=== PATIENT | male | born 1960 | race Caucasian/White ===

== ENCOUNTER 2016-04-03 13:30 | Emergency (ER) | payer SELFPAY ==
[~2016-04-03] VITALS: Ht 172.7 cm; Wt 60.0 kg
[~2016-04-03 13:30] MED LIST: BACT2OIN TOP; DARV PO; LISI10TA PO; METOPROLOL PO; SULF1TAB47 PO
[2016-04-03 13:31] VITALS: BP 193/124; PULSE 123; RESP 16; TEMP 98.2; O2SAT 97
== END 2016-04-03 14:47 | disposition left against medical advice (07) ==
LOC: NED 13:30
DX: R68.89 Other general symptoms and signs (principal); Z53.21 Procedure and treatment not carried out due to patient leaving prior to being seen by health care provider
CPT/HCPCS: 99281

== ENCOUNTER 2016-06-21 16:33 | Emergency (ER) | payer OTHER ==
[~2016-06-21] VITALS: Ht 175.3 cm; Wt 58.0 kg
[2016-06-21 17:09] VITALS: BP 201/123; PULSE 113; RESP 16; TEMP 98.8; O2SAT 98
[2016-06-21] MEDS ORDERED: LISI-519 PO (17:21)
[2016-06-21] MEDS ORDERED: OMEP40CA2 PO (17:21)
[2016-06-21] MEDS ORDERED: HYDR50TA94 PO (17:21)
[2016-06-21] MEDS ORDERED: OMEP20CA2 (17:21)
[2016-06-21] MEDS ORDERED: TRAZ50TA12 PO (17:21)
[2016-06-21] MEDS ORDERED: LISI2.5T3 PO (17:21)
[2016-06-21] MEDS ORDERED: FOLI5CAP PO (17:21)
[2016-06-21 17:22] VITALS: BP 201/123; PULSE 108; RESP 20; O2SAT 95
[2016-06-21] MEDS ORDERED: cloNIDine HCL 0.2 MG TAB PO ONE (17:30)
[2016-06-21] MEDS ORDERED: SODIUM CHLORIDE 0.9% FLUSH 10 ML FLUSH IVF PRN (17:30)
[2016-06-21] MEDS ORDERED: SODIUM CHLOR 0.9% 1000 ML INJ 1,000 ML IV ONE ×2 (17:30)
[2016-06-21] MEDS ORDERED: LORazepam 2 MG/ML VIAL IV PUSH ONE (17:45)
--- NOTE | 2016-06-21 17:46 | PD ---
HPI Chief Complaint: Hypertension Time Seen by Provider: 17:09 Travel History International Travel<30 days: No Contact w/Intl Traveler<30days: No Traveled to known affect area: No History of Present Illness HPI Patient is a 55-year-old male with history of alcohol abuse, hypertension, drug abuse, COPD with "chronic bronchitis" who presents to emergency room for evaluation of hypertension. Patient reports that he was sent to the [facility] at the [facility] as he went for checkup today. Patient reports that he currently is taking lisinopril 7.5 mg daily, patient is unsure if he took his medications this morning. Patient was told to emergency room as his blood pressure was elevated. Patient reports that he does have a slight frontal headache at this time, patient denies vision changes, denies nausea or vomiting. Patient denies chest pain or shortness of breath. Patient denies any abdominal pain, no other complaints at this time. Patient endorses that he is an alcoholic, reports that he did drink around 2 beers today as well as a shot of whiskey, he reports that he is hungry as he did not eat anything all day. Patient also endorses that he abused opioids in the past. Patient reports that he took himself off his opioids 3 months ago "Cold turkey." Patient with no other complaints. PFSH Past Medical History Cardiovascular Problems: Yes (HTN) Diminished Hearing: No Hypertension: Yes Ulcer: Yes Past Surgical History Tonsillectomy: Yes Social History Alcohol Use: Yes Tobacco Use: Yes (2 PPD) Substance Use: No Allergies-Medications (Allergen,Severity, Reaction): Coded Allergies: No Known Allergies (Verified , 09/17/07) Reported Meds & Prescriptions Reported Meds & Active Scripts Active Bactroban 2% Oint (22 gm) (Mupirocin) 22 Gm Oint 2 % TOP BID 7 Days APPLY TO AFFECTED AREAS Bactrim Ds (Trimethoprim/Sulfamethoxazole) Tab 1 Tab PO BID Darvocet-N 100 (Propoxyphene Napsylate/Acetam) Tab 1 Tab PO Q6HPRN FOR PAIN Reported Trazodone (Trazodone HCl) 50 Mg Tab 75 Mg PO HS Lisinopril 5 Mg Tab 5 Mg PO DAILY Lisinopril 2.5 Mg Tab 2.5 Mg PO DAILY Hydroxyzine HCl 50 Mg Tab 50 Mg PO HS Folic Acid 5 Mg Cap 1 Mg PO DAILY Omeprazole 40 Mg Cap 40 Mg PO DAILY Omeprazole 20 Mg Cap [Metoprolol] 25 Mg PO BID Lisinopril/Hctz 10 mg/12.5 mg 10 mg/12.5 mg Tab 1 Tab PO DAILY Review of Systems General / Constitutional: No: Fever, Chills Eyes: No: Diploplia, Visual changes HENT: Positive: Headaches Cardiovascular: No: Chest Pain or Discomfort Respiratory: Positive: Cough, Shortness of Breath Gastrointestinal: No: Abdominal Pain Genitourinary: No: Dysuria Musculoskeletal: No: Pain Skin: No Rash Neurologic: No: Weakness Psychiatric: No: Depression Endocrine: No: Polydipsia Hematologic/Lymphatic: No: Easy Bruising Physical Exam Narrative GENERAL: pt intoxicated SKIN: Focused skin assessment warm/dry. HEAD: Atraumatic. Normocephalic. EYES: Pupils equal and round. No scleral icterus. No injection or drainage. ENT: No nasal bleeding or discharge. Mucous membranes pink and moist. NECK: Trachea midline. No JVD. CARDIOVASCULAR: tachycardia. No murmur appreciated. RESPIRATORY: No accessory muscle use. scattered wheezing on exam GASTROINTESTINAL: Abdomen soft, non-tender, nondistended. Hepatic and splenic margins not palpable. MUSCULOSKELETAL: No obvious deformities. No clubbing. No cyanosis. No edema. NEUROLOGICAL: Awake and alert. No obvious cranial nerve deficits. Motor grossly within normal limits. Normal speech. PSYCHIATRIC: Appropriate mood and affect; insight and judgment normal. Data Data Last Documented VS Vital Signs Date Time Temp Pulse Resp B/P Pulse Ox O2 Delivery O2 Flow Rate FiO2 06/21/16 18:30 100 18 188/100 99 Room Air 06/21/16 17:09 98.8 Orders Electrocardiogram (06/21/16 17:26) Prothrombin Time / Inr (Pt) (06/21/16 17:26) Act Partial Throm Time (Ptt) (06/21/16 17:26) Complete Blood Count With Diff (06/21/16 17:26) Comprehensive Metabolic Panel (06/21/16 17:26) Drug Screen, Random Urine (06/21/16 17:26) Urinalysis - C+S If Indicated (06/21/16 17:26) Ct Brain W/O Iv Contrast(Rout) (06/21/16 17:26) Chest, Single Ap (06/21/16 17:26) Ecg Monitoring (06/21/16 17:26) Iv Access Insert/Monitor (06/21/16 17:26) Oximetry (06/21/16 17:26) Sodium Chloride 0.9% Flush (Ns Flush) (06/21/16 17:30) Sodium Chlor 0.9% 1000 Ml Inj (Ns 1000 M (06/21/16 17:30) Clonidine (Catapres) (06/21/16 17:30) Sodium Chlor 0.9% 1000 Ml Inj (Ns 1000 M (06/21/16 17:30) Lorazepam Inj (Ativan Inj) (06/21/16 17:45) Alcohol (Ethanol) (06/21/16 17:45) Labs Laboratory Tests Test 06/21/16 06/21/16 17:30 17:45 Urine Color YELLOW Urine Turbidity CLEAR Urine pH 5.5 Urine Specific [place] 1.013 Urine Protein TRACE mg/dL Urine Glucose (UA) 150 mg/dL Urine Ketones NEG mg/dL Urine Occult Blood NEG Urine Nitrite NEG Urine Bilirubin NEG Urine Urobilinogen LESS THAN 2.0 MG/DL Urine Leukocyte Esterase NEG Urine WBC 1 /hpf Urine Hyaline Casts 2 /lpf Urine Mucus FEW /lpf Microscopic Urinalysis Comment CATH-CULT NOT IND Urine Opiates Screen NEG Urine Barbiturates Screen NEG Urine Amphetamines Screen NEG Urine Benzodiazepines Screen NEG Urine Cocaine Screen NEG Urine Cannabinoids Screen POS White Blood Count 5.4 TH/MM3 Red Blood Count 3.73 MIL/MM3 Hemoglobin 13.5 GM/DL Hematocrit 38.8 % Mean Corpuscular Volume 104.0 FL Mean Corpuscular Hemoglobin 36.3 PG Mean Corpuscular Hemoglobin 34.9 % Concent Red Cell Distribution Width 14.3 % Platelet Count 234 TH/MM3 Mean Platelet Volume 8.0 FL Neutrophils (%) (Auto) 61.7 % Lymphocytes (%) (Auto) 27.0 % Monocytes (%) (Auto) 9.1 % Eosinophils (%) (Auto) 1.0 % Basophils (%) (Auto) 1.2 % Neutrophils # (Auto) 3.3 TH/MM3 Lymphocytes # (Auto) 1.4 TH/MM3 Monocytes # (Auto) 0.5 TH/MM3 Eosinophils # (Auto) 0.1 TH/MM3 Basophils # (Auto) 0.1 TH/MM3 CBC Comment DIFF FINAL Differential Comment Prothrombin Time 10.4 SEC Prothromb Time International 0.9 RATIO Ratio Activated Partial 24.5 SEC Thromboplast Time Sodium Level 144 MEQ/L Potassium Level 3.4 MEQ/L Chloride Level 111 MEQ/L Carbon Dioxide Level 22.2 MEQ/L Anion Gap 11 MEQ/L Blood Urea Nitrogen 4 MG/DL Creatinine 0.62 MG/DL Estimat Glomerular Filtration 135 ML/MIN Rate Random Glucose 62 MG/DL Calcium Level 8.0 MG/DL Total Bilirubin 0.3 MG/DL Aspartate Amino Transf 45 U/L (AST/SGOT) Alanine Aminotransferase 23 U/L (ALT/SGPT) Alkaline Phosphatase 83 U/L Total Protein 6.8 GM/DL Albumin 4.0 GM/DL Ethyl Alcohol Level 318 MG/DL [facility] Medical Decision Making Medical Screen Exam Complete: Yes Emergency Medical Condition: Yes Interpretation(s) EKG at 1735: Sinus tach at 102bpm, qt/qtc: 340/399, no acute st or t wave changes Vital Signs Date Time Temp Pulse Resp B/P Pulse Ox O2 Delivery O2 Flow Rate FiO2 06/21/16 17:22 24 95 06/21/16 17:22 108 20 201/123 95 Room Air 06/21/16 17:09 98.8 113 16 201/123 98 Differential Diagnosis Hypertensive urgency, alcohol abuse, electrolyte abnormality Narrative Course Patient is a 55-year-old male who has history of hypertension, alcohol abuse, drug abuse, COPD, presents to emergency room with complaints of hypertension. Patient reports that he has been compliant with his medications and has been taking lisinopril 7.5 mg daily, patient was at the [facility] for a checkup after last being seen 1.5 years ago. Patient was told to go to the emergency room as his blood pressure was elevated today at 201/123. Patient's heart rate was 113. Patient unsure if he took his blood pressure medications today. Patient does admit to drinking today, reports that he had 2 beers and 1 shot of whiskey. Patient's only complaint at this time is a mild frontal headache as well as "I am hungry." Plan to obtain labs and studies as well ct of head to evaluate for intracranial process. Plan to monitor patient Vital Signs Date Time Temp Pulse Resp B/P Pulse Ox O2 Delivery O2 Flow Rate FiO2 06/21/16 18:30 100 18 188/100 99 Room Air 06/21/16 17:22 24 95 06/21/16 17:22 108 20 201/123 95 Room Air 06/21/16 17:09 98.8 113 16 201/123 98 Laboratory Tests Test 06/21/16 06/21/16 17:30 17:45 Urine Color YELLOW (YELLW/STRAW) Urine Turbidity CLEAR (CLEAR) Urine pH 5.5 (5.0-8.5) Urine Specific [place] 1.013 (1.002-1.035) Urine Protein TRACE mg/dL (NEG-TRACE) Urine Glucose (UA) 150 mg/dL (NEG) Urine Ketones NEG mg/dL (NEG) Urine Occult Blood NEG (NEG) Urine Nitrite NEG (NEG) Urine Bilirubin NEG (NEG) Urine Urobilinogen LESS THAN 2.0 MG/DL (LESS THAN 2.0) Urine Leukocyte Esterase NEG (NEG) Urine WBC 1 /hpf (0-5) Urine Hyaline Casts 2 /lpf (RARE) Urine Mucus FEW /lpf (OCC) Microscopic Urinalysis Comment CATH-CULT NOT IND Urine Opiates Screen NEG (NEG) Urine Barbiturates Screen NEG (NEG) Urine Amphetamines Screen NEG (NEG) Urine Benzodiazepines Screen NEG (NEG) Urine Cocaine Screen NEG (NEG) Urine Cannabinoids Screen POS (NEG) White Blood Count 5.4 TH/MM3 (4.0-11.0) Red Blood Count 3.73 MIL/MM3 (4.50-5.90) Hemoglobin 13.5 GM/DL (13.0-17.0) Hematocrit 38.8 % (39.0-51.0) Mean Corpuscular Volume 104.0 FL (80.0-100.0) Mean Corpuscular Hemoglobin 36.3 PG (27.0-34.0) Mean Corpuscular Hemoglobin 34.9 % Concent (32.0-36.0) Red Cell Distribution Width 14.3 % (11.6-17.2) Platelet Count 234 TH/MM3 (150-450) Mean Platelet Volume 8.0 FL (7.0-11.0) Neutrophils (%) (Auto) 61.7 % (16.0-70.0) Lymphocytes (%) (Auto) 27.0 % (9.0-44.0) Monocytes (%) (Auto) 9.1 % (0.0-8.0) Eosinophils (%) (Auto) 1.0 % (0.0-4.0) Basophils (%) (Auto) 1.2 % (0.0-2.0) Neutrophils # (Auto) 3.3 TH/MM3 (1.8-7.7) Lymphocytes # (Auto) 1.4 TH/MM3 (1.0-4.8) Monocytes # (Auto) 0.5 TH/MM3 (0-0.9) Eosinophils # (Auto) 0.1 TH/MM3 (0-0.4) Basophils # (Auto) 0.1 TH/MM3 (0-0.2) CBC Comment DIFF FINAL Differential Comment Prothrombin Time 10.4 SEC (9.8-11.6) Prothromb Time International 0.9 RATIO Ratio Activated Partial 24.5 SEC Thromboplast Time (24.3-30.1) Sodium Level 144 MEQ/L (136-145) Potassium Level 3.4 MEQ/L (3.5-5.1) Chloride Level 111 MEQ/L (98-107) Carbon Dioxide Level 22.2 MEQ/L (21.0-32.0) Anion Gap 11 MEQ/L (5-15) Blood Urea Nitrogen 4 MG/DL (7-18) Creatinine 0.62 MG/DL (0.60-1.30) Estimat Glomerular Filtration 135 ML/MIN Rate (>89) Random Glucose 62 MG/DL (74-106) Calcium Level 8.0 MG/DL (8.5-10.1) Total Bilirubin 0.3 MG/DL (0.2-1.0) Aspartate Amino Transf 45 U/L (15-37) (AST/SGOT) Alanine Aminotransferase 23 U/L (12-78) (ALT/SGPT) Alkaline Phosphatase 83 U/L (45-117) Total Protein 6.8 GM/DL (6.4-8.2) Albumin 4.0 GM/DL (3.4-5.0) Ethyl Alcohol Level 318 MG/DL (0-5) Last Impressions Head CT 06/21/161725 Signed Impressions: Service Date/Time: Tuesday, June 21, 2016 18:22 - CONCLUSION: No acute abnormality seen. There does appear to be some suspected atrophy. Ed Caicedo MD Chest X-Ray 06/21/161725 Signed Impressions: Service Date/Time: Tuesday, June 21, 2016 17:28 - CONCLUSION: No acute disease. Solomon Magdaleno MD lab work reviewed, etoh 318, cannabis is positive vss at this time. plan to dc patient to home with outpt follow up reviewed all labs and studies with patient in detail. patient will follow up with pcp and will return to ER plan to add norvasc to htn meds Diagnosis Primary Impression: Hypertension Qualified Code: I10 - Essential hypertension Additional Impressions: Alcohol intoxication Hypokalemia Drug abuse Patient Instructions: General Instructions Additional Instructions: Please follow-up with your primary care doctor tomorrow for blood pressure recheck Please take all medications as prescribed Return to emergency with symptoms worsen or progress Return to emergency room as needed Please drink alcohol responsibly Med/Other Pt SpecificInfo: Prescription(s) given Scripts Amlodipine (Norvasc)5 Mg Tab5 Mg PO DAILY #30 TAB Ref 0 Prov:Bri Miller DO 06/21/16 Disposition: 01 DISCHARGE HOME Condition: Stable Bri Miller DO Jun 21, 2016 17:46
--- NOTE | 2016-06-21 17:53 | RADRPT ---
EXAM DATE/TIME: 06/21/2016 17:28 [facility] COMPARISON: No previous studies available for comparison. INDICATIONS : Shortness of breath. MEDICAL HISTORY : Hypertension. SURGICAL HISTORY : None. ENCOUNTER: Initial ACUITY: 1 day PAIN SCORE: 0/10 LOCATION: Bilateral chest FINDINGS: A single view of the chest demonstrates the lungs to be symmetrically aerated without evidence of mas s, infiltrate or effusion. The cardiomediastinal contours are unremarkable. Osseous structures are intact. CONCLUSION: No acute disease. Solomon Magdaleno MD on June 21, 2016 at 17:50 Board Certified Radiologist. This report was verified electronically.
[2016-06-21 18:02] LABS: AUTOMATED NEUTROPHIL # 3.3 TH/MM3 (1.8-7.7); BASOPHIL # 0.1 TH/MM3 (0-0.2); BASOPHIL % 1.2 % (0.0-2.0); EOSINOPHIL # 0.1 TH/MM3 (0-0.4); HEMATOCRIT 38.8 % (39.0-51.0); HEMO FLAGS DIFF FINAL; LYMPHOCYTE # 1.4 TH/MM3 (1.0-4.8); MEAN CORPUSCULAR HEMOGLOBIN 36.3 PG (27.0-34.0); MEAN CORPUSCULAR HGB CONC 34.9 % (32.0-36.0); MONO % 9.1 % (0.0-8.0); NEUT % 61.7 % (16.0-70.0); PLATELET COUNT 234 TH/MM3 (150-450); RED BLOOD COUNT 3.73 MIL/MM3 (4.50-5.90); RED CELL DISTRIBUTION WIDTH 14.3 % (11.6-17.2); WHITE BLOOD COUNT 5.4 TH/MM3 (4.0-11.0)
[2016-06-21 18:11] LABS: APTT (PATIENT) 24.5 SEC (24.3-30.1); INTERNATIONAL NORMALIZED RATIO 0.9 RATIO; PROTHROMBIN TIME - PATIENT 10.4 SEC (9.8-11.6)
[2016-06-21 18:28] LABS: ALT (GPT) 23 U/L (12-78); ANION GAP 11 MEQ/L (5-15); AST (GOT) 45 U/L (15-37); BICARBONATE 22.2 MEQ/L (21.0-32.0); BLOOD UREA NITROGEN 4 MG/DL (7-18); CHLORIDE 111 MEQ/L (98-107); GLOMERULAR FILTRATION RATE 135 ML/MIN (>89); POTASSIUM 3.4 MEQ/L (3.5-5.1); SODIUM (NA) 144 MEQ/L (136-145)
[2016-06-21 18:30] VITALS: BP 188/100; PULSE 100; RESP 18; O2SAT 99
[2016-06-21 18:32] LABS: ALKALINE PHOSPHATASE 83 U/L (45-117); TOTAL BILIRUBIN ADULT 0.3 MG/DL (0.2-1.0)
[2016-06-21 18:39] LABS: BLOOD, URINE NEG (NEG); GLUCOSE,URINE 150 mg/dL (NEG); HYALINE CAST, URINE 2 /lpf (RARE); KETONE, URINE NEG (NEG); MUCUS URINE FEW /lpf (OCC); NITRITE,URINE NEG (NEG); PH, URINE 5.5 (5.0-8.5); URINE COLOR YELLOW (YELLW/STRAW)
[2016-06-21 18:44] LABS: AMPHETAMINE, URINE NEG (NEG); BARBITURATES, URINE NEG (NEG); COCAINE, URINE NEG (NEG)
[2016-06-21 18:49] LABS: COMMENT (UR) CATH-CULT NOT IND; CULTURE IF INDICATED CATH CULTURE NOT IND
--- NOTE | 2016-06-21 19:00 | RADRPT ---
EXAM DATE/TIME: 06/21/2016 18:22 [facility] COMPARISON: No previous studies available for comparison. INDICATIONS : Dizziness. RADIATION DOSE: 36.05 CTDIvol (mGy) MEDICAL HISTORY : Hypertension. Cardiovascular disease SURGICAL HISTORY : None. ENCOUNTER: Initial ACUITY: 1 day PAIN SCALE: 0/10 LOCATION: cranial TECHNIQUE: Multiple contiguous axial images were obtained of the head. Using automated exposure control and adj ustment of the mA and/or kV according to patient size, radiation dose was kept as low as reasonably a chievable to obtain optimal diagnostic quality images. FINDINGS: CEREBRUM: The ventricles and cortical sulci are mildly widened. There is some expansion of the extra-axial spac es over the frontal lobes. No evidence of midline shift, mass lesion, hemorrhage or acute infarctio n. No focal extra-axial fluid collections are seen. POSTERIOR FOSSA: The cerebellum and brainstem are intact. The 4th ventricle is midline. The cerebellopontine angle i s unremarkable. EXTRACRANIAL: The visualized portion of the orbits is intact. SKULL: The calvaria is intact. No evidence of skull fracture. CONCLUSION: No acute abnormality seen. There does appear to be some suspected atrophy. Ed Caicedo MD on June 21, 2016 at 18:56 Board Certified Radiologist. This report was verified electronically.
[2016-06-21] MEDS ORDERED: AMLO5 PO (19:32)
--- NOTE | 2016-06-22 19:21 | EKG ---
Date Performed: 06/21/2016 Time Performed: 17:35:42 PTAGE: 55 years EKG: SINUS TACHYCARDIA ABNORMAL RHYTHM ECG NO PREVIOUS TRACING DOCTOR: Nahomi Lawson Interpretating Date/Time 06/22/2016 19:20:38
== END 2016-06-21 20:23 | disposition home or self-care (01) ==
LOC: NEPD 16:33
DX: I10 Essential (primary) hypertension (principal); F10.129 Alcohol abuse with intoxication, unspecified; E87.6 Hypokalemia; F19.10 Other psychoactive substance abuse, uncomplicated; R00.0 Tachycardia, unspecified; R51 Headache; F17.200 Nicotine dependence, unspecified, uncomplicated; Z87.09 Personal history of other diseases of the respiratory system; Z87.19 Personal history of other diseases of the digestive system
CPT/HCPCS: 70450; 71010; 80053; 80307; 81001; 85025; 85610; 85730; 93005; 96361; 96374; 99284; J2060; J7030

== ENCOUNTER 2016-07-30 22:45 | Emergency (ER) | payer OTHER ==
[~2016-07-30 22:45] MED LIST changes: +AMLO5 PO; +FOLI5CAP PO; +HYDR50TA94 PO; +LISI-519 PO; +LISI2.5T3 PO; +OMEP20CA2; +OMEP40CA2 PO; +TRAZ50TA12 PO
[2016-07-30 22:55] VITALS: BP 189/109; PULSE 112; RESP 18; TEMP 98.4; O2SAT 99
[2016-07-30] MEDS ORDERED: GABA400C5 PO (22:59)
[2016-07-30] MEDS ORDERED: LISI-519 PO (22:59)
[2016-07-30] MEDS ORDERED: oxyCODONE/ACETAMINOPHEN 10 MG/325 MG TAB PO ONE (23:00)
--- NOTE | 2016-07-30 23:26 | PD ---
HPI Chief Complaint: Pain: Acute or Chronic Time Seen by Provider: 22:56 Travel History International Travel<30 days: No Contact w/Intl Traveler<30days: No Traveled to known affect area: No History of Present Illness HPI 56yo M with alcohol abuse, COPD, HTN here because he ran out of his percocet today. States he broke his L5 and has a brace on and went to [facility] for this on July 13. States he was discharge with percocet and followed up with his PMD at the [facility]. However, states they only gave him gabapentin at the [facility] and it is not helping. Denies any new injury, fever, new weakness or numbness, chest pain, sob, n/v, urinary complaints. Pt has shooting pain down left leg and this is not new. PFSH Past Medical History Cardiovascular Problems: Yes (HTN) Diminished Hearing: No Gastrointestinal Disorders: Yes (ulcers) GERD: Yes (ulcer) Hypertension: Yes Musculoskeletal: Yes (BACK FX 07/13/16) Immunizations Current: Yes Ulcer: Yes Past Surgical History Tonsillectomy: Yes Other Surgery: Yes (egd) Social History Alcohol Use: Yes (beer daily) Tobacco Use: Yes Substance Use: Yes (occu. last time 3 days ago) Allergies-Medications (Allergen,Severity, Reaction): Coded Allergies: No Known Allergies (Verified , 07/30/16) Reported Meds & Prescriptions Reported Meds & Active Scripts Active Reported Lisinopril 5 Mg Tab 5 Mg PO DAILY Gabapentin 400 Mg Cap 400 Cap PO TID Review of Systems Except as stated in HPI: all other systems reviewed are Neg Physical Exam Narrative GENERAL: 56yo M in moderate distress. SKIN: Focused skin assessment warm/dry. HEAD: Atraumatic. Normocephalic. CARDIOVASCULAR: Regular rate and rhythm. No murmur appreciated. RESPIRATORY: No accessory muscle use. Clear to auscultation. Breath sounds equal bilaterally. GASTROINTESTINAL: Abdomen soft, non-tender, nondistended. BACK: No step off. No hematoma, erythema. +TTP L5. TLSO brace on. MUSCULOSKELETAL: No obvious deformities. No clubbing. No cyanosis. Trace bilateral lower ext edema. NEUROLOGICAL: Awake and alert. No obvious cranial nerve deficits. Muscle strength equal. Sensation equal in bilateral lower ext. Positive straight leg test on left. Not new. Normal speech. PSYCHIATRIC: Appropriate mood and affect; insight and judgment normal. Data Data Last Documented VS Vital Signs Date Time Temp Pulse Resp B/P Pulse Ox O2 Delivery O2 Flow Rate FiO2 07/30/16 22:55 98.4 112 18 189/109 99 Orders Oxycodone-Acetamin 10-325 Mg (Percocet 1 (07/30/16 23:00) MDM Medical Decision Making Medical Screen Exam Complete: Yes Emergency Medical Condition: Yes Differential Diagnosis Malingering vs. chronic pain secondary to L5 fracture Narrative Course 56yo M with recent history of L5 fracture in a back brace here because he ran out of his percocet this afternoon. He states that [facility] would not give him any more pain medication. Denies any new trauma. Denies any fever, IVDA, new weakness or numbness or urinary complaints. Pt given percocet 10-325mg here and states pain has improved. Pt states he needs more pain medication to go home with. However, I looked him up on [place] [facility] Monitoring [facility] and he was prescribed #30 percocet 10-[address] Mason Marmolejo on 07/23/16 and #12 percocet 10-325 on 07/20/[address] Arroyo. Pt instructed to follow up with pain management as outpatient for further pain management. Diagnosis Primary Impression: Chronic pain Qualified Code: G89.29 - Other chronic pain Patient Instructions: General Instructions, Narcotic given in the ED Departure Forms: Tests/Procedures Additional Instructions: Please follow up with your PMD or pain management as outpatient. Return to the ED if symptoms worsen. Med/Other Pt SpecificInfo: Prescription(s) given Scripts Ibuprofen 400 Mg [id number] Mg PO Q8H PRN (PAIN SCALE 1 TO 4) #20 TAB Ref 0 Prov:Selena Em DO 07/31/16 Disposition: 01 DISCHARGE HOME Condition: Stable Selena Em DO Jul 30, 2016 23:26
[2016-07-31] MEDS ORDERED: IBUP400T20 PO (00:31)
[2016-07-31 01:55] VITALS: BP 190/119; PULSE 103; RESP 16; O2SAT 96
[2016-07-31] MEDS ORDERED: LISINOPRIL 5 MG TAB PO ONE (02:30)
[2016-07-31 03:31] VITALS: BP 174/92; PULSE 98; RESP 16; O2SAT 97
== END 2016-07-31 06:14 | disposition home or self-care (01) ==
LOC: NEPC 22:45
DX: G89.29 Other chronic pain (principal); M54.5 Low back pain; Z87.81 Personal history of (healed) traumatic fracture; Z91.81 History of falling; I10 Essential (primary) hypertension; K21.9 Gastro-esophageal reflux disease without esophagitis; Z87.891 Personal history of nicotine dependence
CPT/HCPCS: 99283

== ENCOUNTER 2016-08-15 06:26 | Emergency (ER) | payer OTHER ==
[~2016-08-15] VITALS: Ht 172.7 cm; Wt 60.0 kg
[~2016-08-15 06:26] MED LIST changes: -AMLO5 PO; -BACT2OIN TOP; -DARV PO; -FOLI5CAP PO; +GABA400C5 PO; -HYDR50TA94 PO; +IBUP400T20 PO; -LISI10TA PO; -LISI2.5T3 PO; -METOPROLOL PO; -OMEP20CA2; -OMEP40CA2 PO; -SULF1TAB47 PO; -TRAZ50TA12 PO
[2016-08-15 06:37] VITALS: BP 169/120; PULSE 110; RESP 16; TEMP 98.8; O2SAT 98
[2016-08-15 06:44] VITALS: BP 169/120; PULSE 110; RESP 14; O2SAT 99
--- NOTE | 2016-08-15 06:54 | PD ---
HPI Chief Complaint: Psychiatric Symptoms Time Seen by Provider: 06:50 Travel History International Travel<30 days: No Contact w/Intl Traveler<30days: No Traveled to known affect area: No History of Present Illness HPI Patient is a 56 year old male presenting to the emergency Department under [place] act for making suicidal ideations after he called 911 seeking help for his broken back. He told the plating operator that he was "close to committing suicide ". Patient takes that he has a fractured lumbar vertebrae, this was diagnosed in June at [facility]. Patient admits drinking alcohol today, he denies any suicidal or homicidal ideations. PFSH Past Medical History Cardiovascular Problems: Yes (HTN) Diminished Hearing: No Gastrointestinal Disorders: Yes (ulcers) GERD: Yes (ulcer) Hypertension: Yes Musculoskeletal: Yes (BACK FX 07/13/16) Immunizations Current: Yes Ulcer: Yes Past Surgical History Tonsillectomy: Yes Other Surgery: Yes (egd) Social History Alcohol Use: Yes (beer daily) Tobacco Use: Yes Substance Use: Yes (not in the last 30 days) Allergies-Medications (Allergen,Severity, Reaction): Coded Allergies: No Known Allergies (Verified , 08/18/16) Reported Meds & Prescriptions Reported Meds & Active Scripts Active Ibuprofen 400 Mg Tab 400 Mg PO Q8H PRN Reported Lisinopril 5 Mg Tab 5 Mg PO DAILY Gabapentin 400 Mg Cap 400 Cap PO TID Review of Systems Except as stated in HPI: all other systems reviewed are Neg Psychiatric: Positive: Suicidal Ideations, Substance Abuse Physical Exam Exam Limitations: Intoxication Narrative GENERAL: Thin, well-developed, alert male. Resting comfortably in no acute distress SKIN: Focused skin assessment warm/dry. HEAD: Atraumatic. Normocephalic. EYES: Pupils equal and round. No scleral icterus. No injection or drainage. ENT: No nasal bleeding or discharge. Mucous membranes pink and moist. NECK: Trachea midline. No JVD. CARDIOVASCULAR: Regular rate and rhythm. No murmur appreciated. RESPIRATORY: No accessory muscle use. Clear to auscultation. Breath sounds equal bilaterally. GASTROINTESTINAL: Abdomen soft, non-tender, nondistended. Hepatic and splenic margins not palpable. MUSCULOSKELETAL: No obvious deformities. No clubbing. No cyanosis. No edema. NEUROLOGICAL: Awake and alert. No obvious cranial nerve deficits. Motor grossly within normal limits. Normal speech. PSYCHIATRIC: Appropriate mood and affect; insight and judgment normal. Data Data Last Documented VS Vital Signs Date Time Temp Pulse Resp B/P Pulse Ox O2 Delivery O2 Flow Rate FiO2 08/15/16 11:15 120 18 144/105 97 Room Air 08/15/16 06:37 98.8 Orders Complete Blood Count With Diff (08/15/16 06:44) Comprehensive Metabolic Panel (08/15/16 06:44) Psych Screen (08/15/16 06:44) Drug Screen, Random Urine (08/15/16 06:44) Alcohol (Ethanol) (08/15/16 06:44) Salicylates (Aspirin) (08/15/16 06:44) Tylenol (Acetaminophen) (08/15/16 06:44) Ibuprofen (Motrin) (08/15/16 07:00) Special Diet Instructions (08/15/16 08:03) Diet Regular Basic (08/15/16 Breakfast) Labs Laboratory Tests Test 08/15/16 08/15/16 06:45 07:15 White Blood Count 6.8 TH/MM3 Red Blood Count 3.92 MIL/MM3 Hemoglobin 13.8 GM/DL Hematocrit 39.9 % Mean Corpuscular Volume 101.8 FL Mean Corpuscular Hemoglobin 35.2 PG Mean Corpuscular Hemoglobin 34.6 % Concent Red Cell Distribution Width 13.7 % Platelet Count 460 TH/MM3 Mean Platelet Volume 8.0 FL Neutrophils (%) (Auto) 56.4 % Lymphocytes (%) (Auto) 29.6 % Monocytes (%) (Auto) 10.9 % Eosinophils (%) (Auto) 1.8 % Basophils (%) (Auto) 1.3 % Neutrophils # (Auto) 3.8 TH/MM3 Lymphocytes # (Auto) 2.0 TH/MM3 Monocytes # (Auto) 0.7 TH/MM3 Eosinophils # (Auto) 0.1 TH/MM3 Basophils # (Auto) 0.1 TH/MM3 CBC Comment DIFF FINAL Differential Comment Sodium Level 135 MEQ/L Potassium Level 3.2 MEQ/L Chloride Level 100 MEQ/L Carbon Dioxide Level 21.2 MEQ/L Anion Gap 14 MEQ/L Blood Urea Nitrogen 4 MG/DL Creatinine 0.60 MG/DL Estimat Glomerular Filtration 140 ML/MIN Rate Random Glucose 94 MG/DL Calcium Level 9.2 MG/DL Total Bilirubin 0.2 MG/DL Aspartate Amino Transf 22 U/L (AST/SGOT) Alanine Aminotransferase 20 U/L (ALT/SGPT) Alkaline Phosphatase 116 U/L Total Protein 7.0 GM/DL Albumin 3.6 GM/DL Salicylates Level 4.2 MG/DL Acetaminophen Level LESS THAN 2.0 MCG/ML Ethyl Alcohol Level 277 MG/DL Urine Opiates Screen NEG Urine Barbiturates Screen NEG Urine Amphetamines Screen NEG Urine Benzodiazepines Screen NEG Urine Cocaine Screen NEG Urine Cannabinoids Screen NEG MDM Medical Decision Making Medical Screen Exam Complete: Yes Emergency Medical Condition: Yes Interpretation(s) Vital Signs Date Time Temp Pulse Resp B/P Pulse Ox O2 Delivery O2 Flow Rate FiO2 08/15/16 06:44 110 14 169/120 99 Room Air 08/15/16 06:37 98.8 110 16 169/120 98 Differential Diagnosis Mood disorder versus substance abuse versus suicidal ideations versus chronic pain versus malingering versus other Narrative Course Patient is a 56-year-old male presenting to the emergency Department under [place] act for making suicidal statements to a tying machine operator. Mental health screening discussed with the patient. Psychiatric screen ordered. Ibuprofen ordered for pain. Care of patient transferred to Paulino LOPEZ, he will determine patient's disposition. Babita Hoffman Aug 15, 2016 06:53
[2016-08-15] MEDS ORDERED: IBUPROFEN 800 MG TAB PO ONE (07:00)
[2016-08-15 07:13] LABS: AUTOMATED NEUTROPHIL # 3.8 TH/MM3 (1.8-7.7); BASOPHIL # 0.1 TH/MM3 (0-0.2); BASOPHIL % 1.3 % (0.0-2.0); EOSINOPHIL # 0.1 TH/MM3 (0-0.4); EOSINOPHIL % 1.8 % (0.0-4.0); HEMATOCRIT 39.9 % (39.0-51.0); HEMO FLAGS DIFF FINAL; LYMPH % 29.6 % (9.0-44.0); MEAN CELL VOLUME 101.8 FL (80.0-100.0); MEAN CORPUSCULAR HEMOGLOBIN 35.2 PG (27.0-34.0); MEAN CORPUSCULAR HGB CONC 34.6 % (32.0-36.0); MONO % 10.9 % (0.0-8.0); NEUT % 56.4 % (16.0-70.0); PLATELET COUNT 460 TH/MM3 (150-450); RED BLOOD COUNT 3.92 MIL/MM3 (4.50-5.90); RED CELL DISTRIBUTION WIDTH 13.7 % (11.6-17.2); WHITE BLOOD COUNT 6.8 TH/MM3 (4.0-11.0)
[2016-08-15 07:26] LABS: ANION GAP 14 MEQ/L (5-15); AST (GOT) 22 U/L (15-37); BICARBONATE 21.2 MEQ/L (21.0-32.0); BLOOD UREA NITROGEN 4 MG/DL (7-18); CHLORIDE 100 MEQ/L (98-107); GLOMERULAR FILTRATION RATE 140 ML/MIN (>89); POTASSIUM 3.2 MEQ/L (3.5-5.1); SODIUM (NA) 135 MEQ/L (136-145)
[2016-08-15 07:27] LABS: ALT (GPT) 20 U/L (12-78)
[2016-08-15 07:29] LABS: ACETAMINOPHEN LESS THAN 2.0 MCG/ML (10.0-30.0); ALKALINE PHOSPHATASE 116 U/L (45-117); TOTAL BILIRUBIN ADULT 0.2 MG/DL (0.2-1.0)
[2016-08-15 07:38] LABS: AMPHETAMINE, URINE NEG (NEG); BARBITURATES, URINE NEG (NEG); COCAINE, URINE NEG (NEG)
[2016-08-15 09:44] VITALS: RESP 16; O2SAT 99
--- NOTE | 2016-08-15 11:11 | PD ---
History of Present Illness Chief Complaint: Psychiatric Symptoms Time Seen by Provider: 11:00 Travel History International Travel<30 Days: No Contact w/Intl Traveler<30days: No Known affected area: No Legal Status Legal Status: Lees Act Lees Act Signed By: History of Present Illness: 69-year-old 56-year-old male calling 911 for help with his broken back. Apparently he told the extrusion operator that he was close to committing suicide. He was then Lees acted by law enforcement. Patient apparently was drinking alcohol on this day and has a fractured lumbar vertebrae diagnosed last month. He is denying any suicidal or homicidal ideation plan or intent at this time. He is no longer intoxicated. His cognition is intact. He demonstrates no psychotic symptoms and is felt to be competent. He is verbally leonie for safety. PFSH Past Medical History Cardiovascular Problems: Yes (HTN) Diminished Hearing: No Gastrointestinal Disorders: Yes (ulcers) GERD: Yes (ulcer) Hypertension: Yes Musculoskeletal: Yes (BACK FX 07/13/16) Immunizations Current: Yes Ulcer: Yes Past Surgical History Tonsillectomy: Yes Other Surgery: Yes (egd) Psychiatric History Psychiatric History Hx Psychiatric Treatment: Denies History of Inpatient Treatment: No Guns or firearms in home: No Social History Hx Alcohol Use: Yes (beer daily) Hx Tobacco Use: Yes Hx Substance Use: Yes (not in the last 30 days) Hx of Substance Use Treatment: No Allergies-Medications (Allergen,Severity, Reaction): Coded Allergies: No Known Allergies (Verified , 08/15/16) Reported Meds & Prescriptions Reported Meds & Active Scripts Active Ibuprofen 400 Mg Tab 400 Mg PO Q8H PRN Reported Lisinopril 5 Mg Tab 5 Mg PO DAILY Gabapentin 400 Mg Cap 400 Cap PO TID Review of Systems Except as stated in HPI: all other systems reviewed are Neg Musculoskeletal: COMPLAINS OF: Back pain Exam Alert: Yes [place]: Person, Place, Date, Situation Mood: Calm Affect: Appropriate Speech: Clear, Logical Eye Contact: Normal Memory Intact: Immediate, Recent, Remote Insight/Judgement Adequate MDM Medical Decision Making Medical Record Reviewed: Yes Assessment/Plan This physician spoke with the patient's nurse. Apparently he has several problems which include newly diagnosed back pain, a history of alcohol abuse and significant current frustration with a lack of treatment for what is reported to be a fractured vertebrae. However, the patient is no longer intoxicated and he is competent to contract for safety. He would like to be treated for his back pain on an outpatient basis. Despite the fact that the patient made suicidal comments and is abusing alcohol, it is felt he does not meet Lees act criteria or inpatient psychiatric criteria. He was referred to [facility] for assistance with alcoholism. Orders Complete Blood Count With Diff (08/15/16 06:44) Comprehensive Metabolic Panel (08/15/16 06:44) Psych Screen (08/15/16 06:44) Drug Screen, Random Urine (08/15/16 06:44) Alcohol (Ethanol) (08/15/16 06:44) Salicylates (Aspirin) (08/15/16 06:44) Tylenol (Acetaminophen) (08/15/16 06:44) Ibuprofen (Motrin) (08/15/16 07:00) Special Diet Instructions (08/15/16 08:03) Diet Regular Basic (08/15/16 Breakfast) Results Vital Signs Date Time Temp Pulse Resp B/P Pulse Ox O2 Delivery O2 Flow Rate FiO2 08/15/16 09:44 16 99 Room Air 08/15/16 09:17 14 08/15/16 06:44 110 14 169/120 99 Room Air 08/15/16 06:37 98.8 110 16 169/120 98 Laboratory Tests Test 08/15/16 08/15/16 06:45 07:15 White Blood Count 6.8 Red Blood Count 3.92 Hemoglobin 13.8 Hematocrit 39.9 Mean Corpuscular Volume 101.8 Mean Corpuscular Hemoglobin 35.2 Mean Corpuscular Hemoglobin 34.6 Concent Red Cell Distribution Width 13.7 Platelet Count 460 Mean Platelet Volume 8.0 Neutrophils (%) (Auto) 56.4 Lymphocytes (%) (Auto) 29.6 Monocytes (%) (Auto) 10.9 Eosinophils (%) (Auto) 1.8 Basophils (%) (Auto) 1.3 Neutrophils # (Auto) 3.8 Lymphocytes # (Auto) 2.0 Monocytes # (Auto) 0.7 Eosinophils # (Auto) 0.1 Basophils # (Auto) 0.1 CBC Comment DIFF FINAL Differential Comment Sodium Level 135 Potassium Level 3.2 Chloride Level 100 Carbon Dioxide Level 21.2 Anion Gap 14 Blood Urea Nitrogen 4 Creatinine 0.60 Estimat Glomerular Filtration 140 Rate Random Glucose 94 Calcium Level 9.2 Total Bilirubin 0.2 Aspartate Amino Transf 22 (AST/SGOT) Alanine Aminotransferase 20 (ALT/SGPT) Alkaline Phosphatase 116 Total Protein 7.0 Albumin 3.6 Salicylates Level 4.2 Acetaminophen Level LESS THAN 2.0 Ethyl Alcohol Level 277 Urine Opiates Screen NEG Urine Barbiturates Screen NEG Urine Amphetamines Screen NEG Urine Benzodiazepines Screen NEG Urine Cocaine Screen NEG Urine Cannabinoids Screen NEG Diagnosis Primary Impression: Adjustment disorder with mixed disturbance of emotions and conduct Additional Impression: Alcohol abuse Problem Qualifiers Eagle Rainey MD Aug 15, 2016 11:11
[2016-08-15 11:15] VITALS: BP 144/105; PULSE 120; RESP 18; O2SAT 97
== END 2016-08-15 11:36 | disposition home or self-care (01) ==
LOC: NEPD 06:26 → NEPJ 11:36
DX: F43.25 Adjustment disorder with mixed disturbance of emotions and conduct (principal); F10.129 Alcohol abuse with intoxication, unspecified; Y90.8 Blood alcohol level of 240 mg/100 ml or more; I10 Essential (primary) hypertension; K21.9 Gastro-esophageal reflux disease without esophagitis; Z72.0 Tobacco use
CPT/HCPCS: 80053; 80307; 85025; 99283

== ENCOUNTER 2016-08-18 16:23 | Inpatient (IN) | payer OTHER ==
[~2016-08-18] VITALS: Ht 170.2 cm; Wt 51.8 kg
[2016-08-18] VITALS (8 sets, daily range): BP systolic 127–183; BP diastolic 64–132; PULSE 55–116; RESP 14–23; TEMP 97.5–98.5; O2SAT 95–100
[2016-08-18] MEDS ORDERED: SODIUM CHLOR 0.9% 1000 ML INJ 1,000 ML IV SCH (16:49)
--- NOTE | 2016-08-18 16:54 | PD ---
HPI Chief Complaint: Altered Mental Status Time Seen by Provider: 16:47 Travel History International Travel<30 days: No Contact w/Intl Traveler<30days: No Traveled to known affect area: No History of Present Illness HPI 56yo M with PMH of alcohol abuse presents to the ED with altered mental status today. Pt was seen at [facility] on 08/15/16 as a Lees Act for suicidal ideation and was clear for discharge by psych. Pt apparently went to his girlfriend's house after discharge and has been in her yard since then. Pt dug a hole in her yard and has been laying there since then and she decided to call [facility] today. Pt is AAOx1, disheveled and not following commands. Pt moving all extremities. PFSH Past Medical History Cardiovascular Problems: Yes (HTN) Diminished Hearing: No Gastrointestinal Disorders: Yes (ulcers) GERD: Yes (ulcer) Hypertension: Yes Musculoskeletal: Yes (BACK FX 07/13/16) Immunizations Current: Yes Ulcer: Yes Past Surgical History Surgical History: Unable to Obtain Tonsillectomy: Yes Other Surgery: Yes (egd) Social History Alcohol Use: Yes (beer daily) Tobacco Use: Yes Substance Use: Yes (not in the last 30 days) Allergies-Medications (Allergen,Severity, Reaction): Coded Allergies: No Known Allergies (Verified , 08/18/16) Reported Meds & Prescriptions Reported Meds & Active Scripts Active Ibuprofen 400 Mg Tab 400 Mg PO Q8H PRN Reported Lisinopril 5 Mg Tab 5 Mg PO DAILY Gabapentin 400 Mg Cap 400 Cap PO TID Review of Systems ROS Limitations: Altered Mental Status Physical Exam Narrative GENERAL: 56yo M in distress. SKIN: Focused skin assessment warm/dry. HEAD: Atraumatic. Normocephalic. EYES: Pupils equal and round at 4mm bilaterally. No scleral icterus. No injection or drainage. ENT: No nasal bleeding or discharge. Mucous membranes dry. NECK: Trachea midline. No JVD. CARDIOVASCULAR: Regular rate and rhythm. No murmur appreciated. RESPIRATORY: No accessory muscle use. Clear to auscultation. Breath sounds equal bilaterally. GASTROINTESTINAL: Abdomen soft, non-tender, nondistended. MUSCULOSKELETAL: No obvious deformities. No clubbing. No cyanosis. No edema. NEUROLOGICAL: Awake and staring in space and only states his name. Does not follow commands and exam is limited due to mental status. Moving all extremities. PSYCHIATRIC: Inappropriate mood and affect; poor insight and judgment. Data Data Last Documented VS Vital Signs Date Time Temp Pulse Resp B/P Pulse Ox O2 Delivery O2 Flow Rate FiO2 08/18/16 18:30 55 17 148/64 97 Room Air 08/18/16 18:29 98.5 Orders Electrocardiogram (08/18/16 16:49) Ammonia (08/18/16 16:49) Complete Blood Count With Diff (08/18/16 16:49) Comprehensive Metabolic Panel (08/18/16 16:49) Creatine Kinase (Cpk) (08/18/16 16:49) Prothrombin Time / Inr (Pt) (08/18/16 16:49) Act Partial Throm Time (Ptt) (08/18/16 16:49) Troponin I (08/18/16 16:49) Thyroid Stimulating Hormone (08/18/16 16:49) Urinalysis - C+S If Indicated (08/18/16 16:49) Lactic Acid Sepsis Protocol (08/18/16 16:49) Blood Culture (08/18/16 16:49) Chest, Single Ap (08/18/16 16:49) Blood Glucose (08/18/16 16:49) Ecg Monitoring (08/18/16 16:49) Iv Access Insert/Monitor (08/18/16 16:49) Cath For Specimen (08/18/16 16:49) Oximetry (08/18/16 16:49) Sodium Chloride 0.9% Flush (Ns Flush) (08/18/16 17:00) Sodium Chlor 0.9% 1000 Ml Inj (Ns 1000 M (08/18/16 16:49) Drug Screen, Random Urine (08/18/16 16:49) Alcohol (Ethanol) (08/18/16 16:49) Tylenol (Acetaminophen) (08/18/16 16:49) Salicylates (Aspirin) (08/18/16 16:49) Urinary Catheter Insert/Apply (08/18/16 16:54) Urine Culture (08/18/16 16:55) Hydralazine Inj (Apresoline Inj) (08/18/16 18:00) Sodium Chlor 0.9% 1000 Ml Inj (Ns 1000 M (08/18/16 18:00) Sodium Chlor 0.9% 1000 Ml Inj (Ns 1000 M (08/18/16 18:00) Vancomycin Inj (Vancomycin Inj) (08/18/16 18:00) Piperacil-Tazo 3.375 Gm Premix (Zosyn 3. (08/18/16 18:00) Thiamine Inj (Thiamine Inj) (08/18/16 18:00) CKMB (08/18/16 16:50) CKMB% (08/18/16 16:50) Arterial Blood Gas (Abg) (08/18/16 ) Calcium Gluconate Inj (Calcium Gluconate (08/18/16 19:00) Potassium Chlor 20 Meq Premix (Kcl 20 Me (08/18/16 19:00) Admit Order (Ed Use Only) (08/18/16 18:54) Labs Laboratory Tests Test 08/18/16 08/18/16 08/18/16 08/18/16 16:50 16:55 17:20 18:55 White Blood Count 20.0 TH/MM3 Red Blood Count 3.87 MIL/MM3 Hemoglobin 13.5 GM/DL Hematocrit 39.5 % Mean Corpuscular Volume 102.1 FL Mean Corpuscular Hemoglobin 35.0 PG Mean Corpuscular Hemoglobin 34.3 % Concent Red Cell Distribution Width 14.1 % Platelet Count 452 TH/MM3 Mean Platelet Volume 8.4 FL Neutrophils (%) (Auto) 89.5 % Lymphocytes (%) (Auto) 3.1 % Monocytes (%) (Auto) 7.2 % Eosinophils (%) (Auto) 0.0 % Basophils (%) (Auto) 0.2 % Neutrophils # (Auto) 17.9 TH/MM3 Lymphocytes # (Auto) 0.6 TH/MM3 Monocytes # (Auto) 1.4 TH/MM3 Eosinophils # (Auto) 0.0 TH/MM3 Basophils # (Auto) 0.0 TH/MM3 CBC Comment DIFF FINAL Differential Comment Prothrombin Time 11.3 SEC Prothromb Time International 1.0 RATIO Ratio Activated Partial 22.9 SEC Thromboplast Time Sodium Level 147 MEQ/L Potassium Level 2.9 MEQ/L Chloride Level 99 MEQ/L Carbon Dioxide Level 26.7 MEQ/L Anion Gap 21 MEQ/L Blood Urea Nitrogen 45 MG/DL Creatinine 7.32 MG/DL Estimat Glomerular Filtration 8 ML/MIN Rate Random Glucose 120 MG/DL Lactic Acid Level 1.8 mmol/L Calcium Level 6.3 MG/DL Protein Corrected Calcium 6.2 MG/DL Total Bilirubin 0.2 MG/DL Aspartate Amino Transf 27 U/L (AST/SGOT) Alanine Aminotransferase 19 U/L (ALT/SGPT) Alkaline Phosphatase 105 U/L Ammonia 49 MCMOL/L Total Creatine Kinase 598 U/L Creatine Kinase MB 6.0 NG/ML Creatine Kinase MB % 1.0 % Troponin I 0.06 NG/ML Total Protein 7.4 GM/DL Albumin 3.7 GM/DL Thyroid Stimulating Hormone 0.550 uIU/ML 3rd Gen Acetaminophen Level LESS THAN 2.0 MCG/ML Ethyl Alcohol Level LESS THAN 3 MG/DL Urine Color YELLOW Urine Turbidity HAZY Urine pH 5.5 Urine Specific [place] 1.023 Urine Protein 100 mg/dL Urine Glucose (UA) TRACE mg/dL Urine Ketones NEG mg/dL Urine Occult Blood MOD Urine Nitrite NEG Urine Bilirubin NEG Urine Urobilinogen LESS THAN 2.0 MG/DL Urine Leukocyte Esterase NEG Urine RBC 3 /hpf Urine WBC 15 /hpf Urine Squamous Epithelial 1 /hpf Cells Urine Amorphous Sediment RARE Urine Bacteria OCC /hpf Urine Hyaline Casts 69 /lpf Urine Mucus FEW /lpf Microscopic Urinalysis Comment CATH-CULTURE IND Urine Opiates Screen NEG Urine Barbiturates Screen NEG Urine Amphetamines Screen NEG Urine Benzodiazepines Screen NEG Urine Cocaine Screen NEG Urine Cannabinoids Screen POS Serum Osmolality 323 MOSM/KG Salicylates Level 2.1 MG/DL Blood Gas Puncture Site RT FEMORAL Blood Gas Patient Temperature 98.6 Blood Gas HCO3 21 mmol/L Blood Gas Base Excess -3.4 mmol/L Blood Gas Oxygen Saturation 92 % Arterial Blood pH 7.41 Arterial Blood Partial 33 mmHg Pressure CO2 Arterial Blood Partial 77 mmHG Pressure O2 Arterial Blood Oxygen Content 15.9 Vol % Arterial Blood 0.7 % Carboxyhemoglobin Arterial Blood Methemoglobin 0.6 % Blood Gas Hemoglobin 12.2 G/DL Oxygen Delivery Device NASAL CANNULA Blood Gas Liter Flow 1 L/M MDM Medical Decision Making Medical Screen Exam Complete: Yes Emergency Medical Condition: Yes Interpretation(s) EKG: Sinus tachycardia at 115bpm. STD II, III, aVF, V3-V6. LVH. Differential Diagnosis Hepatic encephalopathy vs. metabolic encephalopathy vs. psychosis vs. ICH Narrative Course 56yo M here with altered mental status. Pt appears dehydrated, is tachycardic and hypertensive. NS IVF x3 ordered. Afebrile. Pt is saturating at 98% on RA but not following commands. AAOx1. Pt is maintaining airway and easily arousable, although not following command. Labs reviewed, leukocytosis at 20, 000. K: 2.9, replaced with 20mEq KCl. Pt with acute kidney injury at 45/7.32 compared to 4/0.6. Lactic acid 1.8. CPK is 598. Ammonia mildly elevated at 49. Troponin mildly elevated at 0.06. Calcium low at 6.2, replaced with calcium gluconate 1gm IV. Discussed with trail maintenance worker Dr. Hanks and he recommends IV hydration. Will consult. CO2 is normal. Pt is not acidotic, pH is 7.40. CXR negative. Discussed with Dr. Aguila and accepted to his service. CT brain is still pending. UA postiive bacteria. Pt given vancomycin and zoysn empirically. Also given hydralazine 10mg IV for elevated blood pressure. Given thiamine 100mg IV. Critical Care Narrative Aggregate critical care time was 90 minutes. Time to perform other separately billable procedures was not included in the critical care time. My time did not include minutes spent treating any other patients simultaneously or on activities that did not directly contribute to the patient's treatment. The services I provided to this patient were to treat and/or prevent clinically significant deterioration that could result in: cardiovascular collapse or . I provided critical care services requiring my management, as noted below: Chart data review, documentation time, medication orders and management, vital sign assessments/reviewing monitor data, ordering and reviewing lab tests, ordering and interpreting/reviewing x-rays and diagnostic studies, care of the patient and discussion of the patient with the admitting physicians. Diagnosis Primary Impression: Altered mental status Qualified Code: R41.82 - Altered mental status, unspecified altered mental status type Additional Impressions: JOE (acute kidney injury) Hypocalcemia Admitting Information Admitting Physician Requests: Admit Selena Em DO Aug 18, 2016 16:54
[2016-08-18] MEDS ORDERED: SODIUM CHLORIDE 0.9% FLUSH 5 ML FLUSH IV FLUSH PRN (17:00)
[2016-08-18 17:13] LABS: AUTOMATED NEUTROPHIL # 17.9 TH/MM3 (1.8-7.7); BASOPHIL % 0.2 % (0.0-2.0); HEMATOCRIT 39.5 % (39.0-51.0); HEMO FLAGS DIFF FINAL; LYMPH % 3.1 % (9.0-44.0); LYMPHOCYTE # 0.6 TH/MM3 (1.0-4.8); MEAN CELL VOLUME 102.1 FL (80.0-100.0); MEAN CORPUSCULAR HGB CONC 34.3 % (32.0-36.0); MONO % 7.2 % (0.0-8.0); NEUT % 89.5 % (16.0-70.0); PLATELET COUNT 452 TH/MM3 (150-450); RED BLOOD COUNT 3.87 MIL/MM3 (4.50-5.90); RED CELL DISTRIBUTION WIDTH 14.1 % (11.6-17.2)
--- NOTE | 2016-08-18 17:19 | RADRPT ---
EXAM DATE/TIME: 08/18/2016 17:12 [facility] COMPARISON: CHEST SINGLE AP, June 21, 2016, 17:28. INDICATIONS : Shortness of Breath MEDICAL HISTORY : Hypertension. SURGICAL HISTORY : None. ENCOUNTER: Initial ACUITY: 1 day PAIN SCORE: Non-responsive. LOCATION: Bilateral chest FINDINGS: A single view of the chest demonstrates the lungs to be symmetrically aerated without evidence of mas s, infiltrate or effusion. The cardiomediastinal contours are unremarkable. Old right rib fractures are stable. Scoliosis of the thoracic spine is noted. CONCLUSION: No acute cardiopulmonary disease. Mihir Palmer MD on August 18, 2016 at 17:16 Board Certified Radiologist. This report was verified electronically.
[2016-08-18 17:22] LABS: APTT (PATIENT) 22.9 SEC (24.3-30.1); PROTHROMBIN TIME - PATIENT 11.3 SEC (9.8-11.6)
[2016-08-18 17:22] LABS: BACTERIA, URINE OCC /hpf; BLOOD, URINE MOD (NEG); GLUCOSE,URINE TRACE mg/dL (NEG); HYALINE CAST, URINE 69 /lpf (RARE); KETONE, URINE NEG (NEG); MUCUS URINE FEW /lpf (OCC); NITRITE,URINE NEG (NEG); PH, URINE 5.5 (5.0-8.5); SQUAMOUS EPITHELIAL CELL URINE 1 /hpf (0-5); URINE COLOR YELLOW (YELLW/STRAW)
[2016-08-18 17:24] LABS: COMMENT (UR) CATH-CULTURE IND; CULTURE IF INDICATED CATH CULTURE IND
[2016-08-18] MEDS ORDERED: hydrALAZINE HCL 20 MG/ML VIAL IV PUSH ONE (18:00)
[2016-08-18] MEDS ORDERED: THIAMINE INJ 100 MG in SODIUM CHLORIDE 0.9% INJ 100 ML IV ONE (18:00)
[2016-08-18] MEDS ORDERED: SODIUM CHLOR 0.9% 1000 ML INJ 1,000 ML IV ONE ×2 (18:00)
[2016-08-18] MEDS ORDERED: PIPERACIL-TAZO 3.375 GM PREMIX 50 ML IV ONE (18:00)
[2016-08-18] MEDS ORDERED: VANCOMYCIN INJ 1,000 MG in SODIUM CHLOR 0.9% 250 ML INJ 250 ML IV ONE (18:00)
[2016-08-18 18:21] LABS: ALKALINE PHOSPHATASE 105 U/L (45-117); ALT (GPT) 19 U/L (12-78); ANION GAP 21 MEQ/L (5-15); AST (GOT) 27 U/L (15-37); BICARBONATE 26.7 MEQ/L (21.0-32.0); BLOOD UREA NITROGEN 45 MG/DL (7-18); CHLORIDE 99 MEQ/L (98-107); CREATINE KINASE 598 U/L (39-308); GLOMERULAR FILTRATION RATE 8 ML/MIN (>89); SODIUM (NA) 147 MEQ/L (136-145); TOTAL BILIRUBIN ADULT 0.2 MG/DL (0.2-1.0)
[2016-08-18 18:22] LABS: ACETAMINOPHEN LESS THAN 2.0 MCG/ML (10.0-30.0)
[2016-08-18 18:32] LABS: CALCIUM-PROTEIN CORRECTED 6.2 MG/DL (8.5-10.1); POTASSIUM 2.9 MEQ/L (3.5-5.1)
[2016-08-18 18:40] LABS: AMPHETAMINE, URINE NEG (NEG); BARBITURATES, URINE NEG (NEG); COCAINE, URINE NEG (NEG)
[2016-08-18] MEDS: CALCIUM GLUCONATE INJ 1 GM in DEXTROSE 5% IN WATER 100ML INJ 100 ML IV ONE ×4 (19:00→19:55)
[2016-08-18] MEDS ORDERED: POTASSIUM CHLOR 20 MEQ PREMIX 100 ML IV ONE (19:00)
--- NOTE | 2016-08-18 19:20 | HHI.HP ---
HPI Service Critical Care Medicine Primary Care Physician Unknown Admission Diagnosis AMS, JOE Diagnosis: Chief Complaint: Lees Act Travel History International Travel<30 Days: No Contact w/Intl Traveler <30 Da: No Traveled to Known Affected Are: No History of Present Illness 56 y/o man has been hiding in a hole in his girlfriends back yard for 2-3 days and arrives to ED by EMS with severe kidney failure and dehydration. He is encephalopathic and disheveled. The rapidity of renal deterioration from his baseline 4 days ago implicates a possible nephrotoxin. We will check his osmolality and pursue the possibility of ingested poisons. Leave K uncorrected for now until we know he makes urine. Lees Act back in effect. Recent admission 4 days ago involved ETOH binging and suicidal ideation. He was cleared by psych prior to discharge. Review of Systems ROS Unobtainable, confused. No family. Past Family Social History Allergies: Coded Allergies: No Known Allergies (Verified , 08/18/16) Past Medical History Past Medical History Cardiovascular Problems: Yes (HTN) Diminished Hearing: No Gastrointestinal Disorders: Yes (ulcers) GERD: Yes (ulcer) Hypertension: Yes Musculoskeletal: Yes (BACK FX 07/13/16) Immunizations Current: Yes Ulcer: Yes Past Surgical History Surgical History: Unable to Obtain Tonsillectomy: Yes Other Surgery: Yes (egd) Social History Alcohol Use: Yes (beer daily) Tobacco Use: Yes Substance Use: Yes (not in the last 30 days) Allergies-Medications Allergies-Medications (Allergen,Severity, Reaction): Coded Allergies: No Known Allergies (Verified , 08/18/16) Reported Meds & Prescriptions Reported Meds & Active Scripts Active Ibuprofen 400 Mg Tab 400 Mg PO Q8H PRN Reported Lisinopril 5 Mg Tab 5 Mg PO DAILY Gabapentin 400 Mg Cap 400 Cap PO TID Physical Exam Vital Signs Vital Signs Date Time Temp Pulse Resp B/P Pulse Ox O2 Delivery O2 Flow Rate FiO2 08/18/16 18:30 55 17 148/64 97 Room Air 08/18/16 18:29 98.5 08/18/16 17:03 116 23 183/130 100 Room Air 08/18/16 16:54 98 Room Air 08/18/16 16:36 94 14 172/132 97 Physical Exam Gen: Lethargic, disheveled. Head: Minor superficial abrasions. Neck: Supple, airway widely patent. Lungs: Scattered rhonchi, good [place] air movement, strong cough. Heart: NL S1S2, RRR, no m,r. No JVD. Abdomen: Soft, no guarding. BS active. Extremities: Multiple bug bites and scratches, well perfused. Neuro: Moves 4 limbs spontaneously with 5/5 strength. DRAKE. Groans. Laboratory Laboratory Tests Test 08/18/16 08/18/16 08/18/16 16:50 16:55 17:20 White Blood Count 20.0 Red Blood Count 3.87 Hemoglobin 13.5 Hematocrit 39.5 Mean Corpuscular Volume 102.1 Mean Corpuscular Hemoglobin 35.0 Mean Corpuscular Hemoglobin 34.3 Concent Red Cell Distribution Width 14.1 Platelet Count 452 Mean Platelet Volume 8.4 Neutrophils (%) (Auto) 89.5 Lymphocytes (%) (Auto) 3.1 Monocytes (%) (Auto) 7.2 Eosinophils (%) (Auto) 0.0 Basophils (%) (Auto) 0.2 Neutrophils # (Auto) 17.9 Lymphocytes # (Auto) 0.6 Monocytes # (Auto) 1.4 Eosinophils # (Auto) 0.0 Basophils # (Auto) 0.0 CBC Comment DIFF FINAL Differential Comment Prothrombin Time 11.3 Prothromb Time International 1.0 Ratio Activated Partial 22.9 Thromboplast Time Sodium Level 147 Potassium Level 2.9 Chloride Level 99 Carbon Dioxide Level 26.7 Anion Gap 21 Blood Urea Nitrogen 45 Creatinine 7.32 Estimat Glomerular Filtration 8 Rate Random Glucose 120 Lactic Acid Level 1.8 Calcium Level 6.3 Protein Corrected Calcium 6.2 Total Bilirubin 0.2 Aspartate Amino Transf 27 (AST/SGOT) Alanine Aminotransferase 19 (ALT/SGPT) Alkaline Phosphatase 105 Ammonia 49 Total Creatine Kinase 598 Creatine Kinase MB 6.0 Creatine Kinase MB % 1.0 Troponin I 0.06 Total Protein 7.4 Albumin 3.7 Thyroid Stimulating Hormone 0.550 3rd Gen Acetaminophen Level LESS THAN 2.0 Ethyl Alcohol Level LESS THAN 3 Urine Color YELLOW Urine Turbidity HAZY Urine pH 5.5 Urine Specific [place] 1.023 Urine Protein 100 Urine Glucose (UA) TRACE Urine Ketones NEG Urine Occult Blood MOD Urine Nitrite NEG Urine Bilirubin NEG Urine Urobilinogen LESS THAN 2.0 Urine Leukocyte Esterase NEG Urine RBC 3 Urine WBC 15 Urine Squamous Epithelial 1 Cells Urine Amorphous Sediment RARE Urine Bacteria OCC Urine Hyaline Casts 69 Urine Mucus FEW Microscopic Urinalysis Comment CATH-CULTURE IND Urine Opiates Screen NEG Urine Barbiturates Screen NEG Urine Amphetamines Screen NEG Urine Benzodiazepines Screen NEG Urine Cocaine Screen NEG Urine Cannabinoids Screen POS Salicylates Level 2.1 Date/Time Procedure Status Source Growth 08/18/16 16:55 Urine Culture Worksheet Urine Catheterized Urine Pending 08/18/16 16:55 Aerobic Blood Culture Received Blood Peripheral Pending 08/18/16 16:55 Anaerobic Blood Culture Received Blood Peripheral Pending Result Diagram: 08/18/16 1650 08/18/16 1650 Assessment and Plan Assessment and Plan Assessment: 1. Metabolic encephalopathy. 2. JOE. 3. Dehydration, severe. 4. Rhabdomyolysis. 5. Suicidal ideation. Plan: 1. Aggressive hydration. 2. Stat serum osmolality. 3. Check for alcohol poisons if osmo gap. 4. Protonix. 5. Hold antibiotics - likely just dehydration. 6. Hydralazine. 7. Stop BENNY-I. 8. Watch for ETOH withdrawal. Overall impression: Patient is critically ill from environmental exposure, dehydration, severe kidney injury, and possible poison ingestion. Prognosis is guarded. Critical care 44 mins Howard Youssef MD Aug 18, 2016 19:20
[2016-08-18] MEDS: SODIUM CHLOR 0.9% 1000 ML INJ 1,000 ML IV SCH ×2 (19:25→19:55)
[2016-08-18] MEDS ORDERED: ONDANSETRON HCL 4 MG/2 ML VIAL IV PRN (19:30)
[2016-08-18] MEDS ORDERED: CHLORHEXIDINE GLUCONATE 2 % 1 PACK (2 CLOTHS) TOP PRN (19:30)
[2016-08-18] MEDS ORDERED: MISCELLANEOUS NURSING INFORMATION XX SCH (19:30)
[2016-08-18] MEDS ORDERED: RESP: ALBUTEROL 2.5 MG/IPRATROPIUM 0.5 MG NEB (PRN) INH (19:30)
[2016-08-18] MEDS ORDERED: SENNOSIDES 8.6 MG TAB PO PRN (19:30)
[2016-08-18] MEDS ORDERED: BISACODYL 10 MG SUPP RECTAL PRN (19:30)
[2016-08-18] MEDS ORDERED: MAGNESIUM HYDROXIDE SUSP 30 ML CUP PO PRN (19:30)
[2016-08-18] MEDS ORDERED: LACTULOSE SYRUP 20 GM/30 ML CUP PO PRN (19:30)
[2016-08-18 20:34] LABS: BLOOD GAS BASE EXCESS -3.4 mmol/L (-2-2); BLOOD GAS CARBOXYHEMOGLOBIN 0.7 % (0-4); BLOOD GAS HCO3 21 mmol/L (22-26); BLOOD GAS METHEMOGLOBIN 0.6 % (0-2); BLOOD GAS O2 HGB SATURATION 92 % (90-100); BLOOD GAS OXYGEN CONTENT 15.9 Vol % (12.0-20.0); BLOOD GAS PCO2 33 mmHg (38-42); BLOOD GAS PO2 77 mmHG (61-120); BLOOD GAS TOTAL HGB 12.2 G/DL (12.0-16.0); TEMP CORR TO 98.6
[2016-08-18 20:35] LABS: CRITICAL VALUE NO; DRAW SITE RT FEMORAL; LITER FLOW 1 L/M; NUMBER OF ARTERIAL PUNCTURES 1; OXYGEN DEVICE NASAL CANNULA; STAT YES
[2016-08-18] MEDS: DOCUSATE SODIUM 50 MG/SENNA 8.6 MG TAB PO SCH (21:00)
[2016-08-18] MEDS: HEPARIN SODIUM - SQ 10,000 UNITS/ML VIAL SQ SCH (21:46)
[2016-08-18] MEDS: hydrALAZINE HCL 25 MG TAB PO SCH (21:47)
[2016-08-18] MEDS: LORazepam 2 MG/ML VIAL IV PUSH PRN (23:15)
[2016-08-19] VITALS (25 sets, daily range): BP systolic 110–224; BP diastolic 58–106; PULSE 81–128; RESP 14–40; TEMP 97.8–100.5; O2SAT 86–100
[2016-08-19 01:18] LABS: CKMB 11.1 NG/ML (0.5-3.6)
[2016-08-19] MEDS: LORazepam 2 MG/ML VIAL IV PUSH PRN ×3 (01:35→22:36)
[2016-08-19] MEDS: hydrALAZINE HCL 20 MG/ML VIAL IV PUSH PRN ×2 (03:39→22:12)
[2016-08-19] MEDS: CHLORHEXIDINE GLUCONATE 2 % 1 PACK (2 CLOTHS) TOP SCH (04:00)
[2016-08-19 04:45] LABS: AUTOMATED NEUTROPHIL # 20.2 TH/MM3 (1.8-7.7); BASOPHIL % 0.1 % (0.0-2.0); HEMATOCRIT 36.5 % (39.0-51.0); HEMO FLAGS DIFF FINAL; LYMPH % 5.1 % (9.0-44.0); LYMPHOCYTE # 1.2 TH/MM3 (1.0-4.8); MEAN CELL VOLUME 103.7 FL (80.0-100.0); MEAN CORPUSCULAR HEMOGLOBIN 34.9 PG (27.0-34.0); MEAN CORPUSCULAR HGB CONC 33.6 % (32.0-36.0); MONO % 5.6 % (0.0-8.0); NEUT % 89.2 % (16.0-70.0); PLATELET COUNT 375 TH/MM3 (150-450); RED BLOOD COUNT 3.52 MIL/MM3 (4.50-5.90); RED CELL DISTRIBUTION WIDTH 14.1 % (11.6-17.2); WHITE BLOOD COUNT 22.6 TH/MM3 (4.0-11.0)
[2016-08-19] MEDS: hydrALAZINE HCL 25 MG TAB PO SCH ×4 (06:00→22:00)
[2016-08-19 06:15] LABS: BICARBONATE 24.1 MEQ/L (21.0-32.0); MAGNESIUM 1.7 MG/DL (1.5-2.5); POTASSIUM 3.1 MEQ/L (3.5-5.1); TOTAL BILIRUBIN ADULT 0.3 MG/DL (0.2-1.0)
[2016-08-19 07:12] LABS: CKMB 14.7 NG/ML (0.5-3.6)
[2016-08-19] MEDS: PANTOPRAZOLE SODIUM 40 MG VIAL IV SCH ×2 (08:20→08:22)
[2016-08-19] MEDS: HEPARIN SODIUM - SQ 10,000 UNITS/ML VIAL SQ SCH ×2 (08:20→21:27)
[2016-08-19] MEDS: DOCUSATE SODIUM 50 MG/SENNA 8.6 MG TAB PO SCH ×2 (08:21→21:00)
[2016-08-19] MEDS ORDERED: LACTATED RINGER'S 1000 ML INJ 1,000 ML IV SCH (10:00)
[2016-08-19 10:14] LABS: BLOOD GAS BASE EXCESS -6.1 mmol/L (-2-2); BLOOD GAS CARBOXYHEMOGLOBIN 0.9 % (0-4); BLOOD GAS HCO3 19 mmol/L (22-26); BLOOD GAS METHEMOGLOBIN 1.3 % (0-2); BLOOD GAS O2 HGB SATURATION 96 % (90-100); BLOOD GAS OXYGEN CONTENT 16.9 Vol % (12.0-20.0); BLOOD GAS PCO2 41 mmHg (38-42); BLOOD GAS PO2 134 mmHg (61-120); BLOOD GAS TOTAL HGB 12.4 G/DL (12.0-16.0); CRITICAL VALUE NO; DRAW SITE RT RADIAL; LITER FLOW 2 L/M; NUMBER OF ARTERIAL PUNCTURES 1; OXYGEN DEVICE NASAL CANNULA; STAT NO; TEMP CORR TO 98.6; ULNAR PULSE PRESENT
[2016-08-19] MEDS ORDERED: Vancomycin Consult Pharmacy 1 EA OTHER SCH (10:15)
[2016-08-19] MEDS ORDERED: MISCELLANEOUS NURSING INFORMATION XX SCH (10:15)
[2016-08-19] MEDS ORDERED: DEXTROSE 50% IN WATER 50 ML VIAL(D50) IV PRN (10:15)
[2016-08-19] MEDS ORDERED: GLUCAGON 1 MG/ML VIAL OTHER PRN (10:15)
--- NOTE | 2016-08-19 10:17 | HHI.CCPN ---
Subjective Remarks/Hospital Course 56 y/o man has been hiding in a hole in his girlfriends back yard for 2-3 days and arrives to ED by EMS with severe kidney failure and dehydration. He is encephalopathic and disheveled. The rapidity of renal deterioration from his baseline 4 days ago implicates a possible nephrotoxin. We will check his osmolality and pursue the possibility of ingested poisons. Leave K uncorrected for now until we know he makes urine. [place] Act back in effect. Recent admission 4 days ago involved ETOH binging and suicidal ideation. He was cleared by psych prior to discharge. Subjective: Tmax 101.5. Patient extremely lethargic this a.m., not responding to commands. The patient received overnight approximately [address] scan of brain ordered this a.m., results pending. Creatinine kinase continues to be elevated, patient's IV fluids changed to lactated Ringer's at continuous rate 150cc/hour. Urinary retention was noted this a.m. with condom catheter, Saez placed, immediate output 600 cc. Patient continues to have electrolyte imbalances currently being corrected. Objective Vital Signs Date Time Temp Pulse Resp B/P Pulse Ox O2 Delivery O2 Flow Rate FiO2 08/19/16 08:15 99 Nasal Cannula 3.00 08/19/16 06:00 114 08/19/16 04:00 100.5 24 142/79 Intake and Output 08/18/16 08/18/16 08/19/16 08:00 16:00 00:00 Intake Total 748 ml Output Total 0 ml Balance 748 ml Result Diagram: 08/19/16 0403 08/19/16 0403 Other Results Laboratory Tests Test 08/18/16 18:55 Blood Gas Puncture Site RT FEMORAL Blood Gas Patient Temperature 98.6 Blood Gas HCO3 21 mmol/L (22-26) Blood Gas Base Excess -3.4 mmol/L (-2-2) Blood Gas Oxygen Saturation 92 % (90-100) Arterial Blood pH 7.41 (7.380-7.420) Arterial Blood Partial 33 mmHg (38-42) Pressure CO2 Arterial Blood Partial 77 mmHG Pressure O2 (61-120) Arterial Blood Oxygen Content 15.9 Vol % (12.0-20.0) Arterial Blood 0.7 % (0-4) Carboxyhemoglobin Arterial Blood Methemoglobin 0.6 % (0-2) Blood Gas Hemoglobin 12.2 G/DL (12.0-16.0) Oxygen Delivery Device NASAL CANNULA Blood Gas Liter Flow 1 L/M Objective Remarks GENERAL: Malnourished, extremely lethargic male with multiple superficial bruises/abrasions upper and lower extremities SKIN: Warm and dry. Multiple abrasions noted HEAD: Atraumatic. Normocephalic. EYES: Pupils equal and round, currently miosis noted bilateral No scleral icterus. No injection or drainage. ENT: No nasal bleeding or discharge. Mucous membranes pink and moist. NECK: Trachea midline. No JVD. CARDIOVASCULAR: Normal rate, regular rhythm. RESPIRATORY: No accessory muscle use. Clear to auscultation. Breath sounds equal bilaterally. GASTROINTESTINAL: Abdomen soft, non-tender, nondistended. No guarding. MUSCULOSKELETAL: Extremities without clubbing, cyanosis, or edema. No obvious deformities. NEUROLOGICAL: Extremely lethargic, movement of extremities to sternal rub Gen: Lethargic, disheveled. Head: Minor superficial abrasions. Neck: Supple, airway widely patent. Lungs: Scattered rhonchi, good [place] air movement, strong cough. Heart: NL S1S2, RRR, no m,r. No JVD. Abdomen: Soft, no guarding. BS active. Extremities: Multiple bug bites and scratches, well perfused. Neuro: Moves 4 limbs spontaneously with 5/5 strength. DRAKE. Groans. Procedures Pending CT of brain Urinary Catheter: Yes Assessment to: Continue Saez insert reason: Measure Accurate Output Date of Insertion: Aug 19, 2016 Vascular Central Line Catheter: No A/P Assessment and Plan Assessment: 1. Metabolic encephalopathy. 2. OJE. 3. Dehydration, severe. 4. Rhabdomyolysis. 5. Suicidal ideation. 6. Hypocalcemia 7. Hypomagnesemia 8. Leukocytosis Plan: Plan by systems: Neurologic: -Neurochecks per ICU protocol -Hold Ativan -Restraints 4 as needed -Monitor for DTs- seizure precaution -Continue thiamine and folate daily - Reconsult psychiatry when clinically appropriate Respiratory: -Obtain O2 sat greater than 92% -Obtain ABG, rule out CO2 narcosis -O2 via nasal cannula -Obtain head of bed 30 Cardiovascular: -Maintain map greater than 65 mmHg -Patient has history of hypertension- hydralazine every 6 hours PRN Renal: -Insert Saez catheter -Creatinine kinase elevated at 1539, continue to monitor serial CK levels -- Strict I/Os FEN/GI: -Replete electrolytes -Maintain nothing by mouth status -[place] IV multivitamins, thiamine and folate Heme/ID: - Begin empiric antibiotics cefepime and vancomycin will de-escalate -Blood urine culture pending Endocrine: Glucose monitoring per ICU protocol -- SSI Prophylaxis: GI Prophylaxis Protonix DVT Prophylaxis -- SCDs Heparin twice a day Lines: Peripheral lines, central line if indicated Dispo: Discussed with EMISSION SPECIALIST at bedside. This patient remains critically ill with one or more organ systems which are or may become a threat to life. I have spent in excess of 30 minutes discontinuously in the care and management of this patient. This time is exclusive of procedures, and includes, but is not limited to, evaluation of the patient, review of the medical record, discussions with family, consultants, nursing staff, or respiratory therapy, and documentation in the medical record. Patient continues critically ill secondary to severe kidney injury noted rhabdomyolysis, altered mental status possible poison ingestion, dehydration, multiple electrolyte imbalances. Physician Katherine Thurman MD Aug 19, 2016 10:16
[2016-08-19] MEDS ORDERED: CALCIUM GLUCONATE INJ 2 GM in SODIUM CHLORIDE 0.9% INJ 100 ML IV ONE (11:00)
--- NOTE | 2016-08-19 11:05 | RADRPT ---
EXAM DATE/TIME: 08/19/2016 10:48 [facility] COMPARISON: CT BRAIN W/O CONTRAST, June 21, 2016, 18:22. INDICATIONS : Altered mental status. RADIATION DOSE: 62.08 CTDIvol (mGy) MEDICAL HISTORY : Cardiovascular disease. Hypertension. SURGICAL HISTORY : None. ENCOUNTER: Initial ACUITY: 1 day PAIN SCALE: 0/10 LOCATION: cranial TECHNIQUE: Multiple contiguous axial images were obtained of the head. Using automated exposure control and adj ustment of the mA and/or kV according to patient size, radiation dose was kept as low as reasonably a chievable to obtain optimal diagnostic quality images. DICOM format image data is available electro nically for review and comparison. FINDINGS: The study is mildly degraded by patient motion. Grossly, there is no evidence of intracranial mass or hemorrhage. There is nothing to suggest acute infarction. Ventricles are stable symmetric and normal . The extracranial structures are grossly benign intact. CONCLUSION: Motion degraded exam grossly negative for acute process. Ed oMnaco MD on August 19, 2016 at 11:00 Board Certified Radiologist. This report was verified electronically.
--- NOTE | 2016-08-19 11:11 | PD.CONS ---
HPI Service Nephrology Consult Requested By Dr. Em Reason for Consult JOE Primary Care Physician Unknown History of Present Illness The patient is a 56 yo [place] male who was brought to this facility yesterday evening via [facility]. He is sedated at this time as he was conbative this morning, but according to records, has dug a hole in his girlfriend's backyard up to his neck and remained there for 3 days before she called [facility]. Was in the ED on with complaints of "fractured spine" and "almost ready to commit suicide". Uncertain if any chemicals ingested. Tox screen positive for cannaboids Admitting SCr 7.32 that improved to 5.39 at consult SCr on 08/15 ED visit 0.60 MENTAL HEALTH CASE MANAGER says that when Saez placed, he had a significant amount of UOP. Review of Systems ROS Limitations: Clinical Condition Past Family Social History Allergies: Coded Allergies: No Known Allergies (Verified , 08/18/16) Past Medical History Per charts: HTN COPD L5 fx Gastric Ulcerations Recent ED visit for suicidal ideations Past Surgical History Not obtainable Per charts, tonsillectomy Reported Medications Reported Meds & Active Scripts Active Ibuprofen 400 Mg Tab 400 Mg PO Q8H PRN Reported Lisinopril 5 Mg Tab 5 Mg PO DAILY Gabapentin 400 Mg Cap 400 Cap PO TID Active Ordered Medications Current Medications Medications (Trade) Dose Ordered Sig/Florentin Route Start Time Stop Time Status Last Admin (NS Flush) 2 ml UNSCH PRN IV FLUSH 08/18/16 17:00 (Tylenol) 650 mg Q6H PRN PO 08/18/16 19:30 (Protonix Inj) 40 mg DAILY IV 08/18/16 19:30 08/19/16 08:22 (Zofran Inj) 4 mg Q6H PRN IV 08/18/16 19:30 (Heparin Inj) 5,000 units Q12H SQ 08/18/16 20:00 08/19/16 08:20 Miscellaneous Information 1 [id number] XX 08/18/16 19:30 (Chlorhexidine 2% Cloth) 3 pack Taper DAILY@04 TOP 08/19/16 04:00 08/15/17 03:59 08/19/16 04:00 (Chlorhexidine 2% Cloth) 3 pack UNSCH PRN TOP 08/18/16 19:30 (Sanaz-Colace) 1 tab BID PO 08/18/16 21:00 (Milk Of Magnesia Liq) 30 ml Q12H PRN PO 08/18/16 19:30 (Senokot) 17.2 mg Q12H PRN PO 08/18/16 19:30 (Dulcolax Supp) 10 mg DAILY PRN RECTAL 08/18/16 19:30 (Lactulose Liq) 30 ml DAILY PRN PO 08/18/16 19:30 (Apresoline Inj) 10 mg Q2H PRN IV PUSH 08/18/16 19:30 08/19/16 03:39 (Apresoline) 25 mg Q8HR PO 08/18/16 22:00 Lorazepam 1 mg 1 mg Q2H PRN IV PUSH 08/18/16 23:00 08/19/16 03:40 Magnesium Sulfate/ Dextrose 100 ml @ 100 mls/hr Q1H IV 08/19/16 10:00 08/19/16 11:59 Calcium Gluconate 2 gm/Sodium Chloride 120 ml @ 120 mls/hr ONCE ONCE IV 08/19/16 11:00 08/19/16 11:59 (Lr 1000 ml Inj) 1,000 ml @ 150 mls/hr Q6H40M IV 08/19/16 10:00 (D50w (Vial) Inj) 50 ml UNSCH PRN IV 08/19/16 10:15 Glucagon 1 mg 1 mg UNSCH PRN OTHER 08/19/16 10:15 Multivitamins 10 ml/Folic Acid 1 mg/Sodium Chloride 510.2 ml @ 125 mls/hr Q24H IV 08/19/16 11:00 08/24/16 10:59 Thiamine HCl 100 mg/Sodium Chloride 101 ml @ 100 mls/hr Q24H IV 08/19/16 11:00 08/22/16 10:59 Pharmacy Profile Note 0 ml @ 0 mls/hr UNSCH OTHER 08/19/16 10:15 Cefepime HCl 2000 mg/Sodium Chloride 100 ml @ 200 mls/hr Q24H IV 08/19/16 11:00 (Sodium Bicarbonate 8.4% Inj/D5W 1000 ml Inj) 1,000 ml @ 75 mls/hr [id number] IV 08/19/16 10:30 Family History Not obtainable Social History Not obtainable Per charts + tobacco use + EtOH use - illicits Physical Exam Vital Signs Vital Signs Date Time Temp Pulse Resp B/P Pulse Ox O2 Delivery O2 Flow Rate FiO2 08/19/16 08:15 99 Nasal Cannula 3.00 08/19/16 06:00 114 08/19/16 04:00 128 08/19/16 04:00 100.5 128 24 142/79 94 08/19/16 02:00 109 08/19/16 00:00 97.8 100 20 124/78 93 08/19/16 00:00 100 08/18/16 22:00 99 08/18/16 21:13 97.5 104 20 144/80 100 08/18/16 20:33 Nasal Cannula 1.00 08/18/16 19:30 69 17 95 Nasal Cannula 08/18/16 19:30 95 17 127/79 95 Room Air 08/18/16 18:30 55 17 148/64 97 Room Air 08/18/16 18:29 98.5 08/18/16 17:03 116 23 183/130 100 Room Air 08/18/16 16:54 98 Room Air 08/18/16 16:36 94 14 172/132 97 Physical Exam GENERAL: Pt sleeping in bed. Weathered. Appearing older than stated age SKIN: Warm and dry. HEAD: Atraumatic. Normocephalic. EYES: Pupils equal and round. No scleral icterus. No injection or drainage. ENT: No nasal bleeding or discharge. Mucous membranes pink and moist. NECK: Trachea midline. No JVD. CARDIOVASCULAR: Regular rate and rhythm. RESPIRATORY: No accessory muscle use. Clear to auscultation. Breath sounds equal bilaterally. GASTROINTESTINAL: Abdomen soft, non-tender, nondistended. Hepatic and splenic margins not palpable. MUSCULOSKELETAL: Extremities without clubbing, cyanosis, or edema. No obvious deformities. NEUROLOGICAL: Sedated PSYCHIATRIC: Sedated Laboratory Laboratory Tests Test 08/18/16 08/18/16 08/18/16 08/18/16 16:50 16:55 17:20 18:55 White Blood Count 20.0 Red Blood Count 3.87 Hemoglobin 13.5 Hematocrit 39.5 Mean Corpuscular Volume 102.1 Mean Corpuscular Hemoglobin 35.0 Mean Corpuscular Hemoglobin 34.3 Concent Red Cell Distribution Width 14.1 Platelet Count 452 Mean Platelet Volume 8.4 Neutrophils (%) (Auto) 89.5 Lymphocytes (%) (Auto) 3.1 Monocytes (%) (Auto) 7.2 Eosinophils (%) (Auto) 0.0 Basophils (%) (Auto) 0.2 Neutrophils # (Auto) 17.9 Lymphocytes # (Auto) 0.6 Monocytes # (Auto) 1.4 Eosinophils # (Auto) 0.0 Basophils # (Auto) 0.0 CBC Comment DIFF FINAL Differential Comment Prothrombin Time 11.3 Prothromb Time International 1.0 Ratio Activated Partial 22.9 Thromboplast Time Sodium Level 147 Potassium Level 2.9 Chloride Level 99 Carbon Dioxide Level 26.7 Anion Gap 21 Blood Urea Nitrogen 45 Creatinine 7.32 Estimat Glomerular Filtration 8 Rate Random Glucose 120 Lactic Acid Level 1.8 Calcium Level 6.3 Protein Corrected Calcium 6.2 Total Bilirubin 0.2 Aspartate Amino Transf 27 (AST/SGOT) Alanine Aminotransferase 19 (ALT/SGPT) Alkaline Phosphatase 105 Ammonia 49 Total Creatine Kinase 598 Creatine Kinase MB 6.0 Creatine Kinase MB % 1.0 Troponin I 0.06 Total Protein 7.4 Albumin 3.7 Thyroid Stimulating Hormone 0.550 3rd Gen Acetaminophen Level LESS THAN 2.0 Ethyl Alcohol Level LESS THAN 3 Urine Color YELLOW Urine Turbidity HAZY Urine pH 5.5 Urine Specific [place] 1.023 Urine Protein 100 Urine Glucose (UA) TRACE Urine Ketones NEG Urine Occult Blood MOD Urine Nitrite NEG Urine Bilirubin NEG Urine Urobilinogen LESS THAN 2.0 Urine Leukocyte Esterase NEG Urine RBC 3 Urine WBC 15 Urine Squamous Epithelial 1 Cells Urine Amorphous Sediment RARE Urine Bacteria OCC Urine Hyaline Casts 69 Urine Mucus FEW Microscopic Urinalysis Comment CATH-CULTURE IND Urine Opiates Screen NEG Urine Barbiturates Screen NEG Urine Amphetamines Screen NEG Urine Benzodiazepines Screen NEG Urine Cocaine Screen NEG Urine Cannabinoids Screen POS Serum Osmolality 323 Salicylates Level 2.1 Blood Gas Puncture Site RT FEMORAL Blood Gas Patient Temperature 98.6 Blood Gas HCO3 21 Blood Gas Base Excess -3.4 Blood Gas Oxygen Saturation 92 Arterial Blood pH 7.41 Arterial Blood Partial 33 Pressure CO2 Arterial Blood Partial 77 Pressure O2 Arterial Blood Oxygen Content 15.9 Arterial Blood 0.7 Carboxyhemoglobin Arterial Blood Methemoglobin 0.6 Blood Gas Hemoglobin 12.2 Oxygen Delivery Device NASAL CANNULA Blood Gas Liter Flow 1 Test 08/18/16 08/19/16 08/19/16 08/19/16 21:15 00:06 04:03 10:00 Nasal Screen MRSA (PCR) MRSA NOT DETECTED Total Creatine Kinase 905 1539 Creatine Kinase MB 11.1 14.7 Creatine Kinase MB % 1.2 1.0 White Blood Count 22.6 Red Blood Count 3.52 Hemoglobin 12.3 Hematocrit 36.5 Mean Corpuscular Volume 103.7 Mean Corpuscular Hemoglobin 34.9 Mean Corpuscular Hemoglobin 33.6 Concent Red Cell Distribution Width 14.1 Platelet Count 375 Mean Platelet Volume 8.2 Neutrophils (%) (Auto) 89.2 Lymphocytes (%) (Auto) 5.1 Monocytes (%) (Auto) 5.6 Eosinophils (%) (Auto) 0.0 Basophils (%) (Auto) 0.1 Neutrophils # (Auto) 20.2 Lymphocytes # (Auto) 1.2 Monocytes # (Auto) 1.3 Eosinophils # (Auto) 0.0 Basophils # (Auto) 0.0 CBC Comment DIFF FINAL Differential Comment Sodium Level 152 Potassium Level 3.1 Chloride Level 111 Carbon Dioxide Level 24.1 Anion Gap 17 Blood Urea Nitrogen 46 Creatinine 5.39 Estimat Glomerular Filtration 11 Rate Random Glucose 79 Lactic Acid Level 1.0 Calcium Level 5.7 Protein Corrected Calcium 6.0 Phosphorus Level 4.9 Magnesium Level 1.7 Total Bilirubin 0.3 Aspartate Amino Transf 54 (AST/SGOT) Alanine Aminotransferase 21 (ALT/SGPT) Alkaline Phosphatase 87 Ammonia 30 Total Protein 6.3 Albumin 3.1 Blood Gas Puncture Site RT RADIAL Blood Gas Patient Temperature 98.6 Blood Gas HCO3 19 Blood Gas Base Excess -6.1 Blood Gas Oxygen Saturation 96 Arterial Blood pH 7.30 Arterial Blood Partial 41 Pressure CO2 Arterial Blood Partial 134 Pressure O2 Arterial Blood Oxygen Content 16.9 Arterial Blood 0.9 Carboxyhemoglobin Arterial Blood Methemoglobin 1.3 Blood Gas Hemoglobin 12.4 Oxygen Delivery Device NASAL CANNULA Blood Gas Liter Flow 2 Date/Time Procedure Status Source Growth 08/18/16 16:55 Urine Culture Worksheet Urine Catheterized Urine Pending 08/18/16 16:55 Aerobic Blood Culture Received Blood Peripheral Pending 08/18/16 16:55 Anaerobic Blood Culture Received Blood Peripheral Pending Result Diagram: 08/19/16 0403 08/19/16 0403 Imaging Last Impressions Chest X-Ray 08/18/16 8739 Signed Impressions: Service Date/Time: Thursday, August 18, 2016 17:12 - CONCLUSION: No acute cardiopulmonary disease. Mihir Palmer MD Assessment and Plan Problem List: (1) JOE (acute kidney injury) Plan: By history, likely related to volume depletion and environmental exposure. Uncertain if any illicits substances were ingested. Apparently had brisk UOP once Saez was inserted, so a potential for bladder outlet obstruction is also in differential. Continue on IVF. Change to 1/2NS given hypernatremia Check renal US Medications should be adjusted for the patient's renal decline. Avoid nephrotoxic agents such as iodinated contrast and NSAIDs. Avoid gadolinium when eGFR <30. (2) Hypertension Plan: Continue on current regimen (3) Hypokalemia Plan: Repletion ordered (4) Hypocalcemia Plan: Repletion ordered. Check Mg level (5) Leukocytosis Mayda Millard Aug 19, 2016 11:11
[2016-08-19] MEDS: CEFEPIME INJ 2,000 MG in SODIUM CHLORIDE 0.9% INJ 100 ML IV SCH (11:34)
[2016-08-19] MEDS: SODIUM BICARBONATE 8.4% INJ 150 MEQ in DEXTROSE 5% IN WATE 1000ML INJ 850 ML IV SCH ×4 (11:34→22:15)
[2016-08-19] MEDS: MAGNESIUM SULFATE 1 GM PREMIX 100 ML IV SCH ×2 (11:35→14:26)
--- NOTE | 2016-08-19 12:20 | RADRPT ---
EXAM DATE/TIME: 08/19/2016 11:41 [facility] COMPARISON: No previous studies available for comparison. INDICATIONS : Increased BUN/Creatinine. MEDICAL HISTORY : Gastroesophageal reflux disease. Hypertension. Back fracture. Ulcer. SURGICAL HISTORY : Tonsillectomy. ENCOUNTER: Initial ACUITY: 1 day PAIN SCORE: Nonresponsive. LOCATION: Bilateral flank MEASUREMENTS: RIGHT KIDNEY: 10.5 x 4.9 x 5.8 cm LEFT KIDNEY: 12.7 x 5.0 x 5.7 cm FINDINGS: RIGHT KIDNEY: Diffuse mild increase in renal cortical echogenicity and mild cortical thinning. No evidence of stone , mass or hydronephrosis. LEFT KIDNEY: Diffuse mild increase in renal cortical echogenicity and mild cortical thinning. No evidence of stone , mass or hydronephrosis BLADDER: Decompressed with Saez catheter CONCLUSION: Increased renal cortical echogenicity. No hydronephrosis Ed Monaco MD on August 19, 2016 at 12:16 Board Certified Radiologist. This report was verified electronically.
[2016-08-19 13:53] LABS: CKMB 10.7 NG/ML (0.5-3.6)
[2016-08-19] MEDS ORDERED: MAGNESIUM SULFATE 1 GM PREMIX 100 ML ONE (14:24)
[2016-08-19] MEDS: MULTIVITAMIN INJ 10 ML, FOLIC ACID INJ 1 MG in SODIUM CHLORID 0.9% 500 ML INJ 500 ML IV SCH (14:25)
[2016-08-19] MEDS: THIAMINE INJ 100 MG in SODIUM CHLORIDE 0.9% INJ 100 ML IV SCH (14:25)
[2016-08-19] MEDS: SODIUM CHLOR 0.45% 1000 ML INJ 1,000 ML IV SCH ×2 (14:30→19:48)
[2016-08-19 14:41] LABS: BLOOD GAS BASE EXCESS -2.8 mmol/L (-2-2); BLOOD GAS CARBOXYHEMOGLOBIN 1.1 % (0-4); BLOOD GAS HCO3 22 mmol/L (22-26); BLOOD GAS METHEMOGLOBIN 1.3 % (0-2); BLOOD GAS O2 HGB SATURATION 96 % (90-100); BLOOD GAS OXYGEN CONTENT 16.3 Vol % (12.0-20.0); BLOOD GAS PCO2 41 mmHg (38-42); BLOOD GAS PO2 120 mmHg (61-120); TEMP CORR TO 98.6
[2016-08-19 14:42] LABS: CRITICAL VALUE NO; DRAW SITE RT RADIAL; LITER FLOW 2 L/M; NUMBER OF ARTERIAL PUNCTURES 1; OXYGEN DEVICE NASAL CANNULA; STAT NO; ULNAR PULSE PRESENT
[2016-08-19 18:08] LABS: CKMB 9.2 NG/ML (0.5-3.6)
[2016-08-19 23:19] LABS: MAGNESIUM 2.6 MG/DL (1.5-2.5)
[2016-08-19 23:34] LABS: CKMB 10.3 NG/ML (0.5-3.6)
[2016-08-20] VITALS (27 sets, daily range): BP systolic 133–199; BP diastolic 72–132; PULSE 59–120; RESP 14–59; TEMP 97.6–98.3; O2SAT 88–100
[2016-08-20] MEDS: LORazepam 2 MG/ML VIAL IV PUSH PRN ×4 (00:18→08:39)
[2016-08-20] MEDS: SODIUM CHLOR 0.45% 1000 ML INJ 1,000 ML IV SCH ×2 (00:35→08:39)
[2016-08-20] MEDS ORDERED: FLUMAZENIL 0.5 MG/5 ML VIAL IV PUSH PRN (00:45)
[2016-08-20] MEDS: CHLORHEXIDINE GLUCONATE 2 % 1 PACK (2 CLOTHS) TOP SCH ×2 (04:00→22:21)
[2016-08-20 05:11] LABS: BLOOD GAS BASE EXCESS 2.5 mmol/L (-2-2); BLOOD GAS CARBOXYHEMOGLOBIN 1.4 % (0-4); BLOOD GAS HCO3 26 mmol/L (22-26); BLOOD GAS METHEMOGLOBIN 1.1 % (0-2); BLOOD GAS O2 HGB SATURATION 94 % (90-100); BLOOD GAS OXYGEN CONTENT 17.7 Vol % (12.0-20.0); BLOOD GAS PCO2 35 mmHg (38-42); BLOOD GAS PO2 90 mmHg (61-120); BLOOD GAS TOTAL HGB 13.3 G/DL (12.0-16.0); CRITICAL VALUE NO; LITER FLOW 2 L/M; OXYGEN DEVICE NASAL CANNULA; TEMP CORR TO 98.6
[2016-08-20 05:12] LABS: DRAW SITE RT RADIAL; NUMBER OF ARTERIAL PUNCTURES 1; STAT NO; ULNAR PULSE PRESENT
[2016-08-20] MEDS: hydrALAZINE HCL 20 MG/ML VIAL IV PUSH PRN ×2 (05:52→15:56)
[2016-08-20 07:07] LABS: BASOPHIL # 0.1 TH/MM3 (0-0.2); BASOPHIL % 0.5 % (0.0-2.0); EOSINOPHIL % 0.1 % (0.0-4.0); HEMATOCRIT 42.2 % (39.0-51.0); HEMO FLAGS DIFF FINAL; LYMPH % 9.6 % (9.0-44.0); LYMPHOCYTE # 1.6 TH/MM3 (1.0-4.8); MEAN CORPUSCULAR HEMOGLOBIN 35.4 PG (27.0-34.0); MONO % 5.3 % (0.0-8.0); NEUT % 84.5 % (16.0-70.0); PLATELET COUNT 339 TH/MM3 (150-450); RED BLOOD COUNT 4.06 MIL/MM3 (4.50-5.90); RED CELL DISTRIBUTION WIDTH 14.5 % (11.6-17.2); WHITE BLOOD COUNT 16.6 TH/MM3 (4.0-11.0)
[2016-08-20 07:52] LABS: BICARBONATE 28.7 MEQ/L (21.0-32.0); MAGNESIUM 2.5 MG/DL (1.5-2.5)
[2016-08-20 08:11] LABS: POTASSIUM 2.7 MEQ/L (3.5-5.1)
[2016-08-20 08:12] LABS: CALCIUM-PROTEIN CORRECTED 7.3 MG/DL (8.5-10.1)
--- NOTE | 2016-08-20 08:35 | EKG ---
Date Performed: 08/18/2016 Time Performed: 16:53:35 PTAGE: 56 years EKG: SINUS TACHYCARDIA VOLTAGE CRITERIA FOR LVH NONSPECIFIC ST & T-WAVE ABNORMALITY ABNORMAL ECG INTERPRETATION BASED ON A DEFAULT AGE OF 40 YEARS PREVIOUS TRACING : 06/21/2016 17.35 DOCTOR: Celeste Perdomo Interpretating Date/Time 08/20/2016 08:34:08
[2016-08-20] MEDS: HEPARIN SODIUM - SQ 10,000 UNITS/ML VIAL SQ SCH ×2 (08:38→22:20)
[2016-08-20] MEDS: PANTOPRAZOLE SODIUM 40 MG VIAL IV SCH (08:38)
[2016-08-20] MEDS: DOCUSATE SODIUM 50 MG/SENNA 8.6 MG TAB PO SCH ×2 (08:38→22:20)
[2016-08-20] MEDS ORDERED: VANCOMYCIN 1,000 MG/NS 250 ML IV ONE ×2 (10:00)
[2016-08-20] MEDS ORDERED: METOPROLOL TARTRATE 5 MG/5 ML VIAL IV PUSH ONE (10:30)
[2016-08-20] MEDS ORDERED: POTASSIUM CHLOR 20 MEQ PREMIX 100 ML IV ONE (10:30)
[2016-08-20] MEDS: CEFEPIME INJ 2,000 MG in SODIUM CHLORIDE 0.9% INJ 100 ML IV SCH (10:54)
[2016-08-20] MEDS ORDERED: POTASSIUM CHLORIDE 25 MEQ EFFERVESCENT TAB PO ONE (11:15)
--- NOTE | 2016-08-20 11:30 | HHI.NPPN ---
Subjective History of Present Illness The patient is a 56 yo [place] male who was brought to this facility yesterday evening via [facility]. He is sedated at this time as he was conbative this morning, but according to records, has dug a hole in his girlfriend's backyard up to his neck and remained there for 3 days before she called [facility]. Was in the ED on with complaints of "fractured spine" and "almost ready to commit suicide". Uncertain if any chemicals ingested. 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 Interval History Pt more aware, but confused. Review of Systems General General Remarks Unable to obtain 2/2 to clinical condition Objective Data Data 08/19/16 08/20/16 19:00 07:00 Intake Total 1959 ml 3401 ml Output Total 1000 ml 2325 ml Balance 959 ml 1076 ml Intake IV Total 1959 ml 3401 ml Output Urine Total 1000 ml 2325 ml # Bowel Movements 1 Vital Signs Date Time Temp Pulse Resp B/P Pulse Ox O2 Delivery O2 Flow Rate FiO2 08/20/16 08:15 100 Nasal Cannula 2.00 08/20/16 08:00 103 08/20/16 08:00 97.6 103 28 143/72 100 08/20/16 06:01 103 08/20/16 06:01 103 33 199/98 93 08/20/16 06:00 100 26 88 08/20/16 06:00 100 08/20/16 05:51 92 08/20/16 05:51 92 27 190/132 97 08/20/16 05:01 99 08/20/16 05:01 99 35 192/99 99 08/20/16 05:00 96 33 98 08/20/16 05:00 96 08/20/16 04:00 80 08/20/16 04:00 98.3 80 15 167/97 100 08/20/16 03:00 79 15 152/82 100 08/20/16 03:00 79 08/20/16 02:00 85 08/20/16 02:00 85 14 150/88 100 08/20/16 01:12 95 08/20/16 01:12 95 17 137/73 100 08/20/16 01:00 120 52 99 08/20/16 01:00 120 08/20/16 00:02 118 08/20/16 00:02 118 47 142/115 97 08/20/16 00:00 112 08/20/16 00:00 98.1 112 59 98 08/19/16 23:06 113 08/19/16 23:06 113 25 158/89 94 08/19/16 23:01 122 08/19/16 23:01 122 34 224/87 91 08/19/16 23:00 122 08/19/16 23:00 122 40 89 08/19/16 22:39 113 08/19/16 22:39 113 35 213/79 94 08/19/16 22:33 116 08/19/16 22:33 116 35 178/106 92 08/19/16 22:04 84 15 190/86 98 08/19/16 22:04 84 08/19/16 22:00 92 08/19/16 22:00 92 15 203/96 97 08/19/16 21:28 94 Nasal Cannula 2.00 08/19/16 21:00 88 14 166/76 96 08/19/16 21:00 88 08/19/16 20:00 95 08/19/16 20:00 98.4 95 15 162/77 98 08/19/16 19:26 118 08/19/16 19:26 118 39 115/90 91 08/19/16 19:00 99 31 96 08/19/16 19:00 99 08/19/16 18:01 114 24 148/96 86 08/19/16 18:00 120 08/19/16 18:00 110 37 89 08/19/16 17:00 84 15 132/80 100 08/19/16 16:00 98.3 82 22 132/80 98 08/19/16 16:00 81 08/19/16 14:00 89 08/19/16 12:00 98.0 91 24 120/77 99 08/19/16 12:00 109 -: 08/20/16 0629 08/20/16 0629 Imaging Last Impressions Renal Ultrasound 08/19/16 0000 Signed Impressions: Service Date/Time: Friday, August 19, 2016 11:41 - CONCLUSION: Increased renal cortical echogenicity. No hydronephrosis Ed Monaco MD Head CT 08/19/16 0000 Signed Impressions: Service Date/Time: Friday, August 19, 2016 10:48 - CONCLUSION: Motion degraded exam grossly negative for acute process. Ed Monaco MD Chest X-Ray 08/18/16 1649 Signed Impressions: Service Date/Time: Thursday, August 18, 2016 17:12 - CONCLUSION: No acute cardiopulmonary disease. Mihir Palmer MD Medication Review Current Medications Medications (Trade) Dose Ordered Sig/Florentin Route Start Time Stop Time Status Last Admin (NS Flush) 2 ml UNSCH PRN IV FLUSH 08/18/16 17:00 (Tylenol) 650 mg Q6H PRN PO 08/18/16 19:30 (Protonix Inj) 40 mg DAILY IV 08/18/16 19:30 08/20/16 08:38 (Zofran Inj) 4 mg Q6H PRN IV 08/18/16 19:30 (Heparin Inj) 5,000 units Q12H SQ 08/18/16 20:00 08/20/16 08:38 Miscellaneous Information 1 Q361D XX 08/18/16 19:30 (Chlorhexidine 2% Cloth) 3 pack Taper DAILY@04 TOP 08/19/16 04:00 08/15/17 03:59 08/20/16 04:00 (Chlorhexidine 2% Cloth) 3 pack UNSCH PRN TOP 08/18/16 19:30 (Sanaz-Colace) 1 tab BID PO 08/18/16 21:00 08/20/16 08:38 (Milk Of Magnesia Liq) 30 ml Q12H PRN PO 08/18/16 19:30 (Senokot) 17.2 mg Q12H PRN PO 08/18/16 19:30 (Dulcolax Supp) 10 mg DAILY PRN RECTAL 08/18/16 19:30 (Lactulose Liq) 30 ml DAILY PRN PO 08/18/16 19:30 (Apresoline Inj) 10 mg Q2H PRN IV PUSH 08/18/16 19:30 08/20/16 05:52 (Apresoline) 25 mg Q8HR PO 08/18/16 22:00 (D50w (Vial) Inj) 50 ml UNSCH PRN IV 08/19/16 10:15 Glucagon 1 mg 1 mg UNSCH PRN OTHER 08/19/16 10:15 Multivitamins 10 ml/Folic Acid 1 mg/Sodium Chloride 510.2 ml @ 125 mls/hr Q24H IV 08/19/16 11:00 08/24/16 10:59 08/19/16 14:25 Thiamine HCl 100 mg/Sodium Chloride 101 ml @ 100 mls/hr Q24H IV 08/19/16 11:00 08/22/16 10:59 08/19/16 14:25 Pharmacy Profile Note 0 ml @ 0 mls/hr UNSCH OTHER 08/19/16 10:15 Cefepime HCl 2000 mg/Sodium Chloride 100 ml @ 200 mls/hr Q24H IV 08/19/16 11:00 08/20/16 10:54 Sodium Bicarbonate 150 meq/Dextrose 1,000 ml @ 75 mls/hr [id number] IV 08/19/16 10:30 08/19/16 22:15 (1/2 NS 1000 ml Inj) 1,000 ml @ 150 mls/hr Q6H40M IV 08/19/16 11:15 08/20/16 08:39 (Romazicon Inj) 0.2 mg Q1M PRN IV PUSH 08/20/16 00:45 (Ativan) 1 mg Q4H PRN PO 08/20/16 00:45 (Ativan Inj) 1 mg Q4H PRN IV PUSH 08/20/16 00:45 08/20/16 05:23 (Ativan) 2 mg Q2H PRN PO 08/20/16 00:45 (Ativan Inj) 2 mg Q2H PRN IV PUSH 08/20/16 00:45 (Ativan Inj) 2 mg Q1H PRN IV PUSH 08/20/16 00:45 08/20/16 08:39 Lorazepam 2 mg 2 mg Q15M PRN IV PUSH 08/20/16 00:45 08/20/16 00:52 (KCl 20 Meq Premix Inj) 100 ml @ 50 mls/hr ONCE ONCE IV 08/20/16 10:30 08/20/16 12:29 08/20/16 10:53 Physical Exam General Appearance: Anxious, Malnourished Neck Neck Exam: Neck Supple, Trachea Midline Pulmonary Resp Exam: Clear Bilaterally, Breath Sounds Equal Cardiology CV Exam: Regular, Normal Sinus Rhythm Gastrointestinal/Abdomen GI Exam: Soft, Non-Tender Extremeties Extremities Exam: No Edema Assessment/Plan Problem List: (1) JOE (acute kidney injury) Plan: By history, likely related to volume depletion and environmental exposure. Uncertain if any illicits substances were ingested. Apparently had brisk UOP once Saez was inserted, so a potential for bladder outlet obstruction is also in differential. Adjust IVF---D/C 1/2NS (as BP elevated and hypernatremia persisting), continue on D5W, D/C bicarb additive Medications should be adjusted for the patient's renal decline. Avoid nephrotoxic agents such as iodinated contrast and NSAIDs. Avoid gadolinium when eGFR <30. (2) Hypertension Plan: Adjust medications as very elevated Amlodipine 5mg QD. Continue on Hydralazine (3) Hypokalemia Plan: Repletion ordered (4) Hypocalcemia Plan: Improved po Oscal (5) Hypophosphatemia Plan: Monitor. Replete if needed. (6) Leukocytosis Mayda Millard Aug 20, 2016 11:30
[2016-08-20] MEDS: hydrALAZINE HCL 25 MG TAB PO SCH ×2 (12:05→22:21)
[2016-08-20] MEDS: MULTIVITAMIN INJ 10 ML, FOLIC ACID INJ 1 MG in SODIUM CHLORID 0.9% 500 ML INJ 500 ML IV SCH (12:05)
[2016-08-20] MEDS: THIAMINE INJ 100 MG in SODIUM CHLORIDE 0.9% INJ 100 ML IV SCH (12:05)
[2016-08-20] MEDS ORDERED: OLANZapine IM 10 MG VIAL IM PRN (13:30)
--- NOTE | 2016-08-20 13:40 | PD.CONS ---
Provisional Diagnosis Admission Date Aug 18, 2016 at 18:56 [place] I. Alcohol induced mood disorder, alcohol and marijuana use disorder [place] II. Deferred [place] III. No significant medical history History of Present Illness Service Psychiatry Consult Requested By Primary Care Physician Unknown HPI The patient is a 56 y/o man, domiciled alone, , he has 1 kid, unemployed, without any previous psychiatric history, no previous psychiatric hospitalizations, no previous suicidal attempts, alcohol use disorder, cannabis use disorder, no significant medical history, who has been hiding in a hole in his girlfriends back yard for 2-3 days and arrives to ED by EMS with severe kidney failure and dehydration. He is encephalopathic and disheveled. The rapidity of renal deterioration from his baseline 4 days ago implicates a possible nephrotoxin. We will check his osmolality and pursue the possibility of ingested poisons. Leave K uncorrected for now until we know he makes urine. Lees Act back in effect. Recent admission 4 days ago involved ETOH binging and suicidal ideation. He was cleared by psych prior to discharge. Patient is restrained in 4 point, poorly cooperative, no providing significant information for the psychiatric assessment, combative, no making much sense. He has visible fluctuation of consciousness, attention deficit, he is disoriented, for delirium. He is verbally hostile, his ex- is at bedside and she provides a useful collateral information. Review of Systems ROS Limitations: Unresponsive, Uncooperative Past Family Social History Coded Allergies: No Known Allergies (Verified , 08/18/16) Active Scripts Ibuprofen 400 Mg [id number] Mg PO Q8H PRN (PAIN SCALE 1 TO 4) #20 TAB Ref 0 Prov:Selena Em DO 07/31/16 Reported Medications Lisinopril 5 Mg Tab5 Mg PO DAILY #30 TAB Ref 0 07/30/16 Gabapentin 400 Mg [id number] Cap PO TID #30 CAP Ref 0 07/30/16 Current Medications Medications (Trade) Dose Ordered Sig/Florentin Route Start Time Stop Time Status Last Admin (NS Flush) 2 ml UNSCH PRN IV FLUSH 08/18/16 17:00 (Tylenol) 650 mg Q6H PRN PO 08/18/16 19:30 (Protonix Inj) 40 mg DAILY IV 08/18/16 19:30 08/20/16 08:38 (Zofran Inj) 4 mg Q6H PRN IV 08/18/16 19:30 (Heparin Inj) 5,000 units Q12H SQ 08/18/16 20:00 08/20/16 08:38 Miscellaneous Information 1 Q361D XX 08/18/16 19:30 (Chlorhexidine 2% Cloth) 3 pack Taper DAILY@04 TOP 08/19/16 04:00 08/15/17 03:59 08/20/16 04:00 (Chlorhexidine 2% Cloth) 3 pack UNSCH PRN TOP 08/18/16 19:30 (Sanaz-Colace) 1 tab BID PO 08/18/16 21:00 08/20/16 08:38 (Milk Of Magnesia Liq) 30 ml Q12H PRN PO 08/18/16 19:30 (Senokot) 17.2 mg Q12H PRN PO 08/18/16 19:30 (Dulcolax Supp) 10 mg DAILY PRN RECTAL 08/18/16 19:30 (Lactulose Liq) 30 ml DAILY PRN PO 08/18/16 19:30 (Apresoline) 25 mg Q8HR PO 08/18/16 22:00 08/20/16 12:05 (D50w (Vial) Inj) 50 ml UNSCH PRN IV 08/19/16 10:15 Glucagon 1 mg 1 mg UNSCH PRN OTHER 08/19/16 10:15 Multivitamins 10 ml/Folic Acid 1 mg/Sodium Chloride 510.2 ml @ 125 mls/hr Q24H IV 08/19/16 11:00 08/24/16 10:59 08/20/16 12:05 Thiamine HCl 100 mg/Sodium Chloride 101 ml @ 100 mls/hr Q24H IV 08/19/16 11:00 08/22/16 10:59 08/20/16 12:05 Pharmacy Profile Note 0 ml @ 0 mls/hr UNSCH OTHER 08/19/16 10:15 (Maxipime Inj/NS Inj) 100 ml @ 200 mls/hr Q24H IV 08/19/16 11:00 08/20/16 10:54 (Romazicon Inj) 0.2 mg Q1M PRN IV PUSH 08/20/16 00:45 (Ativan) 1 mg Q4H PRN PO 08/20/16 00:45 (Ativan Inj) 1 mg Q4H PRN IV PUSH 08/20/16 00:45 08/20/16 05:23 (Ativan) 2 mg Q2H PRN PO 08/20/16 00:45 (Ativan Inj) 2 mg Q2H PRN IV PUSH 08/20/16 00:45 (Ativan Inj) 2 mg Q1H PRN IV PUSH 08/20/16 00:45 08/20/16 08:39 Lorazepam 2 mg 2 mg Q15M PRN IV PUSH 08/20/16 00:45 08/20/16 00:52 (D5W 1000 ml Inj) 850 ml @ 125 mls/hr Q6H48M IV 08/21/16 12:30 (Oscal) 500 mg DAILY PO 08/21/16 09:00 (Norvasc) 5 mg DAILY PO 08/21/16 09:00 (Apresoline Inj) 20 mg Q6H PRN IV PUSH 08/20/16 12:00 (Librium) 10 mg TID PO 08/20/16 13:00 (ZyPREXA) 5 mg Q12HR PO 08/20/16 13:30 UNV (ZyPREXA INJ) 10 mg Q12H PRN IM 08/20/16 13:30 UNV Family History No known family psychiatric history Social History Patient was born and raised in [place], he lives in [place] alone, is unemployed, supported by making some art work, , he has one adult kids, his highest level of education is 12th grade Patient's Strengths (min. 2) Under observation Physical Exam Vital Signs Vital Signs Date Time Temp Pulse Resp B/P Pulse Ox O2 Delivery O2 Flow Rate FiO2 08/20/16 08:15 100 Nasal Cannula 2.00 08/20/16 08:00 103 08/20/16 08:00 97.6 28 143/72 I/O 08/19/16 08/19/16 08/20/16 08:00 16:00 00:00 Intake Total 831 ml 1959 ml 1862 ml Output Total 250 ml 1000 ml 1000 ml Balance 581 ml 959 ml 862 ml Lab Results Laboratory Tests Test 08/18/16 08/18/16 08/18/16 16:50 16:55 17:20 White Blood Count 20.0 Red Blood Count 3.87 Hemoglobin 13.5 Hematocrit 39.5 Mean Corpuscular Volume 102.1 Mean Corpuscular Hemoglobin 35.0 Mean Corpuscular Hemoglobin 34.3 Concent Red Cell Distribution Width 14.1 Platelet Count 452 Mean Platelet Volume 8.4 Neutrophils (%) (Auto) 89.5 Lymphocytes (%) (Auto) 3.1 Monocytes (%) (Auto) 7.2 Eosinophils (%) (Auto) 0.0 Basophils (%) (Auto) 0.2 Neutrophils # (Auto) 17.9 Lymphocytes # (Auto) 0.6 Monocytes # (Auto) 1.4 Eosinophils # (Auto) 0.0 Basophils # (Auto) 0.0 CBC Comment DIFF FINAL Differential Comment Prothrombin Time 11.3 Prothromb Time International 1.0 Ratio Activated Partial 22.9 Thromboplast Time Sodium Level 147 Potassium Level 2.9 Chloride Level 99 Carbon Dioxide Level 26.7 Anion Gap 21 Blood Urea Nitrogen 45 Creatinine 7.32 Estimat Glomerular Filtration 8 Rate Random Glucose 120 Lactic Acid Level 1.8 Calcium Level 6.3 Protein Corrected Calcium 6.2 Total Bilirubin 0.2 Aspartate Amino Transf 27 (AST/SGOT) Alanine Aminotransferase 19 (ALT/SGPT) Alkaline Phosphatase 105 Ammonia 49 Total Creatine Kinase 598 Creatine Kinase MB 6.0 Creatine Kinase MB % 1.0 Troponin I 0.06 Total Protein 7.4 Albumin 3.7 Thyroid Stimulating Hormone 0.550 3rd Gen Acetaminophen Level LESS THAN 2.0 Ethyl Alcohol Level LESS THAN 3 Urine Color YELLOW Urine Turbidity HAZY Urine pH 5.5 Urine Specific [place] 1.023 Urine Protein 100 Urine Glucose (UA) TRACE Urine Ketones NEG Urine Occult Blood MOD Urine Nitrite NEG Urine Bilirubin NEG Urine Urobilinogen LESS THAN 2.0 Urine Leukocyte Esterase NEG Urine RBC 3 Urine WBC 15 Urine Squamous Epithelial 1 Cells Urine Amorphous Sediment RARE Urine Bacteria OCC Urine Hyaline Casts 69 Urine Mucus FEW Microscopic Urinalysis Comment CATH-CULTURE IND Urine Opiates Screen NEG Urine Barbiturates Screen NEG Urine Amphetamines Screen NEG Urine Benzodiazepines Screen NEG Urine Cocaine Screen NEG Urine Cannabinoids Screen POS Salicylates Level 2.1 Date/Time Procedure Status Source Growth 08/18/16 16:55 Urine Culture Worksheet Urine Catheterized Urine Pending 08/18/16 16:55 Aerobic Blood Culture Received Blood Peripheral Pending 08/18/16 16:55 Anaerobic Blood Culture Received Blood Peripheral Pending Result Diagram: 08/18/16 1650 08/18/16 1650 Mental Status Examination Limited due to lack of cooperation, disorganization, delirium Appearance Patient is disheveled, with poor hygiene, he looks much older than his stated age, acutely/chronically ill, non-cooperative, agitated, restrained in 4 point Speech: Hesitant, Incoherent Orientation: Person Memory: Impaired (describe) Thought Process: Loose Association Thought Content: Bizarre thinking Hallucination Type: None Suicidal Ideation: No Homicidal Ideation: No Judgment: Poor Affect: Irritable Mood: Irritable Motor Activity: Abnormal gait-specify Assessment & Plan Problem List: (1) Alcohol abuse with alcohol-induced mood disorder Assessment & Plan: Psychiatric assessment could not be performed and finish due to lack of cooperation, altered mental status, patient is not providing any meaningful information at this moment. He is disorganized, agitated, restrained in 4 points, with visible fluctuation of consciousness, attention deficit, disoriented in time and place. Patient is most probably in delirium, potential alcohol withdrawal as an etiology, but also multiple underlying acute medical conditions. Continue [facility] protocol. Backer act will remain in place. Olanzapine 10 mg IM every 8 hours for agitation and aggressive behavior, olanzapine 5 mg by mouth twice a day for behavior control and disorganization. We'll continue follow-up. ICD Code: F10.14 Assessment & Plan Estimated LOS: Reed Hui MD Aug 20, 2016 13:40
[2016-08-20] MEDS: OLANZapine 5 MG TAB PO SCH ×2 (14:58→22:21)
[2016-08-20] MEDS ORDERED: PILL SPLITTER OTHER PRN (15:15)
--- NOTE | 2016-08-20 15:36 | HHI.CCPN ---
Subjective Remarks/Hospital Course 56 y/o man has been hiding in a hole in his girlfriends back yard for 2-3 days and arrives to ED by EMS with severe kidney failure and dehydration. He is encephalopathic and disheveled. The rapidity of renal deterioration from his baseline 4 days ago implicates a possible nephrotoxin. We will check his osmolality and pursue the possibility of ingested poisons. Leave K uncorrected for now until we know he makes urine. Le[place] Act back in effect. Recent admission 4 days ago involved ETOH binging and suicidal ideation. He was cleared by psych prior to discharge. Subjective: 08/19:Tmax 101.5. Patient extremely lethargic this a.m., not responding to commands. The patient received overnight approximately [address] scan of brain ordered this a.m., results pending. Creatinine kinase continues to be elevated, patient's IV fluids changed to lactated Ringer's at continuous rate 150cc/hour. Urinary retention was noted this a.m. with condom catheter, Saez placed, immediate output 600 cc. Patient continues to have electrolyte imbalances currently being corrected. 08/20: Patient appears more confused today. Appears to be in withdrawal. Psychiatry into evaluate patient, olanzapine ordered. Librium scheduled doses 3 times a day, metoprolol ordered as well as hydralazine when necessary for hypertension. The patient continues in 4 point restraints, and is under Lees act. Objective Vital Signs Date Time Temp Pulse Resp B/P Pulse Ox O2 Delivery O2 Flow Rate FiO2 08/20/16 08:15 100 Nasal Cannula 2.00 08/20/16 08:00 103 08/20/16 08:00 97.6 28 143/72 Intake and Output 08/19/16 08/19/16 08/20/16 08:00 16:00 00:00 Intake Total 831 ml 1959 ml 1862 ml Output Total 250 ml 1000 ml 1000 ml Balance 581 ml 959 ml 862 ml Result Diagram: 08/20/16 0629 08/20/16 0629 Other Results Microbiology Date/Time Procedure Status Source Growth 08/18/16 16:55 Urine Culture - Final Complete Urine Catheterized Urine NO GROWTH IN 48 HOURS. Laboratory Tests Test 08/20/16 04:59 Blood Gas Puncture Site RT RADIAL Blood Gas Patient Temperature 98.6 Blood Gas HCO3 26 mmol/L (22-26) Blood Gas Base Excess 2.5 mmol/L (-2-2) Blood Gas Oxygen Saturation 94 % (90-100) Arterial Blood pH 7.49 (7.380-7.420) Arterial Blood Partial 35 mmHg (38-42) Pressure CO2 Arterial Blood Partial 90 mmHg Pressure O2 (61-120) Arterial Blood Oxygen Content 17.7 Vol % (12.0-20.0) Arterial Blood 1.4 % (0-4) Carboxyhemoglobin Arterial Blood Methemoglobin 1.1 % (0-2) Blood Gas Hemoglobin 13.3 G/DL (12.0-16.0) Oxygen Delivery Device NASAL CANNULA Blood Gas Liter Flow 2 L/M Objective Remarks GENERAL: Malnourished, male with multiple superficial bruises/ abrasions upper and lower extremities talking inappropriately, delirious SKIN: Warm and dry. Multiple abrasions noted HEAD: Atraumatic. Normocephalic. EYES: Pupils equal and round, currently miosis noted bilateral No scleral icterus. No injection or drainage. ENT: No nasal bleeding or discharge. Mucous membranes pink and moist. NECK: Trachea midline. No JVD. CARDIOVASCULAR: Normal rate, regular rhythm. RESPIRATORY: No accessory muscle use. Clear to auscultation. Breath sounds equal bilaterally. GASTROINTESTINAL: Abdomen soft, non-tender, nondistended. No guarding. MUSCULOSKELETAL: Extremities without clubbing, cyanosis, or edema. No obvious deformities. NEUROLOGICAL: Currently in withdrawal moving extremities 4 nonpurposefully, 4point restraints for patient safety Urinary Catheter: Yes Saez insert reason: Measure Accurate Output Date of Insertion: Aug 19, 2016 A/P Assessment and Plan Assessment: 1. Metabolic encephalopathy. 2. JOE. 3. Dehydration, severe. 4. Rhabdomyolysis. 5. Suicidal ideation. 6. Hypocalcemia 7. Hypomagnesemia 8. Leukocytosis 9. EtOH abuse Plan: Plan by systems: Neurologic: -Neurochecks per ICU protocol -CIWA protocol -Librium TID -Psychiatry following-Dr. Nils Da Silva -Olanzapine per psychiatry -Restraints 4 as needed -Monitor for DTs- seizure precautions -Continue thiamine and folate daily Respiratory: -Obtain O2 sat greater than 92% -Obtain ABG, rule out CO2 narcosis -O2 via nasal cannula -Obtain head of bed 30 Cardiovascular: -Maintain map greater than 65 mmHg -Patient has history of hypertension- hydralazine every 6 hours PRN Renal: -Insert Saez catheter -Creatinine kinase elevated at 1539, continue to monitor serial CK levels -- Strict I/Os FEN/GI: -Replete electrolytes - D51/2 NS at 75/hr -NPO except meds -Velarde IV multivitamins, thiamine and folate Heme/ID: - Begin empiric antibiotics cefepime and vancomycin will de-escalate -Blood urine culture pending Endocrine: Glucose monitoring per ICU protocol -- SSI Prophylaxis: GI Prophylaxis Protonix DVT Prophylaxis -- SCDs Heparin twice a day Lines: Peripheral lines, central line if indicated Dispo: Discussed with ONLINE ADVERTISING MANAGER at bedside. Level 3, plan transfer to [facility] Physician Katherine Thurman MD Aug 20, 2016 15:36
[2016-08-20] MEDS: DEXT 5%-NACL 0.45% 1000 ML INJ 1,000 ML IV SCH (16:00)
[2016-08-20] MEDS: METOPROLOL TARTRATE 25 MG TAB PO SCH (22:20)
[2016-08-20] MEDS: LORazepam 1 MG TAB PO PRN (22:26)
[2016-08-21] VITALS (23 sets, daily range): BP systolic 115–174; BP diastolic 72–108; PULSE 79–115; RESP 15–27; TEMP 97.7–98.7; O2SAT 91–100
[2016-08-21] MEDS: hydrALAZINE HCL 20 MG/ML VIAL IV PUSH PRN ×2 (00:05→18:04)
[2016-08-21] MEDS: LORazepam 1 MG TAB PO PRN ×3 (02:41→10:12)
[2016-08-21] MEDS: DEXT 5%-NACL 0.45% 1000 ML INJ 1,000 ML IV SCH ×2 (02:42→22:08)
[2016-08-21] MEDS: METOPROLOL TARTRATE 25 MG TAB PO SCH ×3 (05:08→21:55)
[2016-08-21] MEDS: hydrALAZINE HCL 25 MG TAB PO SCH ×3 (05:08→21:55)
[2016-08-21 05:57] LABS: BICARBONATE 30.5 MEQ/L (21.0-32.0); MAGNESIUM 1.5 MG/DL (1.5-2.5); POTASSIUM 3.8 MEQ/L (3.5-5.1)
[2016-08-21 07:12] LABS: HEMATOCRIT 41.8 % (39.0-51.0); MEAN CELL VOLUME 103.4 FL (80.0-100.0); MEAN CORPUSCULAR HEMOGLOBIN 35.1 PG (27.0-34.0); PLATELET COUNT 212 TH/MM3 (150-450); RED BLOOD COUNT 4.04 MIL/MM3 (4.50-5.90); RED CELL DISTRIBUTION WIDTH 14.1 % (11.6-17.2); REVIEW FLAG FINAL; WHITE BLOOD COUNT 10.9 TH/MM3 (4.0-11.0)
[2016-08-21] MEDS: PANTOPRAZOLE SODIUM 40 MG VIAL IV SCH (08:14)
[2016-08-21] MEDS: DOCUSATE SODIUM 50 MG/SENNA 8.6 MG TAB PO SCH ×2 (08:14→21:55)
[2016-08-21] MEDS: amLODIPine BESYLATE 5 MG TAB PO SCH (08:14)
[2016-08-21] MEDS: CALCIUM CARBONATE 1.25 GM (CA 500 MG) TAB PO SCH (08:14)
[2016-08-21] MEDS: OLANZapine 5 MG TAB PO SCH ×2 (08:14→21:55)
[2016-08-21] MEDS: HEPARIN SODIUM - SQ 10,000 UNITS/ML VIAL SQ SCH ×2 (08:14→21:54)
[2016-08-21] MEDS: ACETAMINOPHEN 325 MG TAB PO PRN (10:00)
[2016-08-21] MEDS: VANCOMYCIN INJ 750 MG in SODIUM CHLOR 0.9% 250 ML INJ 250 ML IV SCH ×2 (10:08→23:27)
[2016-08-21] MEDS: MAGNESIUM SULFATE 1 GM PREMIX 100 ML IV SCH ×2 (10:12→11:26)
[2016-08-21] MEDS ORDERED: SODIUM PHOSPHATE INJ 21 MMOL in SODIUM CHLORIDE 0.9% INJ 150 ML IV ONE (10:15)
[2016-08-21] MEDS: THIAMINE INJ 100 MG in SODIUM CHLORIDE 0.9% INJ 100 ML IV SCH (11:26)
[2016-08-21] MEDS ORDERED: CEFEPIME INJ 2,000 MG in SODIUM CHLORIDE 0.9% INJ 100 ML IV SCH (12:00)
[2016-08-21] MEDS ORDERED: WATE IV SCH (12:30)
[2016-08-21] MEDS ORDERED: DEXTROSE 5% IV SCH (12:30)
[2016-08-21] MEDS: MULTIVITAMIN INJ 10 ML, FOLIC ACID INJ 1 MG in SODIUM CHLORID 0.9% 500 ML INJ 500 ML IV SCH (12:59)
--- NOTE | 2016-08-21 14:13 | HHI.PR ---
Subjective Remarks This is a pleasant 56 yo Male who came to ER with severe Kidney Injury and dehydration, with Encephalopathy, was thought Nephrotoxin due to his rapid deterioration, Hyperkalemia on admission, Lees act in effect, he was admitted to this facility due to EtOH binging and suicidal ideation, cleared for discharge by Psychiatry specialist Admitted to Intensive Care Unit. Hoisting Pile Driving Engineer Notes: 08/19:Tmax 101.5. Patient extremely lethargic this a.m., not responding to commands. The patient received overnight approximately [address] scan of brain ordered this a.m., results pending. Creatinine kinase continues to be elevated, patient's IV fluids changed to lactated Ringer's at continuous rate 150cc/hour. Urinary retention was noted this a.m. with condom catheter, Saez placed, immediate output 600 cc. Patient continues to have electrolyte imbalances currently being corrected. 08/20: Patient appears more confused today. Appears to be in withdrawal. Psychiatry into evaluate patient, olanzapine ordered. Librium scheduled doses 3 times a day, metoprolol ordered as well as hydralazine when necessary for hypertension. The patient continues in 4 point restraints, and is under Lees act. Hospitalist Notes: 08/21: Transferred to Hospitalist group management, continue ICU management due to Acute Kidney Injury, Encephalopathy, followed by Nephrology, Electrolyte derangement to continue Replacement. Leukocytosis on Empiric management. Improved Leukocytosis, blood cultures and urinary culture negative. as per Psychiatry specialist assessment was not performed, due to lack of cooperation, Objective Vital Signs Date Time Temp Pulse Resp B/P Pulse Ox O2 Delivery O2 Flow Rate FiO2 08/21/16 13:00 87 18 148/90 95 08/21/16 12:00 97.9 96 20 139/85 96 08/21/16 12:00 102 08/21/16 11:00 91 19 147/93 98 08/21/16 10:00 95 15 151/86 98 08/21/16 10:00 95 08/21/16 09:00 91 15 162/96 98 08/21/16 08:58 98 21 08/21/16 08:00 98.3 85 16 155/82 98 08/21/16 08:00 87 08/21/16 07:00 83 18 147/105 100 08/21/16 06:00 90 08/21/16 04:00 96 08/21/16 04:00 98.7 96 17 156/108 100 08/21/16 03:01 93 16 170/104 100 08/21/16 03:00 96 18 100 08/21/16 02:00 90 16 155/93 100 08/21/16 02:00 90 08/21/16 01:00 94 21 158/90 98 08/21/16 00:00 86 23 174/105 99 08/21/16 00:00 86 08/21/16 00:00 98.0 86 23 174/105 99 08/20/16 23:01 89 21 166/101 100 08/20/16 23:00 86 22 100 08/20/16 22:00 86 08/20/16 22:00 103 23 133/107 100 08/20/16 21:00 94 19 154/106 99 08/20/16 20:05 98 08/20/16 20:00 86 08/20/16 20:00 97.9 96 26 148/89 98 08/20/16 19:00 98 21 159/115 99 08/20/16 18:00 99 22 181/82 97 08/20/16 18:00 99 08/20/16 17:00 100 24 183/83 96 08/20/16 16:00 98.3 98 26 163/77 96 08/20/16 16:00 59 I/O 08/20/16 08/20/16 08/20/16 08/21/16 08/21/16 08/21/16 07:00 15:00 23:00 07:00 15:00 23:00 Intake Total 1539 ml 2230 ml 776 ml 527 ml Output Total 1325 ml 2555 ml 2000 ml 1100 ml Balance 214 ml -325 ml -1224 ml -573 ml Intake IV Total 1539 ml 2230 ml 776 ml 527 ml Output Urine Total 1325 ml 2555 ml 2000 ml 1100 ml # Bowel Movements 0 Result Diagram: 08/21/16 0344 08/21/16 0344 Imaging Last Impressions Renal Ultrasound 08/19/16 0000 Signed Impressions: Service Date/Time: Friday, August 19, 2016 11:41 - CONCLUSION: Increased renal cortical echogenicity. No hydronephrosis Ed Monaco MD Head CT 08/19/16 0000 Signed Impressions: Service Date/Time: Friday, August 19, 2016 10:48 - CONCLUSION: Motion degraded exam grossly negative for acute process. Ed Monaco MD Chest X-Ray 08/18/16 1649 Signed Impressions: Service Date/Time: Thursday, August 18, 2016 17:12 - CONCLUSION: No acute cardiopulmonary disease. Mihir Palmer MD Procedures None Other Results Laboratory Tests Test 08/18/16 08/18/16 08/18/16 08/18/16 16:50 16:55 17:20 21:15 Prothrombin Time 11.3 SEC Prothromb Time International 1.0 RATIO Ratio Activated Partial 22.9 SEC Thromboplast Time Troponin I 0.06 NG/ML Thyroid Stimulating Hormone 0.550 uIU/ML 3rd Gen Acetaminophen Level LESS THAN 2.0 MCG/ML Ethyl Alcohol Level LESS THAN 3 MG/DL Urine Color YELLOW Urine Turbidity HAZY Urine pH 5.5 Urine Specific Forks 1.023 Urine Protein 100 mg/dL Urine Glucose (UA) TRACE mg/dL Urine Ketones NEG mg/dL Urine Occult Blood MOD Urine Nitrite NEG Urine Bilirubin NEG Urine Urobilinogen LESS THAN 2.0 MG/DL Urine Leukocyte Esterase NEG Urine RBC 3 /hpf Urine WBC 15 /hpf Urine Squamous Epithelial 1 /hpf Cells Urine Amorphous Sediment RARE Urine Bacteria OCC /hpf Urine Hyaline Casts 69 /lpf Urine Mucus FEW /lpf Microscopic Urinalysis Comment CATH-CULTURE IND Urine Opiates Screen NEG Urine Barbiturates Screen NEG Urine Amphetamines Screen NEG Urine Benzodiazepines Screen NEG Urine Cocaine Screen NEG Urine Cannabinoids Screen POS Serum Osmolality 323 MOSM/KG Salicylates Level 2.1 MG/DL Nasal Screen MRSA (PCR) MRSA NOT DETECTED Test 08/19/16 08/19/16 08/19/16 08/19/16 04:03 09:50 12:15 15:55 Total Bilirubin 0.3 MG/DL Aspartate Amino Transf 54 U/L (AST/SGOT) Alanine Aminotransferase 21 U/L (ALT/SGPT) Alkaline Phosphatase 87 U/L Ammonia 30 MCMOL/L Albumin 3.1 GM/DL Urine Eosinophils NONE SEEN /HPF Lactic Acid Level 1.7 mmol/L 25-Hydroxy Vitamin D Total 40.7 ng/ML Parathyroid Hormone (Intact) 465.0 PG/ML Complement C3 96 MG/DL Complement C4 22 MG/DL Test 08/20/16 08/20/16 08/21/16 04:59 06:29 03:44 Blood Gas Puncture Site RT RADIAL Blood Gas Patient Temperature 98.6 Blood Gas HCO3 26 mmol/L Blood Gas Base Excess 2.5 mmol/L Blood Gas Oxygen Saturation 94 % Arterial Blood pH 7.49 Arterial Blood Partial 35 mmHg Pressure CO2 Arterial Blood Partial 90 mmHg Pressure O2 Arterial Blood Oxygen Content 17.7 Vol % Arterial Blood 1.4 % Carboxyhemoglobin Arterial Blood Methemoglobin 1.1 % Blood Gas Hemoglobin 13.3 G/DL Oxygen Delivery Device NASAL CANNULA Blood Gas Liter Flow 2 L/M Neutrophils (%) (Auto) 84.5 % Lymphocytes (%) (Auto) 9.6 % Monocytes (%) (Auto) 5.3 % Eosinophils (%) (Auto) 0.1 % Basophils (%) (Auto) 0.5 % Neutrophils # (Auto) 14.0 TH/MM3 Lymphocytes # (Auto) 1.6 TH/MM3 Monocytes # (Auto) 0.9 TH/MM3 Eosinophils # (Auto) 0.0 TH/MM3 Basophils # (Auto) 0.1 TH/MM3 CBC Comment DIFF FINAL Differential Comment Protein Corrected Calcium 7.3 MG/DL Total Creatine Kinase 2374 U/L Creatine Kinase MB 11.0 NG/ML Creatine Kinase MB % 0.5 % Total Protein 6.8 GM/DL White Blood Count 10.9 TH/MM3 Red Blood Count 4.04 MIL/MM3 Hemoglobin 14.2 GM/DL Hematocrit 41.8 % Mean Corpuscular Volume 103.4 FL Mean Corpuscular Hemoglobin 35.1 PG Mean Corpuscular Hemoglobin 34.0 % Concent Red Cell Distribution Width 14.1 % Platelet Count 212 TH/MM3 Mean Platelet Volume 8.7 FL Hematology Comments Sodium Level 139 MEQ/L Potassium Level 3.8 MEQ/L Chloride Level 99 MEQ/L Carbon Dioxide Level 30.5 MEQ/L Anion Gap 10 MEQ/L Blood Urea Nitrogen 10 MG/DL Creatinine 0.64 MG/DL Estimat Glomerular Filtration 130 ML/MIN Rate Random Glucose 75 MG/DL Calcium Level 7.5 MG/DL Phosphorus Level 1.4 MG/DL Magnesium Level 1.5 MG/DL Random Vancomycin Level 8.2 COMMENT Objective Remarks GENERAL: Malnourished, male with multiple superficial bruises/ abrasions upper and lower extremities talking inappropriately, alert but confused. SKIN: Warm and dry. Multiple abrasions noted HEAD: Atraumatic. Normocephalic. EYES: Pupils equal and round, currently miosis noted bilateral No scleral icterus. No injection or drainage. ENT: No nasal bleeding or discharge. Mucous membranes pink and moist. NECK: Trachea midline. No JVD. CARDIOVASCULAR: Normal rate, regular rhythm. RESPIRATORY: No accessory muscle use. Clear to auscultation. Breath sounds equal bilaterally. GASTROINTESTINAL: Abdomen soft, non-tender, nondistended. No guarding. MUSCULOSKELETAL: Extremities without clubbing, cyanosis, or edema. No obvious deformities. NEUROLOGICAL: Alert and confused. fugue of ideas. Medications and IVs Current Medications Medications (Trade) Dose Ordered Sig/Florentin Route Start Time Stop Time Status Last Admin (NS Flush) 2 ml UNSCH PRN IV FLUSH 08/18/16 17:00 (Tylenol) 650 mg Q6H PRN PO 08/18/16 19:30 08/21/16 10:00 (Protonix Inj) 40 mg DAILY IV 08/18/16 19:30 08/21/16 08:14 (Zofran Inj) 4 mg Q6H PRN IV 08/18/16 19:30 (Heparin Inj) 5,000 units Q12H SQ 08/18/16 20:00 08/21/16 08:14 Miscellaneous Information 1 [id number] XX 08/18/16 19:30 (Chlorhexidine 2% Cloth) 3 pack Taper DAILY@04 TOP 08/19/16 04:00 08/15/17 03:59 08/20/16 22:21 (Chlorhexidine 2% Cloth) 3 pack UNSCH PRN TOP 08/18/16 19:30 (Sanaz-Colace) 1 tab BID PO 08/18/16 21:00 08/21/16 08:14 (Milk Of Magnesia Liq) 30 ml Q12H PRN PO 08/18/16 19:30 (Senokot) 17.2 mg Q12H PRN PO 08/18/16 19:30 (Dulcolax Supp) 10 mg DAILY PRN RECTAL 08/18/16 19:30 (Lactulose Liq) 30 ml DAILY PRN PO 08/18/16 19:30 (Apresoline) 25 mg Q8HR PO 08/18/16 22:00 08/21/16 13:00 (D50w (Vial) Inj) 50 ml UNSCH PRN IV 08/19/16 10:15 Glucagon 1 mg 1 mg UNSCH PRN OTHER 08/19/16 10:15 Multivitamins 10 ml/Folic Acid 1 mg/Sodium Chloride 510.2 ml @ 125 mls/hr Q24H IV 08/19/16 11:00 08/24/16 10:59 08/21/16 12:59 Thiamine HCl 100 mg/Sodium Chloride 101 ml @ 100 mls/hr Q24H IV 08/19/16 11:00 08/22/16 10:59 08/21/16 11:26 (Vancomycin Consult Pharmacy) 0 ml @ 0 mls/hr UNSCH OTHER 08/19/16 10:15 (Romazicon Inj) 0.2 mg Q1M PRN IV PUSH 08/20/16 00:45 (Ativan) 1 mg Q4H PRN PO 08/20/16 00:45 08/21/16 10:12 (Ativan Inj) 1 mg Q4H PRN IV PUSH 08/20/16 00:45 08/20/16 05:23 (Ativan) 2 mg Q2H PRN PO 08/20/16 00:45 (Ativan Inj) 2 mg Q2H PRN IV PUSH 08/20/16 00:45 (Ativan Inj) 2 mg Q1H PRN IV PUSH 08/20/16 00:45 08/20/16 08:39 (Ativan Inj) 2 mg Q15M PRN IV PUSH 08/20/16 00:45 08/20/16 00:52 (Oscal) 500 mg DAILY PO 08/21/16 09:00 08/21/16 08:14 (Norvasc) 5 mg DAILY PO 08/21/16 09:00 08/21/16 08:14 (Apresoline Inj) 20 mg Q6H PRN IV PUSH 08/20/16 12:00 08/21/16 00:05 (Librium) 10 mg TID PO 08/20/16 13:00 08/21/16 13:00 (ZyPREXA) 5 mg Q12HR PO 08/20/16 13:30 08/21/16 08:14 (ZyPREXA INJ) 10 mg Q12H PRN IM 08/20/16 13:30 (Lopressor) 12.5 mg Q8HR PO 08/20/16 22:00 08/21/16 13:00 Miscellaneous 1 ea 1 ea UNSCH PRN OTHER 08/20/16 15:15 Dextrose/Sodium Chloride 1,000 ml @ 75 mls/hr [id number] IV 08/20/16 16:00 08/21/16 02:42 (Vancomycin Inj/ NS 250 ml Inj) 257.5 ml @ 250 mls/hr Q12H IV 08/21/16 11:00 08/21/16 10:08 Miscellaneous Information SPECIFIC LAB TO BE DRAWN:VANCOMYCIN TROUGH DATE TO... ONCE ONCE .XX 08/22/16 22:45 08/22/16 22:46 Sodium Phosphate 21 mmol/Sodium Chloride 157 ml @ 38.75 mls/ hr ONCE ONCE IV 08/21/16 10:15 08/21/16 14:18 08/21/16 10:30 (Maxipime Inj/NS Inj) 100 ml @ 200 mls/hr Q8H IV 08/21/16 21:00 A/P Assessment and Plan 1. Metabolic Encephalopathy, Intensive Care unit admission, Neuro checks, CIWA protocol, Librium TID Olanzapine per Psychiatry specialist, Restraints, monitor seizure precautions. continue Oxygen maintain Oxygen saturation greater than 92%, Obtain ABG rule out CO2 Narcosis. on Empiric antibiotics Cefepime and Vancomycin. continue present care. asked for PT evaluation. 2. Acute Kidney Injury probable related to Severe dehydration, Improved. 3. Rhabdomyolysis needs to continue IV fluids Nephrology following. 4. Suicidal ideation Psychiatry following needs to continue management. 5. Leukocytosis Improving, on Empiric antibiotics, I think he does not need antibiotics, if afebrile and no sings of infection tomorrow handle off antibiotics. 6. EtOH abuse continue CIWA protocol. 7. Hypertension Better control. 8. Electrolyte derangement today Magnesium 1.5 and Phosphorus 1.4. Replaced. Prophylaxis: GI Prophylaxis Protonix DVT Prophylaxis - SCDs Lovenox. Asked for PT evaluation, Aircraft Engine Mechanic Supervisor for discharge. Discharge Planning Expected in two days will be transferred to Psych unit if so by Psychiatry specialist. Enrique Nunez MD Aug 21, 2016 14:13
[2016-08-21] MEDS: LORazepam 2 MG TAB PO PRN (15:27)
[2016-08-21] MEDS: LORazepam 2 MG/ML VIAL IV PUSH PRN ×2 (18:17→23:24)
[2016-08-21] MEDS: CEFEPIME INJ 2,000 MG in SODIUM CHLORIDE 0.9% INJ 100 ML IV SCH (21:55)
[2016-08-22] VITALS (22 sets, daily range): BP systolic 123–174; BP diastolic 77–106; PULSE 88–113; RESP 15–23; TEMP 97.5–98.3; O2SAT 95–99
[2016-08-22] MEDS: LORazepam 2 MG/ML VIAL IV PUSH PRN ×2 (01:15→08:27)
[2016-08-22] MEDS: hydrALAZINE HCL 20 MG/ML VIAL IV PUSH PRN (03:47)
[2016-08-22] MEDS: CHLORHEXIDINE GLUCONATE 2 % 1 PACK (2 CLOTHS) TOP SCH (04:00)
[2016-08-22 05:05] LABS: BICARBONATE 34.4 MEQ/L (21.0-32.0); MAGNESIUM 1.8 MG/DL (1.5-2.5)
[2016-08-22] MEDS: hydrALAZINE HCL 25 MG TAB PO SCH ×3 (05:43→22:10)
[2016-08-22] MEDS: CEFEPIME INJ 2,000 MG in SODIUM CHLORIDE 0.9% INJ 100 ML IV SCH ×2 (05:43→11:53)
[2016-08-22] MEDS: METOPROLOL TARTRATE 25 MG TAB PO SCH ×3 (05:44→22:10)
[2016-08-22 05:53] LABS: POTASSIUM 2.2 MEQ/L (3.5-5.1)
[2016-08-22] MEDS ORDERED: POTASSIUM CHLOR 20 MEQ PREMIX 100 ML IV ONE (07:15)
[2016-08-22] MEDS ORDERED: POTASSIUM PHOSPHATE INJ 30 MMOL in SODIUM CHLOR 0.9% 250 ML INJ 250 ML IV ONE (07:15)
[2016-08-22] MEDS ORDERED: POTASSIUM CHLORIDE 25 MEQ EFFERVESCENT TAB PO ONE (07:15)
[2016-08-22] MEDS: HEPARIN SODIUM - SQ 10,000 UNITS/ML VIAL SQ SCH ×2 (08:25→22:11)
[2016-08-22] MEDS: OLANZapine 5 MG TAB PO SCH ×2 (08:26→22:10)
[2016-08-22] MEDS: DOCUSATE SODIUM 50 MG/SENNA 8.6 MG TAB PO SCH ×2 (08:26→21:00)
[2016-08-22] MEDS: CALCIUM CARBONATE 1.25 GM (CA 500 MG) TAB PO SCH (08:26)
[2016-08-22] MEDS: PANTOPRAZOLE SODIUM 40 MG VIAL IV SCH (08:26)
[2016-08-22] MEDS: amLODIPine BESYLATE 5 MG TAB PO SCH (08:26)
[2016-08-22] MEDS: DEXT 5%-NACL 0.45% 1000 ML INJ 1,000 ML IV SCH (09:37)
[2016-08-22] MEDS: LORazepam 2 MG TAB PO PRN (10:43)
[2016-08-22] MEDS: VANCOMYCIN INJ 750 MG in SODIUM CHLOR 0.9% 250 ML INJ 250 ML IV SCH (10:43)
[2016-08-22] MEDS: MULTIVITAMIN INJ 10 ML, FOLIC ACID INJ 1 MG in SODIUM CHLORID 0.9% 500 ML INJ 500 ML IV SCH (12:52)
--- NOTE | 2016-08-22 13:56 | HHI.PR ---
Subjective Remarks States that he is not suicidal. He loves life too much. No complaints chest pain or shortness of breath, he states he is not depressed. Objective Vitals Vital Signs Date Time Temp Pulse Resp B/P Pulse Ox O2 Delivery O2 Flow Rate FiO2 08/22/16 13:00 102 16 150/81 98 08/22/16 12:00 113 08/22/16 12:00 97.5 105 18 145/84 96 08/22/16 11:00 104 19 140/98 98 08/22/16 10:49 97 08/22/16 10:00 109 08/22/16 10:00 109 16 123/79 97 08/22/16 09:00 103 19 162/85 97 08/22/16 08:00 98.3 98 16 172/95 96 08/22/16 08:00 88 08/22/16 07:00 89 18 164/87 96 08/22/16 06:00 101 08/22/16 04:00 98.3 101 18 170/98 95 08/22/16 04:00 101 08/22/16 02:00 96 08/22/16 00:00 93 08/22/16 00:00 98.0 93 23 125/92 97 08/21/16 22:00 115 08/21/16 20:00 97.7 111 22 115/72 91 08/21/16 20:00 111 08/21/16 19:58 96 21 08/21/16 18:00 91 19 156/105 98 08/21/16 18:00 91 08/21/16 17:00 86 18 170/99 97 08/21/16 16:00 98.0 84 24 154/98 97 08/21/16 16:00 84 08/21/16 15:00 91 27 147/96 97 08/21/16 14:00 87 08/21/16 14:00 79 15 159/98 97 I/O 08/21/16 08/21/16 08/21/16 08/22/16 08/22/16 08/22/16 07:00 15:00 23:00 07:00 15:00 23:00 Intake Total 527 ml 1370 ml 1071 ml 634 ml Output Total 1100 ml 1195 ml 1050 ml 850 ml Balance -573 ml 175 ml 21 ml -216 ml Intake Oral 120 ml IV Total 527 ml 1370 ml 1071 ml 514 ml Output Urine Total 1100 ml 1195 ml 1050 ml 850 ml Stool Total 0 ml # Bowel Movements 0 0 0 Result Diagram: 08/21/16 0344 08/22/16 0318 Objective Remarks GENERAL: This is a well-nourished, disheveled, well-developed patient, in no apparent distress. CARDIOVASCULAR: Regular rate and rhythm RESPIRATORY: Clear to auscultation. Breath sounds equal bilaterally. No wheezes , rales, or rhonchi. GASTROINTESTINAL: Abdomen soft, non-tender, nondistended. Normal active bowel sounds MUSCULOSKELETAL: Extremities without clubbing, cyanosis, or edema. NEURO: Anxious, confused, not oriented to place time or situation oriented to person. Follows simple directions. Moves all ext x4 Date of Insertion: Aug 19, 2016 A/P Assessment and Plan 1. Metabolic Encephalopathy, with active alcohol withdrawal continue Neuro checks, CIWA protocol, Librium TID initiated by commissioner of internal revenue. Olanzapine per Psychiatry specialist, Restraints for safety to prevent self- harm, monitor seizure precautions. continue Oxygen maintain Oxygen saturation greater than 92%, discontinue empiric antibiotics as no sign of active infection found. 2. Acute Kidney Injury probable related to Severe dehydration, Improved, resolved. Status post IV fluid hydration. 3. Rhabdomyolysis needs to continue IV fluids Nephrology following. 4. Suicidal ideation Psychiatry following needs to continue management. Patient denies any suicidal thoughts at this time. When patient is more alert and oriented when he another re-evaluation with psychiatry to determine removing Lees act. 5. Leukocytosis Improving, on Empiric antibiotics which we discontinued today. This likely due to acute stress reaction. No signs or symptoms of infection. 6. EtOH abuse with no active which all symptoms. Continue CIWA protocol with benzodiazepines. 7. Hypertension labile and continue with antihypertensives. 8. Severe hypokalemiareplete and re-check levels today. Magnesium level within normal limits. GI Prophylaxis Protonix DVT Prophylaxis - SCDs Lovenox. Discharge Planning Possible home with home health care when medically clear. Josephine Rodriguez MD Aug 22, 2016 13:56
[2016-08-22] MEDS: LORazepam 1 MG TAB PO PRN (17:02)
[2016-08-22] MEDS ORDERED: POTASSIUM CHLORIDE 20 MEQ CONTROLLED RELEASE TAB PO ONE (21:15)
[2016-08-22 21:34] LABS: MAGNESIUM 1.6 MG/DL (1.5-2.5)
[2016-08-22] MEDS: POTASSIUM CHLOR 20 MEQ PREMIX 100 ML IV SCH (22:10)
[2016-08-22] MEDS ORDERED: PHARMACY ORDERED LAB ONE (22:45)
[2016-08-23] VITALS (21 sets, daily range): BP systolic 125–165; BP diastolic 61–109; PULSE 91–128; RESP 15–32; TEMP 97.1–98; O2SAT 94–98
[2016-08-23] MEDS: hydrALAZINE HCL 20 MG/ML VIAL IV PUSH PRN ×3 (00:19→20:23)
[2016-08-23] MEDS: LORazepam 2 MG/ML VIAL IV PUSH PRN ×4 (00:19→20:38)
[2016-08-23] MEDS: MAGNESIUM SULFATE 1 GM PREMIX 100 ML IV SCH ×2 (00:19→01:30)
[2016-08-23] MEDS: POTASSIUM CHLOR 20 MEQ PREMIX 100 ML IV SCH (00:21)
[2016-08-23] MEDS: ACETAMINOPHEN 325 MG TAB PO PRN (00:22)
[2016-08-23] MEDS: CHLORHEXIDINE GLUCONATE 2 % 1 PACK (2 CLOTHS) TOP SCH (03:00)
[2016-08-23] MEDS: hydrALAZINE HCL 25 MG TAB PO SCH (06:00)
[2016-08-23] MEDS: METOPROLOL TARTRATE 25 MG TAB PO SCH ×3 (06:00→21:11)
[2016-08-23 06:36] LABS: BICARBONATE 31.2 MEQ/L (21.0-32.0); MAGNESIUM 2.2 MG/DL (1.5-2.5)
[2016-08-23] MEDS: OLANZapine 5 MG TAB PO SCH ×2 (08:03→20:23)
[2016-08-23] MEDS: HEPARIN SODIUM - SQ 10,000 UNITS/ML VIAL SQ SCH ×2 (08:03→20:24)
[2016-08-23] MEDS: amLODIPine BESYLATE 5 MG TAB PO SCH (08:03)
[2016-08-23] MEDS: DOCUSATE SODIUM 50 MG/SENNA 8.6 MG TAB PO SCH ×2 (08:03→20:23)
[2016-08-23] MEDS: PANTOPRAZOLE SOD 40 MG DELAYED RELEASE TAB PO SCH (08:04)
[2016-08-23] MEDS: CALCIUM CARBONATE 1.25 GM (CA 500 MG) TAB PO SCH (08:04)
[2016-08-23] MEDS: LORazepam 2 MG TAB PO PRN (09:23)
--- NOTE | 2016-08-23 10:26 | HHI.PR ---
Subjective Remarks Patient in bed, in restraints. He is alert and oriented by name and month only. + tremors of the hands. +delirium at times. Patient is telling me he wants to go home. No fever or chills. No n/v/d/c. Objective Vitals Vital Signs Date Time Temp Pulse Resp B/P Pulse Ox O2 Delivery O2 Flow Rate FiO2 08/23/16 09:21 97 08/23/16 06:00 91 15 163/86 96 08/23/16 06:00 91 08/23/16 05:00 99 18 159/82 96 08/23/16 04:16 99 21 134/85 96 08/23/16 04:00 101 18 96 08/23/16 04:00 97.6 101 16 134/85 96 08/23/16 04:00 101 08/23/16 03:00 96 17 136/90 96 08/23/16 02:00 98 08/23/16 02:00 98 23 132/91 94 08/23/16 01:22 18 08/23/16 01:00 101 18 135/87 94 08/23/16 00:38 107 32 146/102 96 08/23/16 00:07 95 19 156/106 96 08/23/16 00:06 95 17 160/109 96 08/23/16 00:00 95 23 143/103 96 08/23/16 00:00 95 23 143/103 96 08/23/16 00:00 95 08/23/16 00:00 98.0 95 18 143/103 96 08/22/16 23:00 98 19 168/77 97 08/22/16 22:00 103 08/22/16 22:00 103 16 166/99 96 08/22/16 21:29 98 15 174/99 96 08/22/16 21:00 106 15 158/106 96 08/22/16 20:00 103 19 136/80 95 08/22/16 20:00 103 08/22/16 20:00 97.9 103 16 136/80 95 08/22/16 19:29 99 08/22/16 18:00 105 08/22/16 16:00 97.5 95 16 165/94 97 08/22/16 16:00 95 08/22/16 15:00 101 16 167/98 97 08/22/16 14:00 101 08/22/16 14:00 101 15 157/96 99 08/22/16 13:00 102 16 150/81 98 08/22/16 12:00 113 08/22/16 12:00 97.5 105 18 145/84 96 08/22/16 11:00 104 19 140/98 98 08/22/16 10:49 97 I/O 08/22/16 08/22/16 08/22/16 08/23/16 08/23/16 08/23/16 07:00 15:00 23:00 07:00 15:00 23:00 Intake Total 634 ml 1730 ml 486 ml 1082 ml Output Total 850 ml 775 ml 1450 ml 825 ml Balance -216 ml 955 ml -964 ml 257 ml Intake Oral 120 ml 444 ml 120 ml 440 ml IV Total 514 ml 1286 ml 366 ml 642 ml Output Urine Total 850 ml 775 ml 1450 ml 825 ml Stool Total 0 ml # Bowel Movements 0 0 1 1 Result Diagram: 08/21/16 0344 08/23/16 0528 Imaging Last Impressions Renal Ultrasound 08/19/16 0000 Signed Impressions: Service Date/Time: Friday, August 19, 2016 11:41 - CONCLUSION: Increased renal cortical echogenicity. No hydronephrosis Ed Monaco MD Head CT 08/19/16 0000 Signed Impressions: Service Date/Time: Friday, August 19, 2016 10:48 - CONCLUSION: Motion degraded exam grossly negative for acute process. Ed Monaco MD Chest X-Ray 08/18/16 1649 Signed Impressions: Service Date/Time: Thursday, August 18, 2016 17:12 - CONCLUSION: No acute cardiopulmonary disease. Mihir Palmer MD Objective Remarks GENERAL: This is a well-nourished, disheveled, well-developed patient, in no apparent distress. CARDIOVASCULAR: Regular rate and rhythm RESPIRATORY: Clear to auscultation. Breath sounds equal bilaterally. No wheezes , rales, or rhonchi. GASTROINTESTINAL: Abdomen soft, non-tender, nondistended. Normal active bowel sounds MUSCULOSKELETAL: Extremities without clubbing, cyanosis, or edema. NEURO: Anxious, confused, not oriented to place time or situation oriented to person. Follows simple directions. Moves all ext x4 Date of Insertion: Aug 19, 2016 A/P Assessment and Plan Metabolic Encephalopathy, with active alcohol withdrawal continue Neuro checks , CIWA protocol, Librium TID initiated by electrical maintenance man. Olanzapine per Psychiatry specialist, Restraints for safety to prevent self-harm , monitor seizure precautions. Continue Oxygen maintain Oxygen saturation greater than 92%, discontinue empiric antibiotics as no sign of active infection found. Acute Kidney Injury probable related to Severe dehydration. Improved, resolved. Status post IV fluid hydration. Rhabdomyolysis needs to continue IV fluids Nephrology following. Suicidal ideation Psychiatry following needs to continue management. Patient denies any suicidal thoughts at this time. When patient is more alert and oriented when he another re-evaluation with psychiatry to determine removing Lees act. Leukocytosis Improving, on Empiric antibiotics which we discontinued today. This likely due to acute stress reaction. No signs or symptoms of infection. EtOH abuse with no active withdrawal symptoms. Continue CIWA protocol with benzodiazepines. Hypertension labile monitor and continue with antihypertensives. Severe hypokalemiareplete and monitor. Magnesium level within normal limits. GI Prophylaxis Protonix DVT Prophylaxis - SCDs Lovenox. Discharge Planning home with home health care when medically clear. Siomara Sumner MD Aug 23, 2016 10:26
[2016-08-23] MEDS ORDERED: POTASSIUM CHLORIDE 25 MEQ EFFERVESCENT TAB PO PRN (12:45)
[2016-08-23] MEDS ORDERED: POTASSIUM CHLOR 20 MEQ PREMIX 100 ML IV PRN (12:45)
[2016-08-23] MEDS ORDERED: MAGNESIUM SULFATE INJ 2 GM in SODIUM CHLORIDE 0.9% INJ 96 ML IV PRN (12:45)
[2016-08-23] MEDS ORDERED: POTASSIUM PHOSPHATE MONOBASIC 500 MG TAB PO PRN (12:45)
[2016-08-23] MEDS ORDERED: POTASSIUM PHOSPHATE INJ 30 MMOL in SODIUM CHLOR 0.9% 250 ML INJ 250 ML IV PRN (12:45)
[2016-08-23] MEDS ORDERED: POTASSIUM PHOSPHATE MONOBASIC 500 MG TAB PO/TUBE PRN (12:45)
[2016-08-23] MEDS ORDERED: SODIUM PHOSPHATE INJ 30 MMOL in SODIUM CHLOR 0.9% 250 ML INJ 240 ML IV PRN (12:45)
[2016-08-23] MEDS ORDERED: MAGNESIUM OXIDE 400 MG TAB PO PRN (12:45)
[2016-08-23] MEDS ORDERED: POTASSIUM CHLOR 40 MEQ PREMIX 100 ML IV PRN ×2 (12:45)
[2016-08-23] MEDS ORDERED: cloNIDine HCL 0.1 MG TAB PO PRN (12:45)
[2016-08-23] MEDS ORDERED: MAGNESIUM SULFATE INJ 4 GM in SODIUM CHLORIDE 0.9% INJ 92 ML IV PRN (12:45)
[2016-08-23] MEDS: hydrALAZINE HCL 50 MG TAB PO SCH ×2 (14:00→17:45)
[2016-08-23] MEDS: MULTIVITAMIN INJ 10 ML, FOLIC ACID INJ 1 MG in SODIUM CHLORID 0.9% 500 ML INJ 500 ML IV SCH (15:33)
[2016-08-23] MEDS: POTASSIUM CHLOR 20 MEQ PREMIX 100 ML IV PRN ×4 (15:35→22:23)
[2016-08-24] VITALS (22 sets, daily range): BP systolic 138–172; BP diastolic 87–123; PULSE 83–107; RESP 14–28; TEMP 97.3–98.1; O2SAT 96–99
[2016-08-24] MEDS: LORazepam 2 MG/ML VIAL IV PUSH PRN ×6 (00:33→13:24)
[2016-08-24] MEDS: CHLORHEXIDINE GLUCONATE 2 % 1 PACK (2 CLOTHS) TOP SCH (01:32)
[2016-08-24] MEDS: hydrALAZINE HCL 50 MG TAB PO SCH ×3 (06:23→22:25)
[2016-08-24] MEDS: METOPROLOL TARTRATE 25 MG TAB PO SCH (06:23)
[2016-08-24 06:51] LABS: AUTOMATED NEUTROPHIL # 5.4 TH/MM3 (1.8-7.7); BASOPHIL % 0.5 % (0.0-2.0); EOSINOPHIL # 0.2 TH/MM3 (0-0.4); EOSINOPHIL % 2.8 % (0.0-4.0); HEMATOCRIT 31.8 % (39.0-51.0); HEMO FLAGS DIFF FINAL; LYMPH % 16.5 % (9.0-44.0); LYMPHOCYTE # 1.2 TH/MM3 (1.0-4.8); MEAN CELL VOLUME 103.9 FL (80.0-100.0); MEAN CORPUSCULAR HEMOGLOBIN 34.7 PG (27.0-34.0); MEAN CORPUSCULAR HGB CONC 33.4 % (32.0-36.0); MONO % 9.2 % (0.0-8.0); PLATELET COUNT 122 TH/MM3 (150-450); RED BLOOD COUNT 3.06 MIL/MM3 (4.50-5.90); RED CELL DISTRIBUTION WIDTH 13.9 % (11.6-17.2); WHITE BLOOD COUNT 7.6 TH/MM3 (4.0-11.0)
[2016-08-24 07:01] LABS: BICARBONATE 30.1 MEQ/L (21.0-32.0); MAGNESIUM 1.6 MG/DL (1.5-2.5); POTASSIUM 3.4 MEQ/L (3.5-5.1)
--- NOTE | 2016-08-24 07:48 | HHI.PR ---
Subjective Remarks Patient in bed, in restraints, alert and awake, same like yesterday. He denies having any chest pain. No n/v/d/c. No fever overnight. Has fine hand tremor Objective Vitals Vital Signs Date Time Temp Pulse Resp B/P Pulse Ox O2 Delivery O2 Flow Rate FiO2 08/24/16 06:00 93 08/24/16 04:00 97 08/24/16 04:00 97.3 97 14 155/106 98 08/24/16 00:00 97.5 104 24 170/90 98 08/24/16 00:00 104 08/23/16 22:00 105 08/23/16 20:28 97 08/23/16 20:00 128 08/23/16 20:00 97.7 128 24 162/98 98 08/23/16 18:00 111 08/23/16 16:00 97.1 108 21 161/87 95 08/23/16 16:00 111 08/23/16 14:00 108 08/23/16 12:00 97.4 108 16 125/61 95 08/23/16 12:00 108 08/23/16 10:00 105 08/23/16 09:21 97 08/23/16 08:00 97.1 102 21 165/107 97 08/23/16 08:00 111 I/O 08/23/16 08/23/16 08/23/16 08/24/16 08/24/16 08/24/16 07:00 15:00 23:00 07:00 15:00 23:00 Intake Total 1082 ml 1128 ml 1086 ml 380 ml Output Total 825 ml 700 ml 700 ml 900 ml Balance 257 ml 428 ml 386 ml -520 ml Intake Oral 440 ml 400 ml 240 ml 180 ml IV Total 642 ml 728 ml 846 ml 200 ml Output Urine Total 825 ml 700 ml 700 ml 900 ml # Bowel Movements 1 0 0 Result Diagram: 08/21/16 0344 08/24/16 0538 Imaging Last Impressions Renal Ultrasound 08/19/16 0000 Signed Impressions: Service Date/Time: Friday, August 19, 2016 11:41 - CONCLUSION: Increased renal cortical echogenicity. No hydronephrosis Ed Monaco MD Head CT 08/19/16 0000 Signed Impressions: Service Date/Time: Friday, August 19, 2016 10:48 - CONCLUSION: Motion degraded exam grossly negative for acute process. Ed Monaco MD Chest X-Ray 08/18/16 1642 Signed Impressions: Service Date/Time: Thursday, August 18, 2016 17:12 - CONCLUSION: No acute cardiopulmonary disease. Mihir Palmer MD Objective Remarks GENERAL: This is a well-nourished, disheveled, well-developed patient, in no apparent distress. CARDIOVASCULAR: Regular rate and rhythm RESPIRATORY: Clear to auscultation. Breath sounds equal bilaterally. No wheezes , rales, or rhonchi. GASTROINTESTINAL: Abdomen soft, non-tender, nondistended. Normal active bowel sounds MUSCULOSKELETAL: Extremities without clubbing, cyanosis, or edema. NEURO: Anxious, confused, not oriented to place time or situation oriented to person. Follows simple directions. Moves all ext x4 Date of Insertion: Aug 19, 2016 A/P Assessment and Plan Metabolic Encephalopathy, with active alcohol withdrawal continue Neuro checks , CIWA protocol, Librium TID initiated by hand sewer shoes. Olanzapine per Psychiatry specialist, Restraints for safety to prevent self-harm , monitor seizure precautions. Continue Oxygen maintain Oxygen saturation greater than 92%, discontinue empiric antibiotics as no sign of active infection found. Acute Kidney Injury probable related to Severe dehydration. Improved, resolved. Status post IV fluid hydration. Rhabdomyolysis needs to continue IV fluids Nephrology following. Suicidal ideation Psychiatry following needs to continue management. Patient denies any suicidal thoughts at this time. When patient is more alert and oriented when he another re-evaluation with psychiatry to determine removing Lees act. Leukocytosis Improving, on Empiric antibiotics which we discontinued today. This likely due to acute stress reaction. No signs or symptoms of infection. EtOH abuse with no active withdrawal symptoms. Continue CIWA protocol with benzodiazepines. Hypertension labile monitor and continue with antihypertensives. Severe hypokalemiareplete and monitor. Magnesium level within normal limits. GI Prophylaxis Protonix DVT Prophylaxis - SCDs Lovenox. Discharge Planning home with home health care when medically clear. Transfer to med/surg floor Siomara Sumner MD Aug 24, 2016 07:48
[2016-08-24] MEDS: DOCUSATE SODIUM 50 MG/SENNA 8.6 MG TAB PO SCH ×2 (09:00→21:00)
[2016-08-24] MEDS: CALCIUM CARBONATE 1.25 GM (CA 500 MG) TAB PO SCH (09:16)
[2016-08-24] MEDS: PANTOPRAZOLE SOD 40 MG DELAYED RELEASE TAB PO SCH (09:16)
[2016-08-24] MEDS: OLANZapine 5 MG TAB PO SCH ×2 (09:16→22:25)
[2016-08-24] MEDS: amLODIPine BESYLATE 5 MG TAB PO SCH (09:16)
[2016-08-24] MEDS: HEPARIN SODIUM - SQ 10,000 UNITS/ML VIAL SQ SCH ×2 (09:16→22:25)
[2016-08-24] MEDS: METOPROLOL TARTRATE 50 MG TAB PO SCH ×2 (13:24→22:26)
[2016-08-24] MEDS: hydrALAZINE HCL 20 MG/ML VIAL IV PUSH PRN (20:43)
[2016-08-25] VITALS (9 sets, daily range): BP systolic 102–168; BP diastolic 71–115; PULSE 78–98; RESP 17–20; TEMP 96.1–97.5; O2SAT 95–99
[2016-08-25] MEDS: CHLORHEXIDINE GLUCONATE 2 % 1 PACK (2 CLOTHS) TOP SCH (03:37)
[2016-08-25] MEDS: hydrALAZINE HCL 50 MG TAB PO SCH ×3 (05:36→22:43)
[2016-08-25] MEDS: METOPROLOL TARTRATE 50 MG TAB PO SCH ×3 (05:37→22:43)
[2016-08-25 07:30] LABS: AUTOMATED NEUTROPHIL # 6.1 TH/MM3 (1.8-7.7); BASOPHIL # 0.1 TH/MM3 (0-0.2); EOSINOPHIL # 0.2 TH/MM3 (0-0.4); EOSINOPHIL % 2.4 % (0.0-4.0); HEMO FLAGS DIFF FINAL; LYMPH % 16.4 % (9.0-44.0); LYMPHOCYTE # 1.4 TH/MM3 (1.0-4.8); MEAN CELL VOLUME 102.8 FL (80.0-100.0); MEAN CORPUSCULAR HEMOGLOBIN 35.9 PG (27.0-34.0); NEUT % 70.2 % (16.0-70.0); PLATELET COUNT 154 TH/MM3 (150-450); RED CELL DISTRIBUTION WIDTH 13.7 % (11.6-17.2); WHITE BLOOD COUNT 8.7 TH/MM3 (4.0-11.0)
[2016-08-25 08:00] LABS: BICARBONATE 26.9 MEQ/L (21.0-32.0); MAGNESIUM 1.4 MG/DL (1.5-2.5); POTASSIUM 3.6 MEQ/L (3.5-5.1)
[2016-08-25] MEDS: DOCUSATE SODIUM 50 MG/SENNA 8.6 MG TAB PO SCH ×2 (09:00→20:50)
[2016-08-25] MEDS: OLANZapine 5 MG TAB PO SCH ×2 (09:00→20:49)
[2016-08-25] MEDS: CALCIUM CARBONATE 1.25 GM (CA 500 MG) TAB PO SCH (09:17)
[2016-08-25] MEDS: PANTOPRAZOLE SOD 40 MG DELAYED RELEASE TAB PO SCH (09:17)
[2016-08-25] MEDS: HEPARIN SODIUM - SQ 10,000 UNITS/ML VIAL SQ SCH ×2 (09:17→20:49)
[2016-08-25] MEDS: amLODIPine BESYLATE 5 MG TAB PO SCH (09:18)
[2016-08-25] MEDS: LORazepam 2 MG TAB PO PRN (10:33)
--- NOTE | 2016-08-25 12:18 | HHI.PR ---
Subjective Remarks No acute events overnight. Afebrile, vital signs stable. Patient sleeping in bed, arousable. Denies SI at this time. Objective Vitals Vital Signs Date Time Temp Pulse Resp B/P Pulse Ox O2 Delivery O2 Flow Rate FiO2 08/25/16 12:00 97.2 95 18 102/71 95 08/25/16 08:58 98 21 08/25/16 08:00 96.9 82 17 155/96 98 08/25/16 06:40 134/93 08/25/16 04:50 97.0 89 17 168/115 96 08/25/16 04:00 98 08/24/16 23:45 97.5 87 18 141/100 96 08/24/16 23:00 107 08/24/16 22:15 97 21 08/24/16 22:00 98 146/94 97 08/24/16 22:00 98 08/24/16 21:00 106 08/24/16 21:00 106 23 166/92 97 08/24/16 20:46 96 14 162/96 97 08/24/16 20:01 100 24 172/123 98 08/24/16 20:00 98.1 96 28 138/87 98 08/24/16 20:00 96 08/24/16 20:00 96 28 98 08/24/16 19:29 96 23 161/96 99 08/24/16 19:00 92 16 160/111 99 08/24/16 18:32 93 08/24/16 18:00 90 17 166/101 98 08/24/16 17:01 83 18 152/95 99 08/24/16 17:00 83 17 164/107 99 08/24/16 16:00 105 08/24/16 16:00 97.5 90 20 138/87 98 08/24/16 14:00 93 I/O 08/24/16 08/24/16 08/24/16 08/25/16 08/25/16 08/25/16 07:00 15:00 23:00 07:00 15:00 23:00 Intake Total 380 ml 340 ml 480 ml 60 ml Output Total 900 ml 700 ml 1675 ml 300 ml Balance -520 ml -360 ml -1195 ml -240 ml Intake Oral 180 ml 240 ml 480 ml 60 ml IV Total 200 ml 100 ml Output Urine Total 900 ml 700 ml 1675 ml 300 ml # Bowel Movements 0 0 0 0 Result Diagram: 08/25/16 0656 08/25/16 0656 Objective Remarks GENERAL: This is a well-nourished, disheveled, well-developed patient, in no apparent distress. CARDIOVASCULAR: Regular rate and rhythm RESPIRATORY: Clear to auscultation. Breath sounds equal bilaterally. No wheezes , rales, or rhonchi. GASTROINTESTINAL: Abdomen soft, non-tender, nondistended. Normal active bowel sounds MUSCULOSKELETAL: Extremities without clubbing, cyanosis, or edema. NEURO: Anxious, confused, not oriented to place time or situation oriented to person. Follows simple directions. 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 Continue scheduled Librium as patient still requiring multiple doses of Ativan for elevated CIWA scores. Olanzapine per Psychiatry specialist, Restraints for safety to prevent self-harm , monitor seizure precautions. Continue Oxygen maintain Oxygen saturation greater than 92%, discontinue empiric antibiotics as no sign of active infection found. Acute Kidney Injury probable related to Severe dehydration. Improved, resolved. Status post IV fluid hydration. Rhabdomyolysis needs to continue IV fluids Nephrology following. Suicidal ideation Psychiatry following needs to continue management. Patient denies any suicidal thoughts at this time. When patient is more alert and oriented when he another re-evaluation with psychiatry to determine removing Lees act. Leukocytosis Improving, on Empiric antibiotics which we discontinued today. This likely due to acute stress reaction. No signs or symptoms of infection. EtOH abuse with no active withdrawal symptoms. Continue CIWA protocol with benzodiazepines. Hypertension labile monitor and continue with antihypertensives. Severe hypokalemiareplete and monitor. Magnesium level within normal limits. GI Prophylaxis Protonix DVT Prophylaxis - SCDs Lovenox. Discharge Planning home with home health care when medically clear. Bri Sanabria MD R3 Aug 25, 2016 12:18
[2016-08-25] MEDS ORDERED: POTASSIUM CHLORIDE 20 MEQ CONTROLLED RELEASE TAB PO ONE (12:30)
[2016-08-25] MEDS ORDERED: MAGNESIUM OXIDE 400 MG TAB PO ONE (12:30)
[2016-08-26] VITALS: BP 137/81; PULSE 91; RESP 18; TEMP 97.1; O2SAT 99
[2016-08-26] MEDS: CHLORHEXIDINE GLUCONATE 2 % 1 PACK (2 CLOTHS) TOP SCH (03:17)
[2016-08-26 04:00] VITALS: BP 127/84; PULSE 98; RESP 20; TEMP 97.6; O2SAT 98
[2016-08-26] MEDS: METOPROLOL TARTRATE 50 MG TAB PO SCH ×3 (06:15→21:46)
[2016-08-26] MEDS: hydrALAZINE HCL 50 MG TAB PO SCH (06:15)
[2016-08-26 07:08] LABS: AUTOMATED NEUTROPHIL # 6.8 TH/MM3 (1.8-7.7); BASOPHIL # 0.1 TH/MM3 (0-0.2); BASOPHIL % 0.7 % (0.0-2.0); EOSINOPHIL # 0.3 TH/MM3 (0-0.4); EOSINOPHIL % 3.1 % (0.0-4.0); HEMATOCRIT 35.6 % (39.0-51.0); HEMO FLAGS DIFF FINAL; LYMPH % 17.5 % (9.0-44.0); LYMPHOCYTE # 1.8 TH/MM3 (1.0-4.8); MEAN CELL VOLUME 103.3 FL (80.0-100.0); MEAN CORPUSCULAR HEMOGLOBIN 35.4 PG (27.0-34.0); MEAN CORPUSCULAR HGB CONC 34.3 % (32.0-36.0); MONO % 11.4 % (0.0-8.0); NEUT % 67.3 % (16.0-70.0); PLATELET COUNT 240 TH/MM3 (150-450); RED BLOOD COUNT 3.44 MIL/MM3 (4.50-5.90); RED CELL DISTRIBUTION WIDTH 13.8 % (11.6-17.2); WHITE BLOOD COUNT 10.1 TH/MM3 (4.0-11.0)
[2016-08-26 07:51] LABS: ANION GAP 8 MEQ/L (5-15); BICARBONATE 27.8 MEQ/L (21.0-32.0); BLOOD UREA NITROGEN 16 MG/DL (7-18); CHLORIDE 102 MEQ/L (98-107); GLOMERULAR FILTRATION RATE 137 ML/MIN (>89); MAGNESIUM 1.4 MG/DL (1.5-2.5); POTASSIUM 3.5 MEQ/L (3.5-5.1); SODIUM (NA) 138 MEQ/L (136-145)
[2016-08-26 07:57] VITALS: BP 120/77; PULSE 74; RESP 17; TEMP 98.1; O2SAT 99
[2016-08-26 08:20] LABS: CREATINE KINASE 67 U/L (39-308)
[2016-08-26] MEDS: amLODIPine BESYLATE 5 MG TAB PO SCH (09:16)
[2016-08-26] MEDS: HEPARIN SODIUM - SQ 10,000 UNITS/ML VIAL SQ SCH ×2 (09:17→21:46)
[2016-08-26] MEDS: PANTOPRAZOLE SOD 40 MG DELAYED RELEASE TAB PO SCH (09:17)
[2016-08-26] MEDS: DOCUSATE SODIUM 50 MG/SENNA 8.6 MG TAB PO SCH ×2 (09:17→21:47)
[2016-08-26] MEDS: CALCIUM CARBONATE 1.25 GM (CA 500 MG) TAB PO SCH (09:17)
[2016-08-26] MEDS: OLANZapine 5 MG TAB PO SCH ×2 (09:25→21:47)
--- NOTE | 2016-08-26 12:22 | HHI.PR ---
Subjective Remarks Follow-up encephalopathy. Patient doing okay oriented 3. Denies suicidal ideations at this time. Discussed with physical therapy, ambulated with minimal assist. Discussed with RN to clarify with psychiatry regarding Lees act Objective Vitals Vital Signs Date Time Temp Pulse Resp B/P Pulse Ox O2 Delivery O2 Flow Rate FiO2 08/26/16 07:57 98.1 74 17 120/77 99 08/26/16 04:00 97.6 98 20 127/84 98 08/26/16 00:00 97.1 91 18 137/81 99 08/25/16 20:57 93 08/25/16 20:00 96.1 95 20 112/76 95 08/25/16 16:00 97.5 78 18 113/81 99 I/O 08/25/16 08/25/16 08/25/16 08/26/16 08/26/16 08/26/16 07:00 15:00 23:00 07:00 15:00 23:00 Intake Total 60 ml 360 ml 175 ml Output Total 300 ml 300 ml 240 ml Balance -240 ml 60 ml -65 ml Intake Oral 60 ml 360 ml 175 ml Output Urine Total 300 ml 300 ml 240 ml # Bowel Movements 0 1 1 Result Diagram: 08/26/16 0613 08/26/16 0613 Imaging Last Impressions Renal Ultrasound 08/19/16 0000 Signed Impressions: Service Date/Time: Friday, August 19, 2016 11:41 - CONCLUSION: Increased renal cortical echogenicity. No hydronephrosis Ed Monaco MD Head CT 08/19/16 0000 Signed Impressions: Service Date/Time: Friday, August 19, 2016 10:48 - CONCLUSION: Motion degraded exam grossly negative for acute process. Ed Monaco MD Chest X-Ray 08/18/16 1649 Signed Impressions: Service Date/Time: Thursday, August 18, 2016 17:12 - CONCLUSION: No acute cardiopulmonary disease. Mihir Palmer MD Objective Remarks GENERAL: Well-developed in no distress SKIN: Warm and dry. HEAD: Atraumatic. Normocephalic. EYES: Pupils equal and round. No scleral icterus. No injection or drainage. ENT: No nasal bleeding or discharge. Mucous membranes pink and moist. NECK: Trachea midline. No JVD. CARDIOVASCULAR: Regular rate and rhythm. RESPIRATORY: No accessory muscle use. Clear to auscultation. Breath sounds equal bilaterally. GASTROINTESTINAL: Abdomen soft, non-tender, nondistended. MUSCULOSKELETAL: Extremities without clubbing, cyanosis, or edema. No obvious deformities. NEUROLOGICAL: Awake and alert. No obvious cranial nerve deficits. Motor grossly within normal limits. Five out of 5 muscle strength in the arms and legs. Normal speech. PSYCHIATRIC: Appropriate mood and affect; insight and judgment normal. Calm and cooperative Date of Insertion: Aug 19, 2016 A/P Problem List: (1) Altered mental status ICD Code: R41.82 Status: Acute Assessment and Plan Metabolic and toxic Encephalopathy. Improving patient complains of monitor loss since he had accident. Consult speech therapy. Continue Neuro checks, CIWA protocol, Librium taper, Olanzapine per Psychiatry specialist, as needed Restraints for safety to prevent self-harm and seizure precautions. Acute Kidney Injury related to Severe dehydration. Resolved. Status post IV fluid hydration. Rhabdomyolysis. Resolved Suicidal ideation. He denies at this time. We'll clarify with Psychiatry if Lees act still appropriate Leukocytosis likely due to acute stress reaction. No signs or symptoms of infection. Resolved antibiotics have been discontinued EtOH abuse with no active withdrawal symptoms. As above. Continue CIWA protocol with benzodiazepines. Hypertension labile monitor and continue with antihypertensives with hold parameters. Decrease Apresoline Severe hypokalemiareplete and monitor. Magnesium level within normal limits. Neuropathy. Start Neurontin. Urinary retention. No UTI. Discontinue Saez catheter monitor with bladder scan GI Prophylaxis Protonix DVT Prophylaxis - SCDs and subcutaneous heparin Discharge Planning Discharge in 1-2 days Problem Qualifiers (1) Altered mental status: Qualified Code: R41.82 - Altered mental status, unspecified altered mental status type Bert Guajardo MD Aug 26, 2016 12:22
[2016-08-26] MEDS ORDERED: HYDR-3800 PO (12:26)
[2016-08-26] MEDS ORDERED: GABA100C4 PO (12:26)
[2016-08-26] MEDS ORDERED: METO-309 PO (12:26)
[2016-08-26] MEDS ORDERED: AMLO5 PO (12:26)
[2016-08-26] MEDS ORDERED: OLAN5TAB PO (12:26)
--- NOTE | 2016-08-26 12:26 | HHI.FF ---
Face to Face Verification Diagnosis: (1) Altered mental status (2) Alcohol abuse Physical Therapy Order: Evaluate and Treat, Improve ambulation, Strength and gait training Home Health Nursing Order: Medical education Medication education-adverse effect Nursing assessment with vital signs I have seen patient Nikolai Perez on 08/26/16. My clinical findings support the need for the requested home health care services because: Deconditioned w/ increased weakness I certify that my clinical findings support that this patient is homebound because: Impaired cognitive ability/safety Bert Guajardo MD Aug 26, 2016 12:26
--- NOTE | 2016-08-26 12:26 | HHI.DCPOC ---
Discharge Care Plan Diagnosis: (1) Altered mental status (2) Alcohol abuse Your Health Problems Are: Difficulty with ADL Exercise Tolerance Goals to Promote Your Health * To prevent worsening of your condition and complications * To maintain your health at the optimal level Directions to Meet Your Goals Take your medications as prescribed Follow your dietary instruction Follow activity as directed Keep your appointments as scheduled Take your immunizations and boosters as scheduled If your symptoms worsen call your PCP, if no PCP go to Urgent Care Center or Emergency Room Smoking is Dangerous to Your Health. Avoid second hand smoke Call the 24-hour hour crisis hotline for domestic abuse at Bert Guajardo MD Aug 26, 2016 12:26
[2016-08-26] MEDS ORDERED: MAGNESIUM SULFATE 1 GM PREMIX 100 ML IV ONE (12:45)
[2016-08-26] MEDS ORDERED: POTASSIUM CHLORIDE 20 MEQ CONTROLLED RELEASE TAB PO ONE (12:45)
[2016-08-26] MEDS: GABAPENTIN 100 MG CAP PO SCH ×2 (12:53→17:41)
[2016-08-26 16:16] VITALS: BP 100/62; PULSE 90; RESP 18; TEMP 96.2; O2SAT 97
[2016-08-26 20:00] VITALS: BP 118/75; PULSE 100; PULSE 101; RESP 16; TEMP 98; O2SAT 98
[2016-08-26] MEDS ORDERED: hydrALAZINE HCL 25 MG TAB PO SCH (21:00)
[2016-08-27] VITALS: BP 97/51; PULSE 91; RESP 17; TEMP 97.7; O2SAT 95
[2016-08-27] MEDS: CHLORHEXIDINE GLUCONATE 2 % 1 PACK (2 CLOTHS) TOP SCH (00:39)
[2016-08-27 01:06] VITALS: PULSE 90
[2016-08-27 04:00] VITALS: BP 103/62; PULSE 90; RESP 16; TEMP 97.2; O2SAT 97
[2016-08-27] MEDS: METOPROLOL TARTRATE 50 MG TAB PO SCH (05:15)
[2016-08-27 08:00] VITALS: BP 96/64; PULSE 106; RESP 18; TEMP 99.3; O2SAT 97
[2016-08-27] MEDS: PANTOPRAZOLE SOD 40 MG DELAYED RELEASE TAB PO SCH (08:12)
[2016-08-27] MEDS: CALCIUM CARBONATE 1.25 GM (CA 500 MG) TAB PO SCH (08:12)
[2016-08-27] MEDS: HEPARIN SODIUM - SQ 10,000 UNITS/ML VIAL SQ SCH (08:13)
[2016-08-27] MEDS: GABAPENTIN 100 MG CAP PO SCH (08:13)
[2016-08-27] MEDS: DOCUSATE SODIUM 50 MG/SENNA 8.6 MG TAB PO SCH (08:15)
[2016-08-27 08:20] VITALS: PULSE 99
[2016-08-27] MEDS: amLODIPine BESYLATE 5 MG TAB PO SCH (09:00)
[2016-08-27] MEDS: OLANZapine 5 MG TAB PO SCH (09:00)
--- NOTE | 2016-08-27 09:04 | HHI.PR ---
Subjective Remarks Follow-up encephalopathy and urinary retention. He is awake and oriented. Denies hallucinations and depression. He has been voiding. Swears not going to drink again. Discussed with RN Objective Vitals Vital Signs Date Time Temp Pulse Resp B/P Pulse Ox O2 Delivery O2 Flow Rate FiO2 08/27/16 04:00 97.2 90 16 103/62 97 08/27/16 01:06 90 08/27/16 00:00 97.7 91 17 97/51 95 08/26/16 20:00 101 08/26/16 20:00 98.0 100 16 118/75 98 08/26/16 16:16 96.2 90 18 100/62 97 I/O 08/26/16 08/26/16 08/26/16 08/27/16 08/27/16 08/27/16 07:00 15:00 23:00 07:00 15:00 23:00 Intake Total 175 ml 600 ml 600 ml 480 ml Output Total 240 ml 150 ml 200 ml Balance -65 ml 450 ml 400 ml 480 ml Intake Oral 175 ml 600 ml 600 ml 480 ml Output Urine Total 240 ml 150 ml 200 ml Bladder Scan Volume Amount 109 ml 109 ml # Voids 2 # Bowel Movements 1 2 1 Result Diagram: 08/26/1613 08/26/16612 Objective Remarks GENERAL: Well-developed in no distress SKIN: Warm and dry. HEAD: Atraumatic. Normocephalic. EYES: Pupils equal and round. No scleral icterus. No injection or drainage. ENT: No nasal bleeding or discharge. Mucous membranes pink and moist. NECK: Trachea midline. No JVD. CARDIOVASCULAR: Regular rate and rhythm. RESPIRATORY: No accessory muscle use. Clear to auscultation. Breath sounds equal bilaterally. GASTROINTESTINAL: Abdomen soft, non-tender, nondistended. MUSCULOSKELETAL: Extremities without clubbing, cyanosis, or edema. No obvious deformities. NEUROLOGICAL: Awake and alert. No obvious cranial nerve deficits. Motor grossly within normal limits. Five out of 5 muscle strength in the arms and legs. Normal speech. PSYCHIATRIC: Appropriate mood and affect; insight and judgment normal. Calm and cooperative Procedures none Date of Insertion: Aug 19, 2016 A/P Problem List: (1) Altered mental status ICD Code: R41.82 Status: Acute Assessment and Plan Metabolic and toxic Encephalopathy. Improving. Consulted speech therapy recommended outpatient follow-up. Continue Neuro checks, CIWA protocol, Librium taper, Olanzapine per Psychiatry specialist, as needed Restraints for safety to prevent self-harm and seizure precautions. Acute Kidney Injury related to Severe dehydration. Resolved. Status post IV fluid hydration. Rhabdomyolysis. Resolved Suicidal ideation. He denies at this time. Discussed with psychiatry and Lees act will be lifted Leukocytosis likely due to acute stress reaction. No signs or symptoms of infection. Resolved antibiotics have been discontinued EtOH abuse with no active withdrawal symptoms. As above. Continue CIWA protocol with benzodiazepines. Hypertension labile monitor and continue with antihypertensives with hold parameters. Discontinue Apresoline patient has not received this medication secondary to hold parameters Severe hypokalemiareplete and monitor. Magnesium level within normal limits. Neuropathy. Continue Neurontin. Urinary retention. No UTI. Resolved GI Prophylaxis Protonix DVT Prophylaxis - SCDs and subcutaneous heparin Discharge Planning Stable for discharge Problem Qualifiers (1) Altered mental status: Qualified Code: R41.82 - Altered mental status, unspecified altered mental status type Bert Guajardo MD Aug 27, 2016 09:04
[2016-08-27 12:00] VITALS: BP 112/71; PULSE 100; RESP 18; TEMP 98.1; O2SAT 97
--- NOTE | 2016-08-27 14:09 | HHI.DS ---
Discharge Summary Admission Date Aug 18, 2016 at 18:56 Discharge Date: Aug 27, 2016 Admitting Diagnosis AMS, JOE (1) Altered mental status ICD Code: R41.82 Diagnosis: Principal Procedures none Brief History - From Admission 56 y/o man has been hiding in a hole in his girlfriends back yard for 2-3 days and arrives to ED by EMS with severe kidney failure and dehydration. He is encephalopathic and disheveled. The rapidity of renal deterioration from his baseline 4 days ago implicates a possible nephrotoxin. We will check his osmolality and pursue the possibility of ingested poisons. Leave K uncorrected for now until we know he makes urine. Lees Act back in effect. Recent admission 4 days ago involved ETOH binging and suicidal ideation. He was cleared by psych prior to discharge. CBC/BMP: 08/26/16 0613 08/26/16 0613 Significant Findings Laboratory Tests Test 08/25/16 08/26/16 06:56 06:13 Red Blood Count 3.50 MIL/MM3 3.44 MIL/MM3 (4.50-5.90) (4.50-5.90) Hemoglobin 12.6 GM/DL 12.2 GM/DL (13.0-17.0) (13.0-17.0) Hematocrit 36.0 % 35.6 % (39.0-51.0) (39.0-51.0) Mean Corpuscular Volume 102.8 FL 103.3 FL (80.0-100.0) (80.0-100.0) Mean Corpuscular Hemoglobin 35.9 PG 35.4 PG (27.0-34.0) (27.0-34.0) Neutrophils (%) (Auto) 70.2 % (16.0-70.0) Monocytes (%) (Auto) 10.0 % 11.4 % (0.0-8.0) (0.0-8.0) Creatinine 0.52 MG/DL (0.60-1.30) Phosphorus Level 2.1 MG/DL (2.5-4.9) Magnesium Level 1.4 MG/DL 1.4 MG/DL (1.5-2.5) (1.5-2.5) Monocytes # (Auto) 1.1 TH/MM3 (0-0.9) Folate GREATER THAN 20.0 NG/ML (3.1-17.5) Imaging Last Impressions Renal Ultrasound 08/19/16 0000 Signed Impressions: Service Date/Time: Friday, August 19, 2016 11:41 - CONCLUSION: Increased renal cortical echogenicity. No hydronephrosis Ed Monaco MD Head CT 08/19/16 0000 Signed Impressions: Service Date/Time: Friday, August 19, 2016 10:48 - CONCLUSION: Motion degraded exam grossly negative for acute process. Ed Monaco MD Chest X-Ray 08/18/16 1649 Signed Impressions: Service Date/Time: Thursday, August 18, 2016 17:12 - CONCLUSION: No acute cardiopulmonary disease. Mihir Palmer MD PE at Discharge GENERAL: Well-developed in no distress SKIN: Warm and dry. HEAD: Atraumatic. Normocephalic. EYES: Pupils equal and round. No scleral icterus. No injection or drainage. ENT: No nasal bleeding or discharge. Mucous membranes pink and moist. NECK: Trachea midline. No JVD. CARDIOVASCULAR: Regular rate and rhythm. RESPIRATORY: No accessory muscle use. Clear to auscultation. Breath sounds equal bilaterally. GASTROINTESTINAL: Abdomen soft, non-tender, nondistended. MUSCULOSKELETAL: Extremities without clubbing, cyanosis, or edema. No obvious deformities. NEUROLOGICAL: Awake and alert. No obvious cranial nerve deficits. Motor grossly within normal limits. Five out of 5 muscle strength in the arms and legs. Normal speech. PSYCHIATRIC: Appropriate mood and affect; insight and judgment normal. Calm and cooperative Hospital Course Metabolic and toxic Encephalopathy. Improving. Consulted speech therapy recommended outpatient follow-up. Continue Neuro checks, CIWA protocol, Librium taper, Olanzapine per Psychiatry specialist, as needed Restraints for safety to prevent self-harm and seizure precautions. Acute Kidney Injury related to Severe dehydration. Resolved. Status post IV fluid hydration. Rhabdomyolysis. Resolved Suicidal ideation. He denies at this time. Discussed with psychiatry and Lees act will be lifted Leukocytosis likely due to acute stress reaction. No signs or symptoms of infection. Resolved antibiotics have been discontinued EtOH abuse with no active withdrawal symptoms. As above. Continue CIWA protocol with benzodiazepines. Hypertension labile monitor and continue with antihypertensives with hold parameters. Discontinue Apresoline patient has not received this medication secondary to hold parameters Severe hypokalemiareplete and monitor. Magnesium level within normal limits. Neuropathy. Continue Neurontin. Urinary retention. No UTI. Resolved GI Prophylaxis Protonix DVT Prophylaxis - SCDs and subcutaneous heparin Pt Condition on Discharge: Stable Discharge Disposition: Disch w/ Home Health Serv Discharge Time: > 30 minutes Discharge Instructions DIET: Follow Instructions for: Heart Healthy Diet Activities you can perform: Regular-No Restrictions Activities to Avoid: Driving Follow up Referrals: PCP Follow-up - 1 Week Speech Therapy - 1 Week New Medications: Amlodipine (Norvasc) 5 Mg Tab 5 MG PO DAILY Blood Pressure Management #30 TAB Gabapentin (Gabapentin) 100 Mg Cap 100 MG PO TID Pain Management #90 CAP Metoprolol Tartrate (Lopressor) 50 Mg Tab 50 MG PO Q8HR Blood Pressure Management #90 TAB Olanzapine (Olanzapine) 5 Mg Tab 5 MG PO Q12HR agitation #60 TAB Additional Information I spent 35 minutes [id number] with the patient or on the vanessa discussing the patient's disposition, prognosis, and plan of care with patient's caregivers. Over half the time spent was devoted to counseling the patient regarding placement in coordinating care with caregivers and case management. Bert Guajardo MD Aug 27, 2016 14:09
== END 2016-08-27 12:30 | disposition home health service (06) | DRG 91 ==
LOC: NEPE 16:23 → NEDA 18:56 → HIMW 20:50 → N06A 08-25 → N06B 08-26 10:20 → N06A 08-26 10:29
PROVIDERS: ADMIT Internal Medicine; ATTEND Internal Medicine
DX: G92 Toxic encephalopathy (principal); G93.41 Metabolic encephalopathy; N17.9 Acute kidney failure, unspecified; E87.0 Hyperosmolality and hypernatremia; E46 Unspecified protein-calorie malnutrition; M62.82 Rhabdomyolysis; E83.42 Hypomagnesemia; R45.851 Suicidal ideations; Z68.1 Body mass index [BMI] 19.9 or less, adult; F10.239 Alcohol dependence with withdrawal, unspecified; E83.51 Hypocalcemia; G62.9 Polyneuropathy, unspecified; Z78.1 Physical restraint status; E83.39 Other disorders of phosphorus metabolism; E86.0 Dehydration; F43.0 Acute stress reaction; D72.829 Elevated white blood cell count, unspecified; I10 Essential (primary) hypertension; E87.6 Hypokalemia; R33.9 Retention of urine, unspecified; Z72.0 Tobacco use; R82.5 Elevated urine levels of drugs, medicaments and biological substances; T14.8 Other injury of unspecified body region; W57.XXXA Bitten or stung by nonvenomous insect and other nonvenomous arthropods, initial encounter; X58.XXXA Exposure to other specified factors, initial encounter; J44.9 Chronic obstructive pulmonary disease, unspecified; Z87.11 Personal history of peptic ulcer disease
CPT/HCPCS: 36600; 51702; 70450; 71010; 76775; 80048; 80053; 80202; 80307; 81001; 82140; 82306; 82550; 82552; 82607; 82746; 82805; 83605; 83735; 83930; 83970; 84100; 84132; 84155; 84443; 84484; 85025; 85027; 85610; 85730; 86160; 87040; 87086; 87205; 87641; 93005; 96374; 96375; C9113; J0360; J0610; J0692; J1644; J2060; J2543; J3370; J3411; J3475; J3480; J7030; J7040; J7050; J7070